=== PATIENT | female | born 1950 | race Caucasian/White ===

== ENCOUNTER → 2017-12-19 12:17 | Outpatient (CLI) | payer OTHER, SELFPAY ==
--- NOTE | 2017-12-19 | DI.CT.S_ITS ---
PROCEDURE: CT ABDOMEN PELVIS W CON INDICATIONS: RIGHT LOWER QUADRANT PAIN TECHNIQUE: After the administration of oral and intravenous contrast, 5 mm thick sections acquired from the diaphragms to the symphysis. 5 mm thick coronal and sagittal reformats were performed. For radiation dose reduction, the following was used: automated exposure control, adjustment of mA and/or kV according to patient size. COMPARISON: [facility], CT, ABDOMEN/PELVIS WITH CONTRAST, 12/10/2012, 15:11. FINDINGS: Image quality: Adequate ABDOMEN: Lung bases: Lung bases are clear. Heart size is normal. Solid organs: Liver is normal in size and enhancement. Gallbladder is present. Biliary system is non-dilated. Pancreas enhances normally. Spleen is normal in enhancement. Mildly prominent splenic size. No adrenal nodules. Kidneys are normal in size and enhancement, without hydronephrosis. Peritoneum and bowel: Mild wall thickening in the proximal stomach. Small bowel, and colon loops are normal in caliber and wall thickness. The colon is patulous and contains a moderate amount of stool. The cecum is in the right upper quadrant. The appendix is not identified. There are no secondary signs of acute appendicitis. No free fluid or air. Nodes and vessels: No retroperitoneal or mesenteric adenopathy. Aorta and inferior vena cava are normal in caliber. Miscellaneous: No ventral hernias. PELVIS: Genitourinary: Mild bladder wall thickening. Hysterectomy with increased soft tissue density in the expected location of the cervix. Miscellaneous: Fat-containing left-sided inguinal hernia. No adenopathy. Bones: No suspicious bony lesions. No vertebral body compression fractures. IMPRESSION: 1. Bladder wall thickening with increased soft tissue density in the expected location of the cervix. An underlying mass lesion cannot be excluded. Age-indeterminate inflammatory change is also possible. 2. Markedly patulous colon with the cecum in the right upper quadrant. No obstruction or perforation. 3. Mild wall thickening in the proximal stomach may be due to underdistention. Underlying mass cannot be excluded. 4. There is no specific right lower quadrant abnormality to correspond with the clinical area of concern. Dictated by: Kaiden Lao M.D. on 12/19/2017 at 13:56 Approved by: Kaiden Lao M.D. on 12/19/2017 at 14:04
== END ==
PROVIDERS: PCP Internal Medicine; Visit Provider Physician Assistant
DX: R10.31 Right lower quadrant pain (principal); N32.89 Other specified disorders of bladder
CPT/HCPCS: 74177; Q9967

== ENCOUNTER → 2017-12-25 11:00 | Outpatient (CLI) | payer OTHER, SELFPAY ==
--- NOTE | 2017-12-25 | DI.US.S_ITS ---
PROCEDURE: US PELVIC COMPLETE INDICATIONS: BLADDER WALL THICKENING TECHNIQUE: Real-time scanning was performed of the pelvic organs, with image documentation. Additional endovaginal scanning was necessary due to incomplete visualization of the adnexal and endometrial structures by transabdominal scanning. COMPARISON: [facility], CT, CT ABDOMEN PELVIS W CON, 12/19/2017, 13:09. FINDINGS: Transabdominal scanning: Limited scanning through the kidneys shows no hydronephrosis. No pathologic free abdominal or pelvic fluid. Endovaginal scanning: Uterus: Surgically absent. No soft tissue mass is seen posterior to the bladder. Ovaries: Normal right ovary measuring 1.8 x 0.9 x 1.8 cm. Left ovary is not visualized. IMPRESSION: No soft tissue mass seen posterior to the bladder and the urinary bladder appears grossly normal. Dictated by: Milton GALE Interpreted: Jeremy Nelson MD on 12/25/2017 at 13:55 Approved by: Jeremy Nelson M.D. on 12/25/2017 at 21:40
--- NOTE | 2017-12-25 | DI.US.S_ITS ---
PROCEDURE: US ABDOMEN COMPLETE INDICATIONS: Mild wall thickening in abdomen and pelvis TECHNIQUE: Real-time scanning was performed of the abdominal and retroperitoneal organs, with image documentation. COMPARISON: [facility], CT, CT ABDOMEN PELVIS W CON, 12/19/2017, 13:09. [facility], US, ABDOMEN COMPLETE, 11/26/2012, 16:12. FINDINGS: Liver: Liver is normal in size and homogeneous in echotexture. Gallbladder: No gallstones identified. Normal gallbladder wall. No pericholecystic fluid. Negative sonographic Valentin sign. Biliary ducts: Intrahepatic bile ducts are non-dilated. Extrahepatic bile duct caliber measures 6.0 mm. Normal is 6-7 mm or less in diameter, or 10 mm or less post-cholecystectomy. Pancreas: Visualized portions of the pancreas are sonographically normal. Spleen: Spleen is normal in size and homogeneous in echotexture. Kidneys: Kidneys are normal in size and echotexture. Right kidney measures 8.1 cm long; left kidney measures 8.2 cm long. No hydronephrosis or nephrolithiasis. No solid masses. Aorta: Visualized aorta is normal in caliber at less than 3 cm. Iliacs: Proximal common iliac arteries are normal in caliber at less than 2.5 cm. IVC: Intrahepatic inferior vena cava is patent. Miscellaneous: No free abdominal fluid. IMPRESSION: Normal exam. Dictated by: Milton CHIN Interpreted: Jeremy Nelsno MD on 12/25/2017 at 13:52 Approved by: Jeremy Nelson M.D. on 12/25/2017 at 21:40
== END ==
PROVIDERS: PCP Internal Medicine; Visit Provider Physician Assistant
DX: N32.89 Other specified disorders of bladder (principal); R93.5 Abnormal findings on diagnostic imaging of other abdominal regions, including retroperitoneum
CPT/HCPCS: 76700; 76856

== ENCOUNTER → 2018-07-08 16:27 | Outpatient (CLI) | payer OTHER, SELFPAY ==
--- NOTE | 2018-07-08 16:32 | DI.RAD.S_ITS ---
PROCEDURE: XR TIBIA FUBULA RT 2V INDICATIONS: RIGHT LOWER LEG PAIN TECHNIQUE: 2 views of the tibia and fibula were acquired. COMPARISON: None. FINDINGS: Bones: No fractures or dislocations. No suspicious bony lesions. No focal osseous destruction. Soft tissues: No suspicious soft tissue calcifications or masses. IMPRESSION: No focal osseous destruction to suggest advanced osteomyelitis. No fracture. Dictated by: Ayo Beckman M.D. on 07/08/2018 at 16:53 Approved by: Ayo Beckman M.D. on 07/08/2018 at 16:55
== END ==
PROVIDERS: PCP Internal Medicine; Visit Provider Internal Medicine
DX: M79.661 Pain in right lower leg (principal)
CPT/HCPCS: 73590

== ENCOUNTER → 2018-08-08 13:23 | Outpatient (REF) | payer OTHER, SELFPAY | LOC: LAB 13:23 | PROVIDERS: PCP Internal Medicine; Visit Provider Internal Medicine | DX: S81.801A Unspecified open wound, right lower leg, initial encounter (principal) | CPT/HCPCS: 87070; 87077; 87147; 87186; 87205 ==

== ENCOUNTER → 2018-08-13 10:54 | Outpatient (CLI) | payer OTHER, SELFPAY | PROVIDERS: PCP Internal Medicine; Visit Provider Family Medicine | DX: I87.2 Venous insufficiency (chronic) (peripheral) (principal); L97.812 Non-pressure chronic ulcer of other part of right lower leg with fat layer exposed; A49.02 Methicillin resistant Staphylococcus aureus infection, unspecified site; Z92.25 Personal history of immunosuppression therapy | CPT/HCPCS: 11042; 99203; 99213 ==

== ENCOUNTER → 2018-08-23 13:48 | Outpatient (CLI) | payer OTHER, SELFPAY | PROVIDERS: PCP Internal Medicine; Visit Provider Family Medicine | DX: I87.2 Venous insufficiency (chronic) (peripheral) (principal); L97.811 Non-pressure chronic ulcer of other part of right lower leg limited to breakdown of skin; A49.02 Methicillin resistant Staphylococcus aureus infection, unspecified site; L08.9 Local infection of the skin and subcutaneous tissue, unspecified; Z92.25 Personal history of immunosuppression therapy | CPT/HCPCS: 11104; 87070; 87075; 87205 ==

== ENCOUNTER → 2018-08-28 09:36 | Outpatient (CLI) | payer OTHER, SELFPAY | PROVIDERS: PCP Internal Medicine; Visit Provider Family Medicine | DX: I87.2 Venous insufficiency (chronic) (peripheral) (principal); L97.811 Non-pressure chronic ulcer of other part of right lower leg limited to breakdown of skin; Z92.25 Personal history of immunosuppression therapy | CPT/HCPCS: 97597 ==

== ENCOUNTER → 2018-09-04 15:05 | Outpatient (CLI) | payer OTHER, SELFPAY | PROVIDERS: PCP Internal Medicine; Visit Provider Family Medicine | DX: I87.2 Venous insufficiency (chronic) (peripheral) (principal); L97.811 Non-pressure chronic ulcer of other part of right lower leg limited to breakdown of skin; Z92.25 Personal history of immunosuppression therapy; L08.9 Local infection of the skin and subcutaneous tissue, unspecified | CPT/HCPCS: 97597 ==

== ENCOUNTER → 2018-09-11 13:21 | Outpatient (CLI) | payer OTHER, SELFPAY | PROVIDERS: PCP Internal Medicine; Visit Provider Family Medicine | DX: I87.2 Venous insufficiency (chronic) (peripheral) (principal); L97.812 Non-pressure chronic ulcer of other part of right lower leg with fat layer exposed; Z92.25 Personal history of immunosuppression therapy | CPT/HCPCS: 97597 ==

== ENCOUNTER → 2018-09-18 13:11 | Outpatient (CLI) | payer OTHER, SELFPAY | PROVIDERS: PCP Internal Medicine; Visit Provider Family Medicine | DX: Z48.817 Encounter for surgical aftercare following surgery on the skin and subcutaneous tissue (principal); I87.2 Venous insufficiency (chronic) (peripheral); Z92.25 Personal history of immunosuppression therapy | CPT/HCPCS: 99212 ==

== ENCOUNTER → 2019-04-16 14:33 | Outpatient (CLI) | payer OTHER, SELFPAY | PROVIDERS: PCP Internal Medicine; Visit Provider Specialist | DX: R30.0 Dysuria (principal) | CPT/HCPCS: 87086 ==

== ENCOUNTER → 2019-04-24 08:01 | Outpatient (CLI) | payer OTHER, SELFPAY ==
--- NOTE | 2019-04-24 | DI.MRI.S_ITS ---
PROCEDURE: MR HEAD/BRAIN WO CON INDICATIONS: DOUBLE VISION TECHNIQUE: Non-contrast axial T1 spin echo, axial T2 fast spin echo, sagittal and axial FLAIR, coronal T2 fast spin echo, axial gradient echo, axial diffusion and ADC through the brain. COMPARISON: [facility], CT, SINUS SCREEN WO CONTRAST, 06/30/2016, 13:47. FINDINGS: Image quality: Excellent. CSF spaces: Ventricles appear symmetric in size and shape. Basal cisterns are patent. No extra-axial fluid collections. Brain: No intracranial bleeds or mass effects. There is mild cerebral volume loss for age. There are mild periventricular and deep white matter chronic small vessel ischemic changes. Brainstem appears normal. Diffusion-weighted images show no acute ischemic insults. No chronic ischemic insults. Normal intravascular flow voids are present. Skull and face: Calvarial bone marrow is normal in signal. Orbits are normal. Sinuses: Mild ethmoid sinus mucosal thickening bilaterally. Mastoids are clear. IMPRESSION: 1. No acute intracranial abnormalities. 2. Mild cerebral volume loss and chronic microvascular ischemic changes. 3. Mild bilateral ethmoid sinus mucosal thickening. Dictated by: Bonifacio Harris M.D. on 04/24/2019 at 9:15 Approved by: Bonifacio Harris M.D. on 04/24/2019 at 10:57
== END ==
PROVIDERS: PCP Internal Medicine; Visit Provider Internal Medicine
DX: H53.2 Diplopia (principal); J32.2 Chronic ethmoidal sinusitis
CPT/HCPCS: 70551

== ENCOUNTER → 2019-09-29 16:24 | Outpatient (CLI) | payer OTHER, SELFPAY ==
--- NOTE | 2019-09-29 16:29 | DI.RAD.S_ITS ---
PROCEDURE: XR FINGER LT MIN 2V INDICATIONS: GOUT TECHNIQUE: AP hand, 2 views of the first finger(s) acquired. COMPARISON: None. FINDINGS: Bones: No fractures or dislocations. Osteoarthritic changes are noted at first CMC joint, first MCP joint and first interphalangeal joint. No gross bony erosive changes are seen. No suspicious bony lesions. Soft tissues: No suspicious soft tissue calcifications. IMPRESSION: Osteoarthritic changes throughout left thumb. No bony erosive changes. No fracture or dislocation. Dictated by: Randall Mortensen M.D. on 09/29/2019 at 18:21 Approved by: Randall Mortensen M.D. on 09/29/2019 at 18:22
== END ==
PROVIDERS: PCP Internal Medicine; Referring Provider Internal Medicine; Visit Provider Internal Medicine
DX: M10.9 Gout, unspecified (principal)
CPT/HCPCS: 73140

== ENCOUNTER 2019-12-26 16:49 | Emergency (ER) | payer OTHER, SELFPAY ==
[2019-12-26 16:51] VITALS: BP 133/61; PULSE 74; RESP 18; TEMP 36.6; O2SAT 98; BMI 22.6
--- NOTE | 2019-12-26 17:00 | DI.RAD.S_ITS ---
PROCEDURE: XR FOREARM RT 2V INDICATIONS: check for cat teeth TECHNIQUE: 2 views of the forearm were acquired. COMPARISON: None. FINDINGS: Bones: No fractures or dislocations. No suspicious bony lesions. Soft tissues: No suspicious soft tissue calcifications or masses. No radiodense foreign body in soft tissue. IMPRESSION: 1. No radiodense foreign bodies the soft tissue, specifically cat teeth. Dictated by: Geneva Hinojosa M.D. on 12/26/2019 at 17:25 Approved by: Geneva Hinojosa M.D. on 12/26/2019 at 17:26
--- NOTE | 2019-12-26 17:32 | ED_ITS ---
HPI - Extremity Injury (Upper) <Sweetie Dale PA-C - Last Filed: 12/26/19 23:39> General Chief Complaint: Extremity Injury, Upper Stated Complaint: RIGHT ARM CAT BITE Time Seen by Provider: 12/26/19 17:31 Source: patient Mode of arrival: Ambulatory Limitations: no limitations History of Present Illness HPI narrative: This is a well-appearing 69-year-old presents to the emergency department with isolated complaint of cat bite to her right forearm that was sustained yesterday with associated increased redness and tenderness in the area of the bite. She was taking both her dog and her cat to the vet when her cat escaped from the cat carrier and she is able to get it back in, but it was very upset; she was holding it at the vet while they were working with it and giving shots/trimmimg hair and he bit her arm, puncturing it in four places. She washed the area and hope that it would not become infected, however this morning she saw that 2 of these puncture wounds were starting to ooze and she was having some redness developed on her arm, the redness worsened and she presented to the emergency department because of this. She states that this is an isolated injury and she has no other complaints or concerns. She notes an allergy to penicillin. Also notes that she is currently taking doxycycline 200 per day for rosacea flare. She denies fever, nausea, vomiting, chills, diarrhea, or any other symptoms. complaint: injury to: right and forearm Onset (ago): day(s) (1) Other Extremity Injury: Right: arm Other injuries: none Handedness: right Place: other (vet) Severity: mild Severity scale (1-10): 2 Relieving factors: none Exacerbating factors: none Context: other (Cat bite) Associated symptoms: denies other symptoms Treatments prior to arrival: other (Is current lead taking doxycycline for rosacea) Related Data Home Medications Medication Instructions Recorded Confirmed acyclovir [Zovirax] 400 mg BID #0 06/23/16 04/16/19 budesonide 3 mg 3 mg PO DAILY 04/16/19 04/16/19 capsule,delayed,extended release Previous Rx's Medication Instructions Recorded estradiol 0.5 mg tablet 0.5 mg PO QDAY #90 tab 04/16/19 sulfamethoxazole 800 1 tab PO BID #10 tab 04/16/19 mg-trimethoprim 160 mg tablet oxybutynin chloride 10 mg 10 mg PO QDAY #90 tab 06/24/19 tablet,extended release 24 hr sulfamethoxazole-trimethoprim 1 tab PO BID #14 tab 12/26/19 [Bactrim DS] Allergies Allergy/AdvReac Type Severity Reaction Status Date / Time Penicillins Allergy Mild RASH Verified 04/16/19 14:23 Review of Systems <Sweetie Dale PA-C - Last Filed: 12/26/19 23:39> Review of Systems Narrative: GENERAL: Denies chills, fatigue, malaise, fever, sweats. HEENT: Denies sinus pain, ear pain, sore throat, difficulty swallowing, dizziness. RESPIRATORY: Denies dyspnea, cough, wheezing, hemoptysis, sputum. CARDIOVASCULAR: Denies chest pain, palpitations, orthopnea, edema MUSCULOSKELETAL: denies weakness, joint pain, or bony pain SKIN: Denies rash, positive for forarm skin swelling with erythema increasing in size 1st noticed this morning with some leakage of fluid from puncture wounds, or other NEUROLOGIC: Denies weakness, headache, numbness, change in speech, confusion, seizures, incoordination. PSYCHIATRIC: No concerning psychosocial issues. 12 point review of systems is negative except for those stated above ROS Unobtainable: All systems reviewed & are unremarkable except as noted in HPI and below Patient History <Sweetie Dale PA-C - Last Filed: 12/26/19 23:39> Medical History Cystocele (Acute) Postmenopausal hormone replacement therapy (Acute) Recurrent UTI (Acute) Surgical History History of tonsillectomy Status post laparoscopic supracervical hysterectomy Family History Brother Age: 66 Mental health problem Alcoholic Father Alcoholic Mother Mental health problem Alcoholic Social History Smoking Status: Never smoker Smoking Status: Never smoker Substance Use Type: does not use Exam <Sweetie Dale PA-C - Last Filed: 12/26/19 23:39> Narrative Exam Narrative: GENERAL: 69 year old patient appears younger than stated age. Well-nourished, well-developed patient, in mild distress. HEAD: Atraumatic. Normocephalic. EYES: Pupils equal round and reactive. Extraocular motions intact. No scleral icterus. No injection or drainage. ENT: Nose without bleeding, purulent drainage. Throat without erythema, tonsillar hypertrophy or exudate. Airway patent. NECK: Trachea midline. Non tender CARDIOVASCULAR: Regular rate and rhythm without murmurs, gallops, or rubs. RESPIRATORY: Clear to auscultation. Breath sounds equal bilaterally. No wheezes, rales, or rhonchi. EXTREMITIES: There is an approximately 7 x 10 area of erythema with poorly defined edges on her anterior right forearm with 4 small puncture wounds consistent with a cat bite, there is associated tenderness, no drainage is no robert, there is some heat present. No clear streaking up the arm is noted, however the area of erythema does appear to be extending towards the antecubital fossa. No edema or joint tenderness. BACK: Nontender without deformity or crepitance. No flank tenderness. NEURO: AOx3. SKIN: No rash or erythema of visible areas Initial Vital Signs Initial Vital Signs: Vital Signs Temperature 97.8 F 12/26/19 16:51 Pulse Rate 74 12/26/19 16:51 Respiratory Rate 18 12/26/19 16:51 Blood Pressure 133/61 12/26/19 16:51 Pulse Oximetry 98 12/26/19 16:51 <Khang Moyer MD - Last Filed: 01/09/20 07:53> Initial Vital Signs Initial Vital Signs: Vital Signs Temperature 97.8 F 12/26/19 16:51 Pulse Rate 74 12/26/19 16:51 Respiratory Rate 18 12/26/19 16:51 Blood Pressure 133/61 12/26/19 16:51 Pulse Oximetry 98 12/26/19 16:51 Course <Sweetie Dale PA-C - Last Filed: 12/26/19 23:39> Course Course Narrative: Area of erythema was marked with a skin marker. Orders Ordered: Discontinued Medications Trimethoprim/Sulfamethoxazole (Bactrim Ds) 1 tab PO NOW ONE Stop: 12/26/19 18:16 Last Admin: 12/26/19 18:23 Dose: 1 tab Documented by: BTASHA Vital Signs Vital signs: Vital Signs - 8 hr 12/26/19 16:51 12/26/19 19:30 Temperature 97.8 F Pulse Rate 74 62 Respiratory Rate 18 15 Blood Pressure 133/61 171/78 H Pulse Oximetry 98 99 <Khang Moyer MD - Last Filed: 01/09/20 07:53> Orders Ordered: Discontinued Medications Trimethoprim/Sulfamethoxazole (Bactrim Ds) 1 tab PO NOW ONE Stop: 12/26/19 18:16 Last Admin: 12/26/19 18:23 Dose: 1 tab Documented by: ABDULLAHI Vital Signs Vital signs: Vital Signs - 8 hr 12/26/19 16:51 12/26/19 19:30 Temperature 97.8 F Pulse Rate 74 62 Respiratory Rate 18 15 Blood Pressure 133/61 171/78 H Pulse Oximetry 98 99 MDM - Extremity Injury (Upper) <Sweetie Dale PA-C - Last Filed: 12/26/19 23:39> Differential Diagnosis Differential diagnosis: Likely other (cat bite, cellulitis) Medical Records Attestation: I reviewed the patient's medical records. Imaging Data Extremity x-ray #1: Attestation: I personally reviewed and interpreted this imaging study as follows: Radiologist's Impression: [place] [address] XRay Report Signed Patient: Ann Murcia JMR#: [id number] : 8Acct:[id number] Age/Sex: 69 / FDate of Service: 12/26/19 Loc: ED Accession Number: [id number] Procedure: XR forearm RT 2V Ordering Provider: Khang Moyer MD PROCEDURE: XR FOREARM RT 2V INDICATIONS: check for cat teeth TECHNIQUE: 2 views of the forearm were acquired. COMPARISON: None. FINDINGS: Bones: No fractures or dislocations. No suspicious bony lesions. Soft tissues: No suspicious soft tissue calcifications or masses. No radiodense foreign body in soft tissue. IMPRESSION: 1. No radiodense foreign bodies the soft tissue, specifically cat teeth. Dictated by: Geneva Hinojosa M.D. on 12/26/2019 at 17:25 Approved by: Geneva Hinojosa M.D. on 12/26/2019 at 17:26 MDM Narrative Medical decision making narrative: This is a well-appearing 69-year-old who presented with complaint of a cat bite sustained yesterday while after that, who woke up with erythema and tenderness to her forearm around the bite this morning that has been worsening today. This was an isolated complaint. I have low suspicion for a systemic infection, based on her exam, vitals, and history. She does appear to have a cellulitis associated with the bite she sustained yesterday, she is currently taking doxycycline for rosacea, and she has a penicillin allergy. She is prescribed Bactrim for 7 days and advised to f ollow-up with her PCP closely and watch carefully for worsening or changing of her symptoms. She was provided with emergency return precautions and all questions were answered. Discharge Plan Departure Patient Disposition: Home Clinical Impression: Cat bite involving extremity Discharge Date/Time: 12/26/19 19:31 Instructions: How to Care for a Domestic Animal Bite, DI for Animal Bites Activity Restrictions/Additional Instructions: Thank you for letting be part of your care to the emergency department. There is no evidence of an emergent or life threatening illness at this time, but follow up with your doctor in 1-2 days is recommended nonetheless to continue to rule out serious underlying causes of your symptoms. Please call the office for an appointment. Please return to the Emergency Department for any worsening or persistent symptoms. Please take medications as directed. Please take the prescribed medication (Bactrim) for the next 7 days it is okay to take this in addition to the doxycycline that you are taking currently is that this prescription electronically to [facility] as we discussed.. Please monitor for any signs of worsening infection as we discussed. And I recommend you follow-up with your primary care physician in the next 2-5 days to be reassessed. Prescriptions: New sulfamethoxazole-trimethoprim [Bactrim DS] 800-160 mg tablet 1 tab PO BID Qty: 14 RF: 0 No Action acyclovir [Zovirax] 200 mg capsule 400 mg BID Qty: 0 RF: 0 oxybutynin chloride 10 mg tablet extended release 24hr 10 mg PO QDAY Qty: 90 RF: 2 budesonide 3 mg capsule,delayed,extend.release 3 mg PO DAILY RF: 0 estradiol 0.5 mg tablet 0.5 mg PO QDAY Qty: 90 RF: 3 sulfamethoxazole-trimethoprim [Bactrim DS] 800-160 mg tablet 1 tab PO BID Qty: 10 RF: 1 Referrals: Abdiel Kang MD [Primary Care Provider] -
[2019-12-26] MEDS: TRIMETH/SULFA 160/800 (DS) TABLET 1 TAB PO (18:23)
--- NOTE | 2019-12-26 18:28 | PC.NURSE ---
pt has 4 punctures from cat bite in rt forearm, redness surrounding the area.
[2019-12-26 19:30] VITALS: BP 171/78; PULSE 62; RESP 15; O2SAT 99
== END 2019-12-26 19:31 | disposition home or self-care (01) ==
PROVIDERS: Emergency Provider Student in an Organized Health Care Education/Training Program; PCP Internal Medicine
DX: S51.851A Open bite of right forearm, initial encounter (principal); W55.01XA Bitten by cat, initial encounter
CPT/HCPCS: 73090; 99283

== ENCOUNTER → 2020-06-22 19:08 | Outpatient (ROUT) | payer OTHER, SELFPAY ==
[2020-06-22 19:26] LABS: Add Manual Diff / Slide Review NO; Basophils Absolute Auto 0 /uL (0-100); Basophils Percent Auto 0.8 % (0-2); Eosinophils Absolute Auto 100 /uL (0-450); Eosinophils Percent Auto 1.3 % (2-4); Hematocrit 38.9 % (36-46); Hemoglobin 13.2 g/dL (12.0-16.0); Lymphocytes Absolute Auto 1300 /uL (1100-4500); Lymphocytes Percent Auto 21.2 % (25-40); Mean Corpuscular HGB Conc 33.9 % (30-36); Mean Corpuscular Hemoglobin 33.4 PG (26-34); Mean Corpuscular Volume 98.3 fL (80-100); Monocytes Absolute Auto 600 /uL (0-900); Monocytes Percent Auto 9.1 % (3-14); Neutrophils Absolute Auto 4100 /uL (1500-7000); Neutrophils Percent Auto 67.6 % (50-75); Platelet Count 216 X10^3/uL (150-400); Red Blood Cell Count 3.96 X10^6/uL (4.0-5.2); Red Cell Distribution Width 13.3 % (11.6-14.8); White Blood Cell Count 6.1 X10^3/uL (4.5-11.0)
[2020-06-22 19:36] LABS: Alanine Aminotransferase 17 IU/L (<35); Albumin 4.1 g/dL (3.5-5.0); Albumin Globulin Ratio 1.5 (1.0-2.8); Alkaline Phosphatase 78 U/L (38-126); Aspartate Aminotransferase 32 IU/L (14-36); Bilirubin Total 0.4 mg/dL (0.2-1.3); Blood Urea Nitrogen 21 mg/dL (7-17); Calcium 9.6 mg/dL (8.4-10.2); Carbon Dioxide 30 mmol/L (22-32); Chloride 105 mmol/L (98-107); Estimated Glomerular Filt Rate > 60.0 mL/min (>60); Globulin 2.8 g/dL (1.7-4.1); Glucose 99 mg/dL (80-110); HEMOLYSIS < 15 (0-50); Potassium 4.3 mmol/L (3.4-5.1); Sodium 139 mmol/L (137-145); Total Protein 6.9 g/dL (6.3-8.2)
[2020-06-22 19:42] LABS: C-Reactive Protein Quant < 0.5 mg/dL (<1.0)
[2020-06-22 20:03] LABS: TSH w/ Reflex to FT4 1.25 uIU/mL (0.47-4.68)
[2020-06-22 20:52] LABS: Erythrocyte Sedimentation Rate 7 MM/HR (0-20)
== END ==
PROVIDERS: PCP Internal Medicine; Visit Provider Internal Medicine
DX: E03.9 Hypothyroidism, unspecified (principal); K75.4 Autoimmune hepatitis
CPT/HCPCS: 80053; 84443; 85025; 85651; 86140

== ENCOUNTER → 2020-11-26 16:35 | Outpatient (CLI) | payer OTHER, SELFPAY ==
--- NOTE | 2020-11-26 16:42 | DI.RAD.S_ITS ---
PROCEDURE: XR CERVICAL SPINE 2V OR 3V INDICATIONS: CERVICALGIA OF [place]CCIPITO [place] AXIAL REGION TECHNIQUE: 3 view(s) of the cervical spine were acquired. COMPARISON: MR, C-SPINE WITHOUT CONTRAST, 09/12/2012, 13:20. [facility], CR, SPINE CERVICAL MIN 4VW, 02/18/2016, 16:18. [facility] [place], , SPINE CERVICAL 2 OR 3VW, 03/15/2017, 12:04. FINDINGS: Bones: No fractures or dislocations to the C6 level. There is grade 1 anterolisthesis of C3 on C4. The lateral masses of C1 appear intact on the odontoid view. No suspicious bony lesions. Severe degenerative disc disease at C4-C5 and C5-C6, and moderate degenerative disease at C6-C7. Bilateral facet arthropathy, most pronounced at C2-C3, C3-C4 and C4-C5 on the left. Soft tissues: No prevertebral soft tissue swelling. IMPRESSION: 1. Severe degenerative disc and facet disease in cervical spine. Dictated by: Bonifacio Harris M.D. on 11/26/2020 at 22:26 Approved by: Bonifacio Harris M.D. on 11/26/2020 at 22:30
--- NOTE | 2020-11-26 16:42 | DI.RAD.S_ITS ---
PROCEDURE: XR LUMBAR SPINE 2-3V INDICATIONS: low back pain TECHNIQUE: 3 views of the lumbar spine were acquired. COMPARISON: [facility], [place], MRI L-SPINE W/O, 06/18/2006, 14:28. [facility], [place], L-SPINE 2-3 VIEWS, 01/16/2008, 13:41. [facility], [place], L-SPINE MINIMUM 4 VIEWS, 01/29/2013, 13:29. FINDINGS: Bones: 5 [id number] vertebrae are present. There is moderate levoscoliosis normal bony alignment. No vertebral body compression fractures. No suspicious bony lesions. Degenerative disc disease, severe at L1-L2, moderate at L2-L3 and L3-L4. Moderate facet arthropathy at L2-L3, L3-L4 L4-L5 and L5-S1. Compared to the last exam on 01/29/2013, there is worsening of disc and facet degeneration. Soft tissues: Overlying bowel gas pattern is normal. Atherosclerotic calcifications. IMPRESSION: 1. Worsening of degenerative disc and facet disease. 2. Levoscoliosis. Dictated by: Bonifacio Harris M.D. on 11/26/2020 at 22:30 Approved by: Bonifacio Harris M.D. on 11/27/2020 at 8:10
[2020-11-26 18:19] LABS: TSH w/ Reflex to FT4 0.21 uIU/mL (0.47-4.68)
[2020-11-26 21:02] LABS: Free T4, Direct Thyroxine 1.82 ng/dL (0.78-2.19)
== END ==
PROVIDERS: PCP Internal Medicine; Referring Provider Internal Medicine; Visit Provider Internal Medicine
DX: M50.321 Other cervical disc degeneration at C4-C5 level (principal); M48.02 Spinal stenosis, cervical region; M47.812 Spondylosis without myelopathy or radiculopathy, cervical region; M43.12 Spondylolisthesis, cervical region; E03.9 Hypothyroidism, unspecified; M54.5 Low back pain; M51.36 Other intervertebral disc degeneration, lumbar region; M47.816 Spondylosis without myelopathy or radiculopathy, lumbar region; M47.817 Spondylosis without myelopathy or radiculopathy, lumbosacral region; M41.86 Other forms of scoliosis, lumbar region
CPT/HCPCS: 36415; 72040; 72100; 84439; 84443

== ENCOUNTER → 2021-01-28 17:17 | Outpatient (CLI) | payer OTHER, SELFPAY ==
[2021-01-28 19:07] LABS: TSH w/ Reflex to FT4 0.28 uIU/mL (0.47-4.68)
[2021-01-28 19:54] LABS: Free T4, Direct Thyroxine 1.27 ng/dL (0.78-2.19)
== END ==
PROVIDERS: PCP Internal Medicine; Referring Provider Internal Medicine; Visit Provider Internal Medicine
DX: E03.9 Hypothyroidism, unspecified (principal)
CPT/HCPCS: 36415; 84439; 84443

== ENCOUNTER → 2021-04-25 12:07 | Outpatient (CLI) | payer OTHER, SELFPAY ==
[2021-04-25 14:34] LABS: COVID19 -Nasal RAPID Negative (Negative)
== END ==
PROVIDERS: PCP Internal Medicine; Referring Provider Nurse Practitioner Family; Visit Provider Nurse Practitioner Family
DX: Z20.822 Contact with and (suspected) exposure to COVID-19 (principal); Z01.812 Encounter for preprocedural laboratory examination
CPT/HCPCS: 87635

== ENCOUNTER 2021-04-27 08:29 | Day surgery (SDC) | payer OTHER, SELFPAY ==
[2021-04-27] VITALS (8 sets, daily range): BP systolic 126–155; BP diastolic 63–84; PULSE 65–86; RESP 12–19; TEMP 36.3–36.9; O2SAT 97–100; BMI 22.4
--- NOTE | 2021-04-27 09:12 | PM.OP.EGD ---
Operative Date/Time/Diagnoses Date of procedure: 04/27/21 Pre-op diagnosis: See indication and findings Procedure & Clinicians Study performed: EGD with possible dilation Indications: Dysphagia Surgeon: Kiley Lynn Procedure Notes Procedure in detail: After informed consent was obtained the patient was placed in left lateral decubitus position. The video upper scope was placed into the oropharynx with the patient's help swallowed into the esophagus. The esophagus stomach and duodenum were carefully examined. On withdrawal, retroflexed view the GE junction was performed. The scope was removed. The patient tolerated procedure well. Blood loss none Complications none Sedation mac Findings 1. Patchy white to yellow lesions in the entire esophagus consistent with Roberta. 2. No evidence for mechanical lesion at the GE junction. There may have been a very wide open Schatzki's ring. Both forward and retroflexed views were obtained and photographed. 3. Normal stomach with the exception of some small amount of retained food 4. Normal duodenal bulb and sweep All call in medication for Niranjan to treat her fungal esophagitis. She should then return in person for general follow-up visit to address her autoimmune hepatitis and her lymphocytic colitis at the same time as we discussed her dysphagia.
--- NOTE | 2021-04-27 09:13 | PM.HP.1 ---
History of Present Illness History of Present Illness Date Patient Seen: 04/27/21 Chief complaint: SDC Narrative: Dysphagia Patient History Medical History (Updated 04/27/21 @ 09:15 by Kiley Lynn MD) Cystocele Postmenopausal hormone replacement therapy Recurrent UTI Surgical History History of tonsillectomy Status post laparoscopic supracervical hysterectomy Family & Social History Family History Brother Age: 67 Mental health problem Alcoholic Father Alcoholic Mother Mental health problem Alcoholic Tobacco & Substance use: Smoking Status Never smoker alcohol intake frequency holiday/special occasion Substance Use Type does not use Meds Home Medications and Allergies Home Medications Medication Instructions Recorded Confirmed Type acyclovir 200 mg capsule (Zovirax) 400 mg BID #0 06/23/16 04/27/21 History budesonide 3 mg 3 mg PO DAILY 04/16/19 04/27/21 History capsule,delayed,extended release oxybutynin chloride 10 mg See Rx Instructions .ROUTE 02/17/20 04/27/21 Rx tablet,extended release 24 hr .COMPLEX #90 tab celecoxib 200 mg capsule 200 mg PO DAILY 11/12/20 04/27/21 History levothyroxine 150 mcg tablet 150 mcg PO 11/12/20 11/12/20 History (Synthroid) levothyroxine 75 mcg tablet 75 mcg PO .COMPLEX 11/12/20 04/27/21 History (Synthroid) simvastatin 40 mg tablet 40 mg PO DAILY 11/12/20 04/27/21 History venlafaxine 75 mg capsule,extended 75 mg PO DAILY 11/12/20 04/27/21 History release 24 hr estradiol 0.5 mg tablet See Rx Instructions .ROUTE 03/10/21 04/27/21 Rx .COMPLEX #90 tab Allergies Allergy/AdvReac Type Severity Reaction Status Date / Time Penicillins Allergy Mild RASH Verified 04/27/21 08:53 Exam Vital Signs (past 8 hours): - 04/27/21 08:59 Temperature 97.6 F Pulse Rate 86 Respiratory Rate 16 Blood Pressure 155/84 H Pulse Oximetry 100 Oxygen Delivery Method Room Air Narrative Exam Narrative: Oropharynx free of lesions Chest clear to auscultation percussion Cardiac exam reveals no S3 or murmur Assessment & Plan Assessment & Plan narrative: New onset dysphagia background of some reflux. Rule out peptic stricture versus Schatzki's ring. Risks, benefits, and alternatives for for an EGD and dilation have been explained. Time Spent With Patient Critical Care time: I spent a total of [] minutes of critical care time on this patient's care today; this time is exclusive of procedural time.
[2021-04-27] MEDS: SODIUM CHLORIDE 0.9% 1,000 ML 84 ML IV (09:23)
--- NOTE | 2021-04-27 10:44 | SUR.PHASEII ---
Dr faye notified in person in GI suite of patient c/o epigastric cramping which patient states is baseline. Pt now with nausea sitting on the edge of the bed. See new order.
[2021-04-27] MEDS: ONDANSETRON 4 MG ODT SL (10:53)
--- NOTE | 2021-04-27 10:54 | SUR.PHASEII ---
Patient sitting on edge of bed. Small emesis x1. Cool cloths. Zofran SL given.
--- NOTE | 2021-04-27 11:15 | SUR.PHASEII ---
Pt transferred to [facility] while she waits for us. Up to BR. Steady on feet.
--- NOTE | 2021-04-27 11:41 | SUR.PHASEII ---
ride arrived, pt left unit in stable condition.
== END 2021-04-27 11:41 | disposition home or self-care (01) ==
PROVIDERS: PCP Internal Medicine; Referring Provider Internal Medicine Gastroenterology; Visit Provider Internal Medicine Gastroenterology
PROC: 0DJ08ZZ Inspection of Upper Intestinal Tract, Via Natural or Artificial Opening Endoscopic (ICD-10-PCS; CPT 43235; principal; 2021-04-27 09:30)
DX: K20.80 Other esophagitis without bleeding (principal); K75.4 Autoimmune hepatitis; K52.832 Lymphocytic colitis; E78.00 Pure hypercholesterolemia, unspecified; E03.9 Hypothyroidism, unspecified
CPT/HCPCS: 43235; J2704

== ENCOUNTER → 2021-05-03 14:57 | Outpatient (CLI) | payer OTHER, SELFPAY ==
[2021-05-03 16:10] LABS: Alanine Aminotransferase 22 IU/L (<35); Albumin 4.4 g/dL (3.5-5.0); Albumin Globulin Ratio 1.9 (1.0-2.8); Alkaline Phosphatase 66 U/L (38-126); Aspartate Aminotransferase 32 IU/L (14-36); Bilirubin Total 0.4 mg/dL (0.2-1.3); Bilirubin Unconjugated 0.4 mg/dL (0.0-1.1); Globulin 2.3 g/dL (1.7-4.1); HEMOLYSIS < 15 (0-50); Total Protein 6.7 g/dL (6.3-8.2)
== END ==
PROVIDERS: PCP Internal Medicine; Referring Provider Internal Medicine Gastroenterology; Visit Provider Internal Medicine Gastroenterology
DX: K52.832 Lymphocytic colitis (principal); K75.4 Autoimmune hepatitis
CPT/HCPCS: 36415; 80076

== ENCOUNTER → 2021-11-14 20:09 | Outpatient (CLI) | payer OTHER, SELFPAY ==
--- NOTE | 2021-11-14 20:18 | DI.RAD.S_ITS ---
PROCEDURE: XR HAND RT MIN 3V INDICATIONS: HAND ARTHRITIS TECHNIQUE: 3 views of the hand(s) acquired. COMPARISON: [facility], CR, HAND 2V RIGHT, 11/24/2015, 16:09. [facility], CR, XR WRIST RT MIN 3V, 11/14/2021, 20:18. [facility], CR, HAND 3V RIGHT, 02/25/2008, 14:34. FINDINGS: Bones: No fractures or dislocations. Carpal bones are normally aligned. No suspicious bony lesions. There is degenerative joint disease, moderate at the 1st interphalangeal joint, the 2nd distal interphalangeal joint and the 3rd proximal interphalangeal joint, slightly progressed. Soft tissues: No suspicious soft tissue calcifications. IMPRESSION: Mild interval progression of osteoarthritic changes. Dictated by: Bonifacio Harris M.D. on 11/15/2021 at 11:51 Approved by: Bonifacio Harris M.D. on 11/15/2021 at 11:53
--- NOTE | 2021-11-14 20:18 | DI.RAD.S_ITS ---
PROCEDURE: XR HAND LT MIN 3V INDICATIONS: HAND ARTHRITIS TECHNIQUE: 3 views of the hand(s) acquired. COMPARISON: None. FINDINGS: Bones: No fractures or dislocations. Carpal bones are normally aligned. No suspicious bony lesions. Severe 2nd PIP joint osteoarthritis. Mild 1st DIP joint, 3rd PIP joint and 4th PIP joint osteoarthritis. Soft tissues: No suspicious soft tissue calcifications. IMPRESSION: Osteoarthritis as described above. Dictated by: Adriana Avina MD, PhD on 11/15/2021 at 10:17 Approved by: Adriana Avina MD, PhD on 11/15/2021 at 10:18
--- NOTE | 2021-11-14 20:18 | DI.RAD.S_ITS ---
PROCEDURE: XR WRIST RT MIN 3V INDICATIONS: HAND ARTHRITIS TECHNIQUE: Full views of the wrist were acquired. COMPARISON: [facility], , WRIST 2 VIEWS RIGHT, 11/24/2015, 16:09. [facility], HAND 2V RIGHT, 11/24/2015, 16:09. [facility], , XR HAND RT MIN 3V, 11/14/2021, 20:18. FINDINGS: Bones: No fractures or dislocations. No suspicious bony lesions. Mild degenerative joint disease at the radiocarpal joint, triscaphe joint and the 1st carpometacarpal joint and 1st metacarpophalangeal joint. Scaphoid view: Scaphoid appears intact. Soft tissues: No suspicious soft tissue calcifications. Mild soft tissue swelling. IMPRESSION: Mild degenerative joint disease. Dictated by: Bonifacio Harris M.D. on 11/15/2021 at 11:49 Approved by: Bonifacio Harris M.D. on 11/15/2021 at 11:51
--- NOTE | 2021-11-14 20:18 | DI.RAD.S_ITS ---
PROCEDURE: XR WRIST LT MIN 3V INDICATIONS: HAND ARTHRITIS TECHNIQUE: For views of the wrist were acquired. COMPARISON: None. FINDINGS: Bones: No fractures or dislocations. No suspicious bony lesions. Mild 1st CMC joint osteoarthritis. Scaphoid view: Scaphoid is intact. Soft tissues: No suspicious soft tissue calcifications. IMPRESSION: Mild 1st CMC joint osteoarthritis. Dictated by: Adriana Avina MD, PhD on 11/15/2021 at 10:16 Approved by: Adriana Avina MD, PhD on 11/15/2021 at 10:17
== END ==
PROVIDERS: PCP Internal Medicine; Referring Provider Internal Medicine; Visit Provider Internal Medicine
DX: M18.0 Bilateral primary osteoarthritis of first carpometacarpal joints (principal); M19.042 Primary osteoarthritis, left hand; M19.041 Primary osteoarthritis, right hand
CPT/HCPCS: 73110; 73130

== ENCOUNTER → 2022-08-31 15:40 | Outpatient (CLI) | payer OTHER, SELFPAY ==
[2022-08-31 16:55] LABS: Hematocrit 39.4 % (36-46); Hemoglobin 13.5 g/dL (12.0-16.0); Mean Corpuscular HGB Conc 34.3 % (30-36); Mean Corpuscular Hemoglobin 34.1 PG (26-34); Mean Corpuscular Volume 99.2 fL (80-100); Platelet Count 228 X10^3/uL (150-400); Red Blood Cell Count 3.97 X10^6/uL (4.0-5.2); Red Cell Distribution Width 13.2 % (11.6-14.8); White Blood Cell Count 5.2 X10^3/uL (4.5-11.0)
[2022-08-31 17:31] LABS: Erythrocyte Sedimentation Rate 5 MM/HR (0-20)
[2022-08-31 18:01] LABS: TSH w/ Reflex to FT4 1.25 uIU/mL (0.47-4.68)
[2022-08-31 18:35] LABS: Alanine Aminotransferase 22 IU/L (<35); Albumin 4.2 g/dL (3.5-5.0); Albumin Globulin Ratio 1.4 (1.0-2.8); Alkaline Phosphatase 69 U/L (38-126); Aspartate Aminotransferase 28 IU/L (14-36); BUN Creatinine Ratio 25.7 (6-22); Bilirubin Total 0.4 mg/dL (0.2-1.3); Blood Urea Nitrogen 19 mg/dL (7-17); C-Reactive Protein Quant < 0.5 mg/dL (<1.0); Calcium 9.4 mg/dL (8.4-10.2); Carbon Dioxide 29 mmol/L (22-32); Chloride 100 mmol/L (98-107); Cholesterol 183 mg/dL (140-199); Estimated Glomerular Filt Rate > 60 mL/min (>60); Globulin 2.9 g/dL (1.7-4.1); Glucose 78 mg/dL (80-110); HDL Cholesterol 59 mg/dL (40-60); HEMOLYSIS < 15 (0-50); LDL Cholesterol Calculated 89 mg/dL (<100); Potassium 4.5 mmol/L (3.4-5.1); Sodium 139 mmol/L (137-145); Total Protein 7.1 g/dL (6.3-8.2); Triglycerides 175 mg/dL (35-150)
== END ==
PROVIDERS: PCP Internal Medicine; Referring Provider Internal Medicine; Visit Provider Internal Medicine
DX: E03.9 Hypothyroidism, unspecified (principal); E78.2 Mixed hyperlipidemia; K75.4 Autoimmune hepatitis
CPT/HCPCS: 36415; 80053; 80061; 84443; 85027; 85651; 86140

== ENCOUNTER → 2022-09-21 14:28 | Outpatient (CLI) | payer OTHER, SELFPAY | PROVIDERS: PCP Internal Medicine; Referring Provider Internal Medicine; Visit Provider Internal Medicine | DX: Z78.0 Asymptomatic menopausal state (principal); K63.9 Disease of intestine, unspecified; Z13.820 Encounter for screening for osteoporosis; M85.852 Other specified disorders of bone density and structure, left thigh; Z79.890 Hormone replacement therapy; Z90.710 Acquired absence of both cervix and uterus | CPT/HCPCS: 77080 ==

== ENCOUNTER → 2022-09-25 12:04 | Outpatient (CLI) | payer OTHER, SELFPAY ==
[2022-09-29 12:38] LABS: Acetylcholine Blocking AB 12 % (0-25); Acetylcholine Receptor Bind AB <0.03 nmol/L (0.00-0.24)
[2022-10-03 12:35] LABS: MuSK Antibodies <1.0 U/mL (.)
== END ==
PROVIDERS: PCP Internal Medicine; Referring Provider Internal Medicine; Visit Provider Internal Medicine
DX: G70.00 Myasthenia gravis without (acute) exacerbation (principal)
CPT/HCPCS: 36415; 83519

== ENCOUNTER → 2022-12-29 14:21 | Outpatient (CLI) | payer OTHER, SELFPAY ==
--- NOTE | 2022-12-29 14:22 | DI.RAD.S_ITS ---
PROCEDURE: XR CERVICAL SPINE 4V OR 5V INDICATIONS: NECK PAIN TECHNIQUE: 5 views of the cervical spine acquired. COMPARISON: [facility], CR, XR CERVICAL SPINE 2V OR 3V, 11/26/2020, 16:45. FINDINGS: Bones: No fractures or dislocations to the C7 level. Reversal of the cervical lordosis, centered at C4. Grade 1 anterolisthesis of C3 on C4, likely due to facet arthrosis. Moderate to severe disc height loss at C4-5, C5-6. Moderate disc height loss at C6-7. Multilevel facet arthrosis, most prominent at C3-4, C4-5. Narrowing of the right neural foramen at C4-5, C5-6 . Soft tissues: No prevertebral soft tissue swelling. IMPRESSION: Multilevel degenerative disc disease, mostly moderate to severe. Grade 1 anterolisthesis of C3 on C4, likely due to marked facet arthrosis at this level. Right-sided neural foraminal narrowing at C4-5 and C5-6. Dictated by: Jagdish Beck M.D. on 12/29/2022 at 15:10 Approved by: Jagdish Beck M.D. on 12/29/2022 at 15:12
== END ==
PROVIDERS: PCP Internal Medicine; Referring Provider Physical Medicine & Rehabilitation; Visit Provider Physical Medicine & Rehabilitation
DX: M50.30 Other cervical disc degeneration, unspecified cervical region (principal); M47.812 Spondylosis without myelopathy or radiculopathy, cervical region; M43.12 Spondylolisthesis, cervical region; M48.02 Spinal stenosis, cervical region; M48.9 Spondylopathy, unspecified
CPT/HCPCS: 72050

== ENCOUNTER → 2023-02-15 14:14 | Outpatient (CLI) | payer OTHER, SELFPAY ==
--- NOTE | 2023-02-15 14:16 | DI.MRI.S_ITS ---
PROCEDURE: MR CERVICAL SPINE WO CON INDICATIONS: Cervical myeloradiculopathy TECHNIQUE: Noncontrast sagittal T1 spin echo and T2 fast spin echo, sagittal STIR, foraminal oblique sagittal T2 fast spin echo, and axial gradient echo or T2 fast spin echo through the cervical spine. COMPARISON: [facility], , C-SPINE WITHOUT CONTRAST, 09/12/2012, 13:20. FINDINGS: Image quality: Excellent. Alignment and Curvature: Reversal the normal cervical lordosis centered at C4-C5. Grade 1 anterolisthesis of C3 on C4. Grade 1 retrolisthesis of C5 on C6. Minimal anterolisthesis of T2 on T3. Bone Marrow: Mild degenerative endplate changes. No acute fractures. Spinal Cord: Visualized spinal cord has normal size and signal. No cerebellar tonsillar herniation. Paraspinous Soft Tissues: No paravertebral masses. Prevertebral soft tissues are normal in thickness. C2-C3: Normal appearance. C3-C4: Disc desiccation and a small posterior disc bulge. No central canal stenosis. Facet and uncovertebral arthropathy resulting in moderate bilateral neural foraminal stenosis. C4-C5: Severe disc desiccation height loss with a small posterior disc bulge. Mild central canal stenosis. Facet and uncovertebral arthropathy resulting in mild bilateral neural foraminal stenosis. C5-C6: Severe disc desiccation height loss with a posterior disc bulge. Moderate central canal stenosis. Facet and uncovertebral arthropathy resulting in moderate bilateral neural foraminal stenosis. C6-C7: Disc desiccation and posterior disc bulge resulting in moderate central canal stenosis. Facet and uncovertebral arthropathy resulting in moderate bilateral neural foraminal stenosis. C7-T1: Normal appearance. IMPRESSION: 1. Multilevel degenerative changes of the cervical spine. There is central canal stenosis, mild at C4-C5 and moderate C5-C6 and C6-C7. 2. There is moderate bilateral neural foraminal stenosis at C3-C4, C5-C6 and C6-C7. 3. Reversal the normal cervical lordosis centered at C4-C5. Grade 1 anterolisthesis of C3 on C4 and grade 1 retrolisthesis of C5 on C6. 1. Dictated by: Layton Villar M.D. on 02/15/2023 at 16:01 Approved by: Layton Villar M.D. on 02/15/2023 at 16:11
== END ==
PROVIDERS: PCP Internal Medicine; Referring Provider Physical Medicine & Rehabilitation; Visit Provider Physical Medicine & Rehabilitation
DX: M47.12 Other spondylosis with myelopathy, cervical region (principal); M47.22 Other spondylosis with radiculopathy, cervical region; M48.02 Spinal stenosis, cervical region; M43.12 Spondylolisthesis, cervical region; G95.9 Disease of spinal cord, unspecified
CPT/HCPCS: 72141

== ENCOUNTER 2023-02-27 07:50 | Emergency (ER) | payer OTHER, SELFPAY ==
[2023-02-27 08:15] VITALS: BP 124/57; PULSE 89; RESP 17; TEMP 36.6; O2SAT 100; BMI 22.6
[2023-02-27] MEDS: LIDOCAINE 2% W/EPI INJ 20 ML (09:07)
--- NOTE | 2023-02-27 09:07 | ED_ITS ---
HPI - Wound/Laceration General Chief Complaint: Wound/Laceration Stated Complaint: ankle bleeding no blood thinners Time Seen by Provider: 02/27/23 08:58 Source: patient Mode of arrival: Family Vehicle History of Present Illness HPI narrative: Patient complains of left medial ankle bleeding. Patient denies any blood thinners. Denies any injury to the skin. She does have some bulged veins in her legs. She does not recall having a bulge vein in this area. Patient states bleeding started spontaneously around 7:00 a.m. this morning. She did apply pressure dressing and has slowed the bleeding down. Dressing removed and there is venous blood oozing from a pinpoint area in the skin in the left medial ankle. Below the medial malleolus. Foot otherwise warm soft and pink Related Data Home Medications Medication Instructions Recorded Confirmed budesonide 3 mg 3 mg PO DAILY 04/16/19 12/29/22 capsule,delayed,extended release acyclovir 400 mg tablet 400 mg PO BID 08/31/22 12/29/22 multivitamin 1 tab PO DAILY 08/31/22 12/29/22 mycophenolate sodium 360 mg 360 mg PO Q12H 08/31/22 12/29/22 tablet,delayed release rosuvastatin 5 mg tablet 5 mg PO DAILY 08/31/22 12/29/22 tramadol 50 mg tablet 50 mg PO DAILY PRN 08/31/22 12/29/22 venlafaxine 150 mg 150 mg PO DAILY 08/31/22 12/29/22 capsule,extended release 24 hr celecoxib 200 mg capsule 200 mg PO DAILY 11/02/22 12/29/22 Previous Rx's Medication Instructions Recorded oxybutynin chloride 10 mg See Rx Instructions .Route 02/08/22 tablet,extended release 24 hr .COMPLEX #90 tabs estradiol 0.5 mg tablet See Rx Instructions .Route 07/28/22 .COMPLEX #90 tabs levothyroxine 112 mcg tablet 112 mcg PO DAILY #90 tabs 08/18/22 omeprazole 20 mg capsule,delayed 20 mg PO BID #180 caps 09/21/22 release bupropion HCl 150 mg tablet,12 hr 150 mg PO QAM #90 ea 11/02/22 sustained-release Allergies Allergy/AdvReac Type Severity Reaction Status Date / Time Penicillins Allergy Mild RASH Verified 02/27/23 14:06 Review of Systems Review of Systems Narrative: GENERAL: negative chills, fatigue, malaise, fever, sweats. HEENT: negative sinus pain, ear pain, sore throat RESPIRATORY: negative dyspnea, cough CARDIOVASCULAR: negative chest pain, palpitations GASTROINTESTINAL: negative nausea, vomiting, abdominal pain : negative dysuria, frequency, hematuria MUSCULOSKELETAL: negative muscle or bony pain SKIN: negative rash, skin lesions NEUROLOGIC: negative weakness, numbness ROS Unobtainable: All systems reviewed & are unremarkable except as noted in HPI and below Patient History Medical History Acquired hypothyroidism Cervical myelopathy with cervical radiculopathy Cervical radiculopathy, chronic Cervical spine disease Chronic back pain Cystocele Depression, major, recurrent Generalized anxiety disorder Graves disease Herpesviral infection Microscopic colitis Mixed hyperlipidemia Osteopenia after menopause Postmenopausal hormone replacement therapy Primary osteoarthritis involving multiple joints Recurrent UTI Rosacea Scoliosis Surgical History History of tonsillectomy Status post laparoscopic supracervical hysterectomy Family History Brother Mental health problem Alcoholic Cancer Cirrhosis Father Alcoholic Diabetes mellitus Cirrhosis Mother Mental health problem Alcoholic Sister Cancer Social History Smoking Status: Never smoker Smoking Status: Never smoker alcohol intake frequency: holidays/special occasions only Substance Use Type: does not use Exam Narrative Exam Narrative: GENERAL: in no distress, not toxic not dyspneic HEAD: Normocephalic. EYES: Pupils equal round EXTREMITIES: No gross deformities. Examination left lower extremity. Foot is warm soft and pink strong pedal pulse. Palpable posterior tibial pulse. Brisk cap refill. There is pinpoint skin injury to the medial ankle below the medial malleolus. It is oozing dark blood. Pressure applied. 2% lidocaine with epinephrine injected, 2 mL, to the surrounding area of the bleeding site. Pressure reapplied to this area. NEURO: AOx4. SKIN: Warm and dry PSYCH: Not anxious, is cooperative Initial Vital Signs Initial Vital Signs: Vital Signs Temperature 97.9 F 02/27/23 08:15 Pulse Rate 89 02/27/23 08:15 Respiratory Rate 17 02/27/23 08:15 Blood Pressure 124/57 L 02/27/23 08:15 Pulse Oximetry 100 02/27/23 08:15 Oxygen Delivery Method Room Air 02/27/23 08:15 Course Orders Ordered: Discontinued Medications Diphtheria/Tetanus/Acell Pertussis (Tet,Diph,Pertuss(Acell),Vac/Pf 0.5 Ml Syringe) 0.5 ml IM .ONCE ONE Stop: 02/27/23 09:07 Last Admin: 02/27/23 09:45 Dose: 0.5 ml Documented By: GOGO Vital Signs Vital signs: Vital Signs - 8 hr 02/27/23 08:15 Temperature 97.9 F Pulse Rate 89 Respiratory Rate 17 Blood Pressure 124/57 L Pulse Oximetry 100 Oxygen Delivery Method Room Air MDM - Wound/Laceration MDM Narrative Medical decision making narrative: Patient complains of left medial ankle bleeding. Patient denies any blood thinners. Denies any injury to the skin. She does have some bulged veins in her legs. She does not recall having a bulge vein in this area. Patient states bleeding started spontaneously around 7:00 a.m. this morning. She did apply pressure dressing and has slowed the bleeding down. Dressing removed and there is venous blood oozing from a pinpoint area in the skin in the left medial ankle. Below the medial malleolus. Foot otherwise warm soft and pink After history and exam lidocaine with epinephrine pressure dressing Tdap MDM CC: Left skin bleeding/ankle Complicating co-morbidities: None Data collected from: Patient Medical records reviewed: No recent visit for this complaint Differential considered: Includes but not limited to varicose vein arterial bleed venous Exam documented above, pertinent findings include: Small punctate skin injury with venous bleeding Lab Test results independently reviewed as above. Pertinent findings: None indicated Treatments: Lidocaine with epinephrine injection to site for vasoconst riction/Tdap Re-evaluations: 10:00 a.m.. No bleeding since direct pressure and 2% lidocaine with epinephrine injected. Rewrapped dressing. Return precautions reviewed with patient. Tdap given. Nontoxic at discharge. Foot warm soft and pink with strong pedal pulse and brisk cap refills and light touch intact for the toes at time of discharge Discussion: Appropriate for discharge home. Hemostasis obtained with lidocaine and epinephrine and direct pressure. Wound care instructions provided. Return precautions reviewed. Nontoxic at discharge. Patient desires discharge home. Patient on no blood thinners. No blood work indicated. No antibiotics indicated Diagnosis: Venous bleed Discharge Plan Departure Patient Disposition: Home Clinical Impression: Bleeding from varicose vein Instructions: DI for Varicose Veins, DI for Puncture Wound Activity Restrictions/Additional Instructions: See family doctor this week for re-evaluation. Please be careful cleaning the skin around the bleeding site. May dab and clean but no scrubbing. Apply pressure to this site if bleeding returns/recurs. Return if not improving. Prescriptions: No Action oxybutynin chloride 10 mg tablet extended release 24hr See Rx Instructions .ROUTE .COMPLEX Qty: 90 2RF Dose Instruction: TAKE 1 TABLET BY MOUTH EVERY DAY Rx Instructions: TAKE 1 TABLET BY MOUTH EVERY DAY levothyroxine 112 mcg tablet 112 mcg PO DAILY Qty: 90 3RF omeprazole 20 mg capsule,delayed release(DR/EC) 20 mg PO BID Qty: 180 3RF celecoxib 200 mg capsule 200 mg PO DAILY bupropion HCl 150 mg tablet sustained-release 12 hr 150 mg PO QAM Qty: 90 3RF budesonide 3 mg capsule,delayed,extend.release 3 mg PO DAILY estradiol 0.5 mg tablet See Rx Instructions .ROUTE .COMPLEX Qty: 90 4RF Dose Instruction: TAKE 1 TABLET BY MOUTH EVERY DAY FOR HORMONE REPLACEMENT Rx Instructions: TAKE 1 TABLET BY MOUTH EVERY DAY FOR HORMONE REPLACEMENT acyclovir 400 mg tablet 400 mg PO BID rosuvastatin 5 mg tablet 5 mg PO DAILY venlafaxine 150 mg capsule,extended release 24hr 150 mg PO DAILY mycophenolate sodium 360 mg tablet,delayed release (DR/EC) 360 mg PO Q12H tramadol 50 mg tablet 50 mg PO DAILY PRN multivitamin Tablet 1 tab PO DAILY Referrals: Abdiel Kang MD [Primary Care Provider] - Stand Alone Forms: Patient Portal/API
[2023-02-27] MEDS: TET,DIPH,PERTUSS(ACELL),VAC/PF 0.5 ML SYRINGE IM (09:45)
== END 2023-02-27 10:11 | disposition home or self-care (01) ==
PROVIDERS: Emergency Provider Emergency Medicine; PCP Internal Medicine
DX: I83.892 Varicose veins of left lower extremity with other complications (principal); Z23 Encounter for immunization; Z48.00 Encounter for change or removal of nonsurgical wound dressing
CPT/HCPCS: 90471; 99281; 99282; 99283; 90715

== ENCOUNTER 2023-02-27 13:44 | Emergency (ER) | payer OTHER, SELFPAY ==
[2023-02-27 14:03] VITALS: BP 123/106; PULSE 95; RESP 14; TEMP 36.3; O2SAT 99
--- NOTE | 2023-02-27 14:29 | ED.SKABFB ---
HPI - Skin/Abscess/Foreign Bdy General Chief complaint: Skin/Abscess/Foreign Body Stated complaint: here this morning bleeding again from ankle Time Seen by Provider: 02/27/23 14:12 Source: patient Mode of arrival: Ambulatory Limitations: no limitations History of Present Illness HPI narrative: Patient here this morning, I saw patient for spontaneous bleed of a small vein in the left medial ankle area. I was able to attain hemostasis with lidocaine with epinephrine and direct pressure. Patient returned home and it started bleeding again. She returns here with soaked Kerlix dressing that I would placed on. She did reinforce with Coban. It is not bleeding now. I took down the dressing. No oozing or bleeding from the ankle area. I add patient walk up and down the hallway, return back to the room, still no bleeding. Related Data Home Medications Medication Instructions Recorded Confirmed budesonide 3 mg 3 mg PO DAILY 04/16/19 12/29/22 capsule,delayed,extended release acyclovir 400 mg tablet 400 mg PO BID 08/31/22 12/29/22 multivitamin 1 tab PO DAILY 08/31/22 12/29/22 mycophenolate sodium 360 mg 360 mg PO Q12H 08/31/22 12/29/22 tablet,delayed release rosuvastatin 5 mg tablet 5 mg PO DAILY 08/31/22 12/29/22 tramadol 50 mg tablet 50 mg PO DAILY PRN 08/31/22 12/29/22 venlafaxine 150 mg 150 mg PO DAILY 08/31/22 12/29/22 capsule,extended release 24 hr celecoxib 200 mg capsule 200 mg PO DAILY 11/02/22 12/29/22 Previous Rx's Medication Instructions Recorded oxybutynin chloride 10 mg See Rx Instructions .Route 02/08/22 tablet,extended release 24 hr .COMPLEX #90 tabs estradiol 0.5 mg tablet See Rx Instructions .Route 07/28/22 .COMPLEX #90 tabs levothyroxine 112 mcg tablet 112 mcg PO DAILY #90 tabs 08/18/22 omeprazole 20 mg capsule,delayed 20 mg PO BID #180 caps 09/21/22 release bupropion HCl 150 mg tablet,12 hr 150 mg PO QAM #90 ea 11/02/22 sustained-release Allergies Allergy/AdvReac Type Severity Reaction Status Date / Time Penicillins Allergy Mild RASH Verified 02/27/23 14:06 Review of Systems Review of Systems Narrative: GENERAL: negative chills, fatigue, malaise, fever, sweats. HEENT: negative sinus pain, ear pain, sore throat RESPIRATORY: negative dyspnea, cough CARDIOVASCULAR: negative chest pain, palpitations GASTROINTESTINAL: negative nausea, vomiting, abdominal pain : negative dysuria, frequency, hematuria MUSCULOSKELETAL: negative muscle or bony pain SKIN: negative rash, skin lesions, positive skin wound NEUROLOGIC: negative weakness, numbness ROS Unobtainable: All systems reviewed & are unremarkable except as noted in HPI and below Patient History Medical History Acquired hypothyroidism Cervical myelopathy with cervical radiculopathy Cervical radiculopathy, chronic Cervical spine disease Chronic back pain Cystocele Depression, major, recurrent Generalized anxiety disorder Graves disease Herpesviral infection Microscopic colitis Mixed hyperlipidemia Osteopenia after menopause Postmenopausal hormone replacement therapy Primary osteoarthritis involving multiple joints Recurrent UTI Rosacea Scoliosis Surgical History History of tonsillectomy Status post laparoscopic supracervical hysterectomy Family History Brother Mental health problem Alcoholic Cancer Cirrhosis Father Alcoholic Diabetes mellitus Cirrhosis Mother Mental health problem Alcoholic Sister Cancer Social History Smoking Status: Never smoker Smoking Status: Never smoker alcohol intake frequency: holidays/special occasions only Substance Use Type: does not use Exam Narrative Exam Narrative: GENERAL: in no distress, not toxic not dyspneic HEAD: Normocephalic. EYES: Pupils equal round EXTREMITIES: No gross deformities. Examination left ankle. No bleeding at original site from this morning. Foot warm soft and pink strong pedal pulse. NEURO: AOx4. SKIN: Warm and dry PSYCH: Not anxious, is cooperative Initial Vital Signs Initial Vital Signs: Vital Signs Temperature 97.4 F L 02/27/23 14:03 Pulse Rate 95 H 02/27/23 14:03 Respiratory Rate 14 02/27/23 14:03 Blood Pressure 123/106 H 02/27/23 14:03 Pulse Oximetry 99 02/27/23 14:03 Oxygen Delivery Method Room Air 02/27/23 14:03 Course Vital Signs Vital signs: Vital Signs - 8 hr 02/27/23 14:03 Temperature 97.4 F L Pulse Rate 95 H Respiratory Rate 14 Blood Pressure 123/106 H Pulse Oximetry 99 Oxygen Delivery Method Room Air MDM - Skin/Abscess/Foreign Bdy MDM Narrative Medical decision making narrative: Patient here this morning, I saw patient for spontaneous bleed of a small vein in the left medial ankle area. I was able to attain hemostasis with lidocaine with epinephrine and direct pressure. Patient returned home and it started bleeding again. She returns here with soaked Kerlix dressing that I would placed on. She did reinforce with Coban. It is not bleeding now. I took down the dressing. No oozing or bleeding from the ankle area. I add patient walk up and down the hallway, return back to the room, still no bleeding. After history and exam observe here for return of bleeding. No labs indicated at this time. MDM CC: Re-evaluation of venous bleed Complicating co-morbidities: None Data collected from: Patient Medical records reviewed: I saw patient here this morning Differential considered: Includes but not limited to varicose veins/venous bleed Exam documented above, pertinent findings include: Currently no bleeding Treatments: Redressing with Coban. Foot is warm soft and pink. Re-evaluations: 4 p.m.. Patient has been walking here, no bleeding. Loose Coban and 4 x 4 placed for dressing. Foot is warm soft and pink with strong pedal pulse after Coban application. Return precautions reviewed with her. She desires discharge home. Discussion: Appropriate for discharge home. Exam is reassuring. Patient has no bleeding here. Her good dressing application at home stop the bleeding prior to arrival. It did soak the dressing that I had placed on her from previous visit. However no more bleeding during course of stay on this visit. Diagnosis: Wound re-evaluation Discharge Plan Departure Patient Disposition: Home Clinical Impression: Encounter for wound re-check Instructions: DI for Wound Infection Activity Restrictions/Additional Instructions: Please use provided dressing for the next 3 hours. May start loosening this dressing and replaced with looser dressing. Return if bleeding restarts. Please do apply pressure as you did before to try to stop the bleeding but if no improvement then return here. Prescriptions: No Action oxybutynin chloride 10 mg tablet extended release 24hr See Rx Instructions .ROUTE .COMPLEX Qty: 90 2RF Dose Instruction: TAKE 1 TABLET BY MOUTH EVERY DAY Rx Instructions: TAKE 1 TABLET BY MOUTH EVERY DAY levothyroxine 112 mcg tablet 112 mcg PO DAILY Qty: 90 3RF omeprazole 20 mg capsule,delayed release(DR/EC) 20 mg PO BID Qty: 180 3RF celecoxib 200 mg capsule 200 mg PO DAILY bupropion HCl 150 mg tablet sustained-release 12 hr 150 mg PO QAM Qty: 90 3RF budesonide 3 mg capsule,delayed,extend.release 3 mg PO DAILY estradiol 0.5 mg tablet See Rx Instructions .ROUTE .COMPLEX Qty: 90 4RF Dose Instruction: TAKE 1 TABLET BY MOUTH EVERY DAY FOR HORMONE REPLACEMENT Rx Instructions: TAKE 1 TABLET BY MOUTH EVERY DAY FOR HORMONE REPLACEMENT acyclovir 400 mg tablet 400 mg PO BID rosuvastatin 5 mg tablet 5 mg PO DAILY venlafaxine 150 mg capsule,extended release 24hr 150 mg PO DAILY mycophenolate sodium 360 mg tablet,delayed release (DR/EC) 360 mg PO Q12H tramadol 50 mg tablet 50 mg PO DAILY PRN multivitamin Tablet 1 tab PO DAILY Referrals: Abdiel Kang MD [Primary Care Provider] - Stand Alone Forms: Patient Portal/API
== END 2023-02-27 16:12 | disposition home or self-care (01) ==
PROVIDERS: Emergency Provider Emergency Medicine; PCP Internal Medicine
DX: Z48.00 Encounter for change or removal of nonsurgical wound dressing (principal)
CPT/HCPCS: 99281

== ENCOUNTER → 2023-03-01 12:28 | Outpatient (CLI) | payer OTHER, SELFPAY ==
[2023-03-01 12:53] LABS: Hematocrit 32.9 % (36-46); Hemoglobin 11.4 g/dL (12.0-16.0); Mean Corpuscular HGB Conc 34.6 % (30-36); Mean Corpuscular Hemoglobin 34.8 PG (26-34); Mean Corpuscular Volume 100.8 fL (80-100); Platelet Count 211 X10^3/uL (150-400); Red Blood Cell Count 3.27 X10^6/uL (4.0-5.2); Red Cell Distribution Width 13.2 % (11.6-14.8); White Blood Cell Count 5.9 X10^3/uL (4.5-11.0)
[2023-03-01 13:13] LABS: Alanine Aminotransferase 25 IU/L (<35); Albumin 3.9 g/dL (3.5-5.0); Albumin Globulin Ratio 1.6 (1.0-2.8); Alkaline Phosphatase 72 U/L (38-126); BUN Creatinine Ratio 22.9 (6-22); Bilirubin Total 0.3 mg/dL (0.2-1.3); Blood Urea Nitrogen 22 mg/dL (7-17); Carbon Dioxide 27 mmol/L (22-32); Chloride 102 mmol/L (98-107); Estimated Glomerular Filt Rate > 60 mL/min (>60); Globulin 2.5 g/dL (1.7-4.1); Glucose 108 mg/dL (80-110); HEMOLYSIS < 15 (0-50); Potassium 3.9 mmol/L (3.4-5.1); Sodium 137 mmol/L (137-145); Total Protein 6.4 g/dL (6.3-8.2)
[2023-03-01 13:40] LABS: TSH w/ Reflex to FT4 7.27 uIU/mL (0.47-4.68)
[2023-03-01 15:01] LABS: Free T4, Direct Thyroxine 1.24 ng/dL (0.78-2.19)
[2023-03-01 16:01] LABS: Aspartate Aminotransferase 30 IU/L (14-36)
== END ==
PROVIDERS: PCP Internal Medicine; Referring Provider Internal Medicine; Visit Provider Internal Medicine
DX: E03.9 Hypothyroidism, unspecified (principal); K75.4 Autoimmune hepatitis
CPT/HCPCS: 36415; 80053; 84439; 84443; 85027

== ENCOUNTER 2023-05-02 22:57 | Emergency (ER) | payer OTHER, SELFPAY ==
--- NOTE | 2023-05-02 23:05 | DI.RAD.S_ITS ---
PROCEDURE: XR ANKLE LT MIN 3V INDICATIONS: infection, osteo? TECHNIQUE: 3 views of the ankle were acquired. COMPARISON: None. FINDINGS: Bones: No displaced fracture. No dislocation. The ankle mortise is maintained. Soft tissues: Soft tissue swelling is present. IMPRESSION: No acute radiographic abnormality. Consider MRI to further evaluate for osteomyelitis. Dictated by: Basilio Li M.D. on 05/02/2023 at 23:45 Approved by: Basilio Li M.D. on 05/02/2023 at 23:45
[2023-05-02 23:08] VITALS: BP 183/83; PULSE 101; RESP 16; TEMP 36.6; O2SAT 100; BMI 22.2
--- NOTE | 2023-05-02 23:20 | ED.WOUNDLAC ---
HPI - Wound/Laceration General Chief Complaint: Wound/Laceration Stated Complaint: wound on left ankle Time Seen by Provider: 05/02/23 23:05 Source: patient Mode of arrival: Ambulatory History of Present Illness HPI narrative: 73-year-old female nonsmoker with history of hypothyroid and hyperlipidemia presents with a chief complaint of increasing pain and redness to a known wound on her left medial ankle. She had been seen and evaluated here in the emergency department on February 27 when she had bleeding from a varicose vein. In the aftermath she developed some signs of infection and was placed on a week of Keflex 500 mg t.i.d. and showed rapid and tremendous improvement. She had been doing fine unwell but over the past week if not more she is noticed some increasing pain and a recurrence of what appears to be an infected wound. She has a consultation and referral in place for wound care but has yet to see them. She denies any systemic complaints such as fever, chills nor nausea or vomiting. She is not dizzy nor weak or lightheaded. She does have increased pain with ambulation and improvement with rest. Related Data Home Medications Medication Instructions Recorded Confirmed budesonide 3 mg 3 mg PO DAILY 04/16/19 03/08/23 capsule,delayed,extended release acyclovir 400 mg tablet 400 mg PO BID 08/31/22 03/08/23 multivitamin 1 tab PO DAILY 08/31/22 03/08/23 mycophenolate sodium 360 mg 360 mg PO Q12H 08/31/22 03/08/23 tablet,delayed release rosuvastatin 5 mg tablet 5 mg PO DAILY 08/31/22 03/08/23 tramadol 50 mg tablet 50 mg PO DAILY PRN 08/31/22 03/08/23 venlafaxine 150 mg 150 mg PO DAILY 08/31/22 03/08/23 capsule,extended release 24 hr celecoxib 200 mg capsule 200 mg PO DAILY 11/02/22 03/08/23 clobetasol 0.05 % topical ointment 1 applic topical BID 03/08/23 03/08/23 Previous Rx's Medication Instructions Recorded estradiol 0.5 mg tablet See Rx Instructions .Route 07/28/22 .COMPLEX #90 tabs levothyroxine 112 mcg tablet 112 mcg PO DAILY #90 tabs 08/18/22 omeprazole 20 mg capsule,delayed 20 mg PO BID #180 caps 09/21/22 release bupropion HCl 150 mg tablet,12 hr 150 mg PO QAM #90 ea 11/02/22 sustained-release oxybutynin chloride 10 mg 10 mg PO DAILY Overactive bladder 03/07/23 tablet,extended release 24 hr #90 tabs cephalexin 500 mg capsule 500 mg PO TID #21 caps 03/08/23 cephalexin 500 mg capsule 500 mg PO Q6H 10 days #40 caps 05/02/23 Allergies Allergy/AdvReac Type Severity Reaction Status Date / Time Penicillins Allergy Mild RASH Verified 03/08/23 16:25 Review of Systems Review of Systems Narrative: GENERAL: Denies chills, fatigue, malaise, fever, sweats. HEENT: Denies sinus pain, ear pain, sore throat, difficulty swallowing, dizziness. RESPIRATORY: Denies dyspnea, cough, wheezing, hemoptysis, sputum. CARDIOVASCULAR: Denies chest pain, palpitations, orthopnea, edema, GASTROINTESTINAL: Denies nausea, vomiting, abdominal pain, diarrhea, constipation, melena. : Denies dysuria, frequency, incontinence, hematuria, urinary retention. MUSCULOSKELETAL: denies weakness, joint pain, or bony pain SKIN: see HPI NEUROLOGIC: Denies weakness, headache, numbness, change in speech, confusion, seizures, incoordination. PSYCHIATRIC: No concerning psychosocial issues. 12 point review of systems is negative except for those stated above Patient History Medical History Acquired hypothyroidism Cervical myelopathy with cervical radiculopathy Cervical radiculopathy, chronic Cervical spine disease Chronic back pain Cystocele Depression, major, recurrent Generalized anxiety disorder Graves disease Herpesviral infection Microscopic colitis Mixed hyperlipidemia Osteopenia after menopause Postmenopausal hormone replacement therapy Primary osteoarthritis involving multiple joints Recurrent UTI Rosacea Scoliosis Surgical History History of tonsillectomy Status post laparoscopic supracervical hysterectomy Family History Brother Mental health problem Alcoholic Cancer Cirrhosis Father Alcoholic Diabetes mellitus Cirrhosis Mother Mental health problem Alcoholic Sister Cancer Social History Smoking Status: Never smoker Smoking Status: Never smoker alcohol intake frequency: holidays/special occasions only Substance Use Type: does not use Exam Narrative Exam Narrative: GEN: AOx3 and in mild distress EYES: Pupils are equal, round, and reactive to light and accommodation. Extraoccular muscles are intact bilaterally. There is no subconjunctival hemorrhage or exudate. CHEST: Lungs are clear to auscultation bilaterally and free of wheezes, rales, or rhonchi. Heart rate is regular rhythm, there are no murmurs, clicks, rubs, or gallops. There is no chest wall tenderness. ABD: Abdomen is soft and nontender. There is no guarding or rebound. Bowel sounds are normal in all 4 quadrants. There is no mass or organomegaly. EXT: 1.5-2 cm infected wound posterior medial left ankle with very minimal surrounding erythema, no induration, fluctuance or lymphangitis. No crepitance or other discoloration. Compartments soft. Sensation intact. Otherwise Full painless ROM of all extremities with no loss of sensation or strength. The wound is cultured prior to being dressed by nursing SKIN: Warm, pink, and dry. No erythema or rash Initial Vital Signs Initial Vital Signs: Vital Signs Temperature 97.8 F 05/02/23 23:08 Pulse Rate 101 H 05/02/23 23:08 Respiratory Rate 16 05/02/23 23:08 Blood Pressure 183/83 H 05/02/23 23:08 Pulse Oximetry 100 05/02/23 23:08 Oxygen Delivery Method Room Air 05/02/23 23:08 Course Orders Ordered: ED Orders 05/02/23 23:03 Wound Culture and Gram Stain Stat 05/02/23 23:05 XR ankle LT min 3V Stat Discontinued Medications Cefazolin Sodium (Cephalexin 250 Mg Cap Prepack) 1 bottle MISC SEEINSTR ONE Stop: 05/02/23 23:16 Last Admin: 05/02/23 23:46 Dose: 1 bottle Vital Signs Vital signs: Vital Signs - 8 hr 05/02/23 23:08 Temperature 97.8 F Pulse Rate 101 H Respiratory Rate 16 Blood Pressure 183/83 H Pulse Oximetry 100 Oxygen Delivery Method Room Air MDM - Wound/Laceration MDM Narrative Medical decision making narrative: [73] year old patient presents with recurrence of an infected left medial ankle wound Multiple etiologies for patient's symptoms considered including, but not limited to: [Cellulitis versus abscess versus deep space infection versus osteomyelitis versus other] Prior Charts reviewed in our EMR Primary Historian: patient Imaging reviewed: Left ankle x-ray demonstrates no gas or obvious osteo Patient's history and physical exam are reassuring, her wound is becoming a bit irritated and demonstrating signs of infection. She is no systemic complaints, no signs of sepsis, no crepitance or evidence of deep space infection. Imaging without obvious subcu gas or evidence of osteomyelitis. We discussed her rapid improvement and tolerance of Keflex a few months ago and agree that it is most appropriate to consider this treatment again rather than switching antibiotic families. She understands that if the culture demonstrates the need we could alter this. She has an appointment with wound care coming. Sent home with a prepack and prescription sent to her pharmacy of choice Patient's symptoms improved over duration of stay with above-stated therapies. Findings and discharge diagnosis discussed with patient/family followed by verbalization of understanding Return precautions discussed with patient/family whom verbalize understanding of diagnosis and plan Discharge Plan Departure Patient Disposition: Home Clinical Impression: Cellulitis of left ankle Instructions: DI for Wound Infection Activity Restrictions/Additional Instructions: *You have been diagnosed with [ left ankle wound infection with cellulitis. As we discussed your history and physical exam are otherwise reassuring and there is no evidence of a deep infection or abscess that would require a more specific or immediate intervention.] *What to do: *Please continue to take your regular medications as directed. [x ] New medication prescriptions sent to your pharmacy: [ [facility]] [ ] New medication written as a paper prescription [ ] No new medications given *Please follow up with your primary care provider in 2-3 days, call for an appointment. Let them know you were seen in the Emergency Department and that we ask that you be seen in follow up. We will electronically transmit a record of today's note if your PCP is in our system *Please follow up with Dr. Bowen as previously discussed with Dr. Kang *Return to Emergency Department if you should have any new, worsening or concerning symptoms, such as [fever greater than 101 F, shaking chills, worsening pain, persistent vomiting or other bothersome symptoms] Prescriptions: New cephalexin 500 mg capsule 500 mg PO Q6H 10 Days Qty: 40 0RF No Action levothyroxine 112 mcg tablet 112 mcg PO DAILY Qty: 90 3RF omeprazole 20 mg capsule,delayed release(DR/EC) 20 mg PO BID Qty: 180 3RF oxybutynin chloride 10 mg tablet extended release 24hr 10 mg PO DAILY Qty: 90 3RF celecoxib 200 mg capsule 200 mg PO DAILY bupropion HCl 150 mg tablet sustained-release 12 hr 150 mg PO QAM Qty: 90 3RF clobetasol 0.05 % ointment 1 applic topical BID cephalexin 500 mg capsule 500 mg PO TID Qty: 21 1RF budesonide 3 mg capsule,delayed,extend.release 3 mg PO DAILY estradiol 0.5 mg tablet See Rx Instructions .ROUTE .COMPLEX Qty: 90 4RF Dose Instruction: TAKE 1 TABLET BY MOUTH EVERY DAY FOR HORMONE REPLACEMENT Rx Instructions: TAKE 1 TABLET BY MOUTH EVERY DAY FOR HORMONE REPLACEMENT acyclovir 400 mg tablet 400 mg PO BID rosuvastatin 5 mg tablet 5 mg PO DAILY venlafaxine 150 mg capsule,extended release 24hr 150 mg PO DAILY mycophenolate sodium 360 mg tablet,delayed release (DR/EC) 360 mg PO Q12H tramadol 50 mg tablet 50 mg PO DAILY PRN multivitamin Tablet 1 tab PO DAILY Referrals: Abdiel Kang MD [Primary Care Provider] - Francisco Javier Bowen MD [Non-Staff] - Stand Alone Forms: Patient Portal/API
[2023-05-02] MEDS: cephALEXin 250 MG CAP PREPACK 1 BOTTLE MISC (23:46)
[2023-05-02 23:54] VITALS: BP 157/85; PULSE 90; RESP 16; O2SAT 98
== END 2023-05-02 23:55 | disposition home or self-care (01) ==
PROVIDERS: Emergency Provider Emergency Medicine; PCP Internal Medicine
DX: L03.116 Cellulitis of left lower limb (principal); Z79.899 Other long term (current) drug therapy
CPT/HCPCS: 73610; 87070; 87075; 87077; 87205; 99281; 99283

== ENCOUNTER → 2023-05-21 14:11 | Outpatient (CLI) | payer OTHER, SELFPAY | PROVIDERS: PCP Internal Medicine; Referring Provider Internal Medicine; Visit Provider Surgery | DX: L08.9 Local infection of the skin and subcutaneous tissue, unspecified (principal); I83.899 Varicose veins of unspecified lower extremity with other complications; E03.9 Hypothyroidism, unspecified | CPT/HCPCS: 11042; 36415; 84443; 85027; 87070; 87075; 87205; 99203; 99213 ==

== ENCOUNTER → 2023-05-21 14:29 | Outpatient (CLI) | payer OTHER, SELFPAY ==
[2023-05-21 16:12] LABS: Hematocrit 37.5 % (36-46); Hemoglobin 12.9 g/dL (12.0-16.0); Mean Corpuscular HGB Conc 34.3 % (30-36); Mean Corpuscular Hemoglobin 33.7 PG (26-34); Mean Corpuscular Volume 98.3 fL (80-100); Platelet Count 227 X10^3/uL (150-400); Red Blood Cell Count 3.82 X10^6/uL (4.0-5.2); Red Cell Distribution Width 12.9 % (11.6-14.8); White Blood Cell Count 5.3 X10^3/uL (4.5-11.0)
[2023-05-21 17:03] LABS: TSH w/ Reflex to FT4 1.77 uIU/mL (0.47-4.68)
== END ==
PROVIDERS: PCP Internal Medicine; Referring Provider Internal Medicine; Visit Provider Internal Medicine
DX: I83.899 Varicose veins of unspecified lower extremity with other complications (principal); E03.9 Hypothyroidism, unspecified
CPT/HCPCS: 36415; 84443; 85027

== ENCOUNTER → 2023-05-28 13:58 | Outpatient (CLI) | payer OTHER, SELFPAY | PROVIDERS: PCP Internal Medicine; Referring Provider Internal Medicine; Visit Provider Surgery | DX: I87.2 Venous insufficiency (chronic) (peripheral) (principal); L97.322 Non-pressure chronic ulcer of left ankle with fat layer exposed; L98.8 Other specified disorders of the skin and subcutaneous tissue | CPT/HCPCS: 11042 ==

== ENCOUNTER → 2023-06-07 14:07 | Outpatient (CLI) | payer OTHER, SELFPAY | PROVIDERS: PCP Internal Medicine; Referring Provider Internal Medicine; Visit Provider Surgery | DX: I87.2 Venous insufficiency (chronic) (peripheral) (principal); L97.322 Non-pressure chronic ulcer of left ankle with fat layer exposed | CPT/HCPCS: 11042; 87070; 87075; 87077; 87147; 87186; 87205; 99213 ==

== ENCOUNTER → 2023-06-14 14:20 | Outpatient (CLI) | payer OTHER, SELFPAY | PROVIDERS: PCP Internal Medicine; Referring Provider Internal Medicine; Visit Provider Surgery | DX: I87.2 Venous insufficiency (chronic) (peripheral) (principal); L97.322 Non-pressure chronic ulcer of left ankle with fat layer exposed; R60.0 Localized edema; L53.9 Erythematous condition, unspecified | CPT/HCPCS: 11042 ==

== ENCOUNTER → 2023-06-28 15:01 | Outpatient (CLI) | payer OTHER, SELFPAY | PROVIDERS: PCP Internal Medicine; Referring Provider Internal Medicine; Visit Provider Surgery | DX: I87.2 Venous insufficiency (chronic) (peripheral) (principal); L97.322 Non-pressure chronic ulcer of left ankle with fat layer exposed; R60.0 Localized edema; L53.9 Erythematous condition, unspecified | CPT/HCPCS: 11042; 99213 ==

== ENCOUNTER → 2023-07-04 15:37 | Outpatient (CLI) | payer OTHER, SELFPAY | LOC: WC 15:37 | PROVIDERS: PCP Internal Medicine; Referring Provider Internal Medicine; Visit Provider Surgery ==

== ENCOUNTER → 2023-07-10 18:02 | Outpatient (CLI) | payer OTHER, SELFPAY ==
--- NOTE | 2023-07-10 18:05 | DI.MRI.S_ITS ---
PROCEDURE: MR ANKLE LT WO/W CON INDICATIONS: non-healing ulcer to left medial ankle TECHNIQUE: Noncontrast sagittal T1 spin echo and T2 fast spin echo with fat saturation, axial proton density fast spin echo and T2 fast spin echo with fat saturation, axial T1 spin echo with fat saturation, coronal T1 spin echo and T2 fast spin echo with fat saturation through the ankle/hindfoot. Post-contrast axial, coronal, and sagittal T1 spin echo with fat saturation through the ankle/hindfoot. COMPARISON: None. FINDINGS: Image quality: Excellent. Bones and joints: No suspicious osseous enhancement. [id number] midfoot and hindfoot joint osteoarthritic changes are seen with joint space narrowing, subchondral sclerosis and marginal osteophyte formation. No fracture or dislocation. Small tibiotalar joint effusion is seen, no gross loose bodies. Osteochondral injury involving posterior medial weight-bearing portion of talar dome is seen measures up to 4 millimeter in size. Small plantar and dorsal calcaneal enthesophytes are also seen. Medial structures: Ulceration over medial aspect of ankle/distal lower leg is seen with significant adjacent soft tissue swelling and edema and mild contrast enhancement consistent with cellulitis. No discrete drainable abscess collection is noted. The posterior tibialis tendon is mildly thickened with small amount of fluid distending tendon sheath. The flexor digitorum longus, and flexor hallucis longus tendons are intact. The posterior tibial neurovascular bundle appears normal within the tarsal tunnel, without extrinsic mass effect. The deltoid ligament and spring ligament are thickened. Lateral structures: The anterior talofibular, calcaneofibular, and posterior talofibular ligaments appear mildly thickened. More superiorly, the anterior and posterior tibiofibular ligaments appear intact, as is the intermalleolar ligament. The tibiofibular syndesmosis is normal in width at 2 mm or less. The peroneus longus and brevis tendons demonstrate normal location and morphology. Adjacent bony peroneal tubercle and retrotrochlear prominence are normal in size. The sinus tarsi demonstrates normal fatty signal, without edema, fibrosis, or cyst formation. Visualized sinus tarsi components (cervical ligament, interosseous talocalcaneal ligament, roots of the inferior extensor retinaculum) appear normal. The calcaneonavicular and calcaneocuboid components of the bifurcate ligament appear intact. The dorsal calcaneocuboid ligament appears intact. Anterior structures: The tibialis anterior, extensor hallucis longus, and extensor digitorum longus tendons appear intact. The dorsal talonavicular ligament appears intact. Posterior and plantar structures: Mild diffuse thickening of the Achilles tendon extending to its posterior calcaneal insertion is seen. Pre Achilles fat edema is also noted. Medial and lateral bands of the plantar fascia are of normal thickness. No abductor digiti quinti muscle atrophy to suggest Ramos neuropathy. IMPRESSION: 1. Ulceration over medial aspect of distal lower leg/medial malleolus with extensive cellulitis in distal lower leg and around hindfoot. No discrete drainable abscess collection. 2. No evidence of osteomyelitis. No abnormal intraosseous enhancement. [id number] midfoot and hindfoot joint osteoarthritis. Tiny osteochondral injury involving posterior medial corner of talar dome weight-bearing portion. Small joint effusion, no loose bodies. 3. Low-grade tenosynovitis involving distal posterior tibialis tendon at the level of talus and talonavicular joint. 4. Low-grade medial ankle ligament sprain. Low-grade sprain also seen involving anterior and posterior talofibular ligaments and calcaneofibular ligament. 5. Mild distal Achilles tendinosis. No Achilles tendon rupture. Dictated by: Randall Mortensen M.D. on 07/11/2023 at 16:30 Approved by: Randall Mortensen M.D. on 07/11/2023 at 20:15
== END ==
PROVIDERS: PCP Internal Medicine; Referring Provider Surgery; Visit Provider Surgery
DX: S91.002A Unspecified open wound, left ankle, initial encounter (principal); L97.329 Non-pressure chronic ulcer of left ankle with unspecified severity; L03.116 Cellulitis of left lower limb; M19.072 Primary osteoarthritis, left ankle and foot; M25.475 Effusion, left foot; M65.872 Other synovitis and tenosynovitis, left ankle and foot
CPT/HCPCS: 73723; A9579

== ENCOUNTER → 2023-07-16 14:23 | Outpatient (CLI) | payer OTHER, SELFPAY | PROVIDERS: PCP Internal Medicine; Referring Provider Internal Medicine; Visit Provider Surgery | DX: I87.2 Venous insufficiency (chronic) (peripheral) (principal); L97.322 Non-pressure chronic ulcer of left ankle with fat layer exposed; R60.0 Localized edema; L53.9 Erythematous condition, unspecified | CPT/HCPCS: 11042 ==

== ENCOUNTER → 2023-07-31 15:00 | Outpatient (CLI) | payer OTHER, SELFPAY | LOC: WC 15:01 | PROVIDERS: PCP Internal Medicine; Referring Provider Internal Medicine; Visit Provider Surgery | DX: I87.2 Venous insufficiency (chronic) (peripheral) (principal); L97.322 Non-pressure chronic ulcer of left ankle with fat layer exposed; R60.0 Localized edema; L53.9 Erythematous condition, unspecified | CPT/HCPCS: 11042; 99213 ==

== ENCOUNTER → 2023-08-13 | Outpatient (CLI) | payer OTHER, SELFPAY | LOC: WC 13:53 | PROVIDERS: PCP Internal Medicine; Referring Provider Internal Medicine; Visit Provider Physician Assistant ==

== ENCOUNTER → 2023-08-21 14:32 | Outpatient (CLI) | payer OTHER, SELFPAY | LOC: WC 14:32 | PROVIDERS: PCP Internal Medicine; Referring Provider Internal Medicine; Visit Provider Surgery | DX: L97.322 Non-pressure chronic ulcer of left ankle with fat layer exposed (principal); I87.2 Venous insufficiency (chronic) (peripheral); R60.0 Localized edema; L53.9 Erythematous condition, unspecified; Z79.2 Long term (current) use of antibiotics | CPT/HCPCS: 11042; 99213 ==

== ENCOUNTER → 2023-08-28 14:35 | Outpatient (CLI) | payer OTHER, SELFPAY | LOC: WC 14:35 | PROVIDERS: PCP Internal Medicine; Referring Provider Internal Medicine; Visit Provider Surgery | DX: L97.322 Non-pressure chronic ulcer of left ankle with fat layer exposed (principal); I87.2 Venous insufficiency (chronic) (peripheral); R60.0 Localized edema; L53.9 Erythematous condition, unspecified | CPT/HCPCS: 11042; 87070; 87075; 87147; 87205 ==

== ENCOUNTER → 2023-09-11 14:52 | Outpatient (CLI) | payer OTHER, SELFPAY | PROVIDERS: PCP Internal Medicine; Referring Provider Internal Medicine; Visit Provider Surgery | DX: L97.322 Non-pressure chronic ulcer of left ankle with fat layer exposed (principal); I87.2 Venous insufficiency (chronic) (peripheral); R60.0 Localized edema; L53.9 Erythematous condition, unspecified; R06.09 Other forms of dyspnea | CPT/HCPCS: 11042; 99212; 99213 ==

== ENCOUNTER → 2023-09-26 14:54 | Outpatient (CLI) | payer OTHER, SELFPAY | LOC: WC 14:59 | PROVIDERS: PCP Internal Medicine; Referring Provider Internal Medicine; Visit Provider Surgery | DX: L97.322 Non-pressure chronic ulcer of left ankle with fat layer exposed (principal); I87.2 Venous insufficiency (chronic) (peripheral); R60.0 Localized edema; L53.9 Erythematous condition, unspecified | CPT/HCPCS: 11042 ==

== ENCOUNTER → 2023-10-03 14:00 | Outpatient (CLI) | payer OTHER, SELFPAY | LOC: WC 14:01 | PROVIDERS: PCP Internal Medicine; Referring Provider Internal Medicine; Visit Provider Nurse Practitioner Family | DX: S91.002A Unspecified open wound, left ankle, initial encounter (principal); L08.89 Other specified local infections of the skin and subcutaneous tissue; R60.0 Localized edema; L53.9 Erythematous condition, unspecified | CPT/HCPCS: 99212 ==

== ENCOUNTER → 2023-10-10 17:16 | Outpatient (CLI) | payer OTHER, SELFPAY ==
--- NOTE | 2023-10-10 | DI.MRI.S_ITS ---
PROCEDURE: MR ANKLE LT WO/W CON INDICATIONS: Local infection of the skin subcutaneous tissue TECHNIQUE: Noncontrast sagittal T1 spin echo and T2 fast spin echo with fat saturation, axial proton density fast spin echo and T2 fast spin echo with fat saturation, axial T1 spin echo with fat saturation, coronal T1 spin echo and T2 fast spin echo with fat saturation through the ankle/hindfoot. Post-contrast axial, coronal, and sagittal T1 spin echo with fat saturation through the ankle/hindfoot. COMPARISON: [facility], , MR ANKLE LT WO/W CON, 07/10/2023, 18:14. FINDINGS: Image quality: Excellent. Bones and joints: Fiducial marker is placed over posterior medial aspect of ankle joint. There is no gross marrow edema or area of abnormal intraosseous enhancement. [id number] midfoot and hindfoot joint osteoarthritic changes are seen with joint space narrowing, subchondral sclerosis and marginal osteophyte formation. No bony erosive changes are seen. No hindfoot coalitions. Tiny osteochondral injury involving posterior medial corner of talar dome weight-bearing portion is again seen measures 2-3 mm in size. Small amount of tibiotalar joint effusion is seen, no gross loose bodies. Medial structures: Ulceration over posterior medial aspect of ankle is seen with surrounding soft tissue edema and swelling. Heterogeneous contrast enhancement is noted in this area. No peripheral enhancing drainable fluid collection is identified. No enhancing soft tissue mass. The posterior tibialis tendon is mildly thickened with small amount of fluid distending tendon sheath suggestive of low-grade tenosynovitis. The flexor digitorum longus, and flexor hallucis longus tendons are intact. The posterior tibial neurovascular bundle appears normal within the tarsal tunnel, without extrinsic mass effect. The deltoid ligament and spring ligament are intact. Lateral structures: The anterior talofibular, calcaneofibular, and posterior talofibular ligaments appear mildly thickened. More superiorly, the anterior and posterior tibiofibular ligaments appear intact, as is the intermalleolar ligament. The tibiofibular syndesmosis is normal in width at 2 mm or less. The peroneus longus and brevis tendons are thickened at the level of lateral malleolus tip extending to the level of calcaneocuboid joint with mild surrounding edema. Adjacent bony peroneal tubercle and retrotrochlear prominence are normal in size. The sinus tarsi demonstrates normal fatty signal, without edema, fibrosis, or cyst formation. Visualized sinus tarsi components (cervical ligament, interosseous talocalcaneal ligament, roots of the inferior extensor retinaculum) appear normal. The calcaneonavicular and calcaneocuboid components of the bifurcate ligament appear intact. The dorsal calcaneocuboid ligament appears intact. Anterior structures: The tibialis anterior, extensor hallucis longus, and extensor digitorum longus tendons appear intact. The dorsal talonavicular ligament appears intact. Posterior and plantar structures: Achilles tendon is intact. Medial and lateral bands of the plantar fascia are of normal thickness. No abductor digiti quinti muscle atrophy to suggest Ramos neuropathy. IMPRESSION: 1. Ulceration again seen over posterior medial aspect of distal lower leg/ankle with adjacent soft tissue cellulitis. No discrete drainable abscess collection. 2. No evidence of osteomyelitis. No abnormal intraosseous enhancement. [id number] midfoot and hindfoot joint osteoarthritis. Stable tiny osteochondral injury involving posterior medial corner of talar dome. Small joint effusion, no loose bodies. No fracture or dislocation. 3. Low-grade tenosynovitis involving distal posterior tibialis tendon. 4. Low-grade sprain involving lateral ankle ligaments as above. 5. 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 Dictated by: Randall Mortensen M.D. on 10/11/2023 at 11:01 Approved by: Randall Mortensen M.D. on 10/11/2023 at 11:13
== END ==
LOC: MRI 17:17
PROVIDERS: PCP Internal Medicine; Referring Provider Internal Medicine Infectious Disease; Visit Provider Internal Medicine Infectious Disease
DX: T14.8XXA Other injury of unspecified body region, initial encounter (principal); L08.9 Local infection of the skin and subcutaneous tissue, unspecified; L97.329 Non-pressure chronic ulcer of left ankle with unspecified severity; L03.116 Cellulitis of left lower limb; M19.072 Primary osteoarthritis, left ankle and foot; M65.872 Other synovitis and tenosynovitis, left ankle and foot; M25.472 Effusion, left ankle; S93.492A Sprain of other ligament of left ankle, initial encounter; X58.XXXA Exposure to other specified factors, initial encounter
CPT/HCPCS: 73723; A9579

== ENCOUNTER → 2023-10-11 14:36 | Outpatient (CLI) | payer OTHER, SELFPAY | LOC: WC 14:43 | PROVIDERS: PCP Internal Medicine; Referring Provider Internal Medicine; Visit Provider Surgery ==

== ENCOUNTER → 2023-10-15 15:05 | Outpatient (CLI) | payer OTHER, SELFPAY | PROVIDERS: PCP Internal Medicine; Referring Provider Internal Medicine; Visit Provider Surgery | DX: L97.322 Non-pressure chronic ulcer of left ankle with fat layer exposed (principal); I87.2 Venous insufficiency (chronic) (peripheral); R60.0 Localized edema; L53.9 Erythematous condition, unspecified | CPT/HCPCS: 11042; 99213 ==

== ENCOUNTER → 2023-10-22 14:26 | Outpatient (CLI) | payer OTHER, SELFPAY | LOC: WC 14:27 | PROVIDERS: PCP Internal Medicine; Referring Provider Internal Medicine; Visit Provider Surgery | DX: L97.322 Non-pressure chronic ulcer of left ankle with fat layer exposed (principal); I87.2 Venous insufficiency (chronic) (peripheral); R60.0 Localized edema; L53.9 Erythematous condition, unspecified | CPT/HCPCS: 11042; 87070; 87075; 87077; 87205 ==

== ENCOUNTER → 2023-10-30 13:52 | Outpatient (CLI) | payer OTHER, SELFPAY | LOC: WC 13:53 | PROVIDERS: PCP Internal Medicine; Referring Provider Internal Medicine; Visit Provider Surgery | DX: L97.322 Non-pressure chronic ulcer of left ankle with fat layer exposed (principal); I87.2 Venous insufficiency (chronic) (peripheral); R60.0 Localized edema; L53.9 Erythematous condition, unspecified; Z79.2 Long term (current) use of antibiotics | CPT/HCPCS: 11042 ==

== ENCOUNTER → 2023-11-07 14:57 | Outpatient (CLI) | payer OTHER, SELFPAY | LOC: WC 14:58 | PROVIDERS: PCP Internal Medicine; Referring Provider Internal Medicine; Visit Provider Surgery | DX: L97.322 Non-pressure chronic ulcer of left ankle with fat layer exposed (principal); I87.2 Venous insufficiency (chronic) (peripheral); R60.0 Localized edema; L53.9 Erythematous condition, unspecified | CPT/HCPCS: 11042 ==

== ENCOUNTER → 2023-11-14 15:17 | Outpatient (ROUT) | payer OTHER, SELFPAY ==
[2023-11-14 15:26] LABS: Add Manual Diff / Slide Review NO; Basophils Absolute Auto 0 /uL (0-100); Basophils Percent Auto 0.6 % (0-2); Eosinophils Absolute Auto 100 /uL (0-450); Eosinophils Percent Auto 1.9 % (2-4); Hematocrit 36.9 % (36-46); Hemoglobin 12.6 g/dL (12.0-16.0); Lymphocytes Absolute Auto 1700 /uL (1100-4500); Lymphocytes Percent Auto 29.6 % (25-40); Mean Corpuscular Hemoglobin 34.7 PG (26-34); Monocytes Absolute Auto 600 /uL (0-900); Monocytes Percent Auto 10.9 % (3-14); Neutrophils Absolute Auto 3300 /uL (1500-7000); Platelet Count 264 X10^3/uL (150-400); Red Blood Cell Count 3.62 X10^6/uL (4.0-5.2); Red Cell Distribution Width 13.6 % (11.6-14.8); White Blood Cell Count 5.8 X10^3/uL (4.5-11.0)
[2023-11-14 15:40] LABS: Alanine Aminotransferase 24 IU/L (<35); Albumin 4.1 g/dL (3.5-5.0); Albumin Globulin Ratio 1.6 (1.0-2.8); Alkaline Phosphatase 75 U/L (38-126); Aspartate Aminotransferase 34 IU/L (14-36); BUN Creatinine Ratio 34.3 (6-22); Bilirubin Total 0.4 mg/dL (0.2-1.3); Blood Urea Nitrogen 24 mg/dL (7-17); C-Reactive Protein Quant < 0.5 mg/dL (<1.0); Calcium 9.7 mg/dL (8.4-10.2); Carbon Dioxide 27 mmol/L (22-32); Chloride 108 mmol/L (98-107); Estimated Glomerular Filt Rate > 60 mL/min (>60); Globulin 2.6 g/dL (1.7-4.1); Glucose 97 mg/dL (80-110); HEMOLYSIS 19 (0-50); Potassium 4.7 mmol/L (3.4-5.1); Sodium 140 mmol/L (137-145); Total Protein 6.7 g/dL (6.3-8.2)
== END ==
PROVIDERS: PCP Internal Medicine; Visit Provider Internal Medicine Infectious Disease
DX: A49.8 Other bacterial infections of unspecified site (principal); M86.272 Subacute osteomyelitis, left ankle and foot
CPT/HCPCS: 80053; 85025; 86140

== ENCOUNTER → 2023-11-15 14:50 | Outpatient (CLI) | payer OTHER, SELFPAY | LOC: WC 14:50 | PROVIDERS: PCP Internal Medicine; Referring Provider Internal Medicine; Visit Provider Surgery | DX: L97.322 Non-pressure chronic ulcer of left ankle with fat layer exposed (principal); I87.2 Venous insufficiency (chronic) (peripheral); L53.9 Erythematous condition, unspecified; R60.0 Localized edema; Z79.899 Other long term (current) drug therapy | CPT/HCPCS: 11042 ==

== ENCOUNTER → 2023-11-21 17:03 | Outpatient (ROUT) | payer OTHER, SELFPAY ==
[2023-11-21 17:24] LABS: Add Manual Diff / Slide Review NO; Basophils Absolute Auto 100 /uL (0-100); Basophils Percent Auto 0.9 % (0-2); Eosinophils Absolute Auto 100 /uL (0-450); Eosinophils Percent Auto 1.9 % (2-4); Hematocrit 39.9 % (36-46); Hemoglobin 13.3 g/dL (12.0-16.0); Lymphocytes Absolute Auto 1600 /uL (1100-4500); Lymphocytes Percent Auto 29.4 % (25-40); Mean Corpuscular HGB Conc 33.3 % (30-36); Mean Corpuscular Hemoglobin 34.1 PG (26-34); Mean Corpuscular Volume 102.3 fL (80-100); Monocytes Absolute Auto 600 /uL (0-900); Monocytes Percent Auto 11.9 % (3-14); Neutrophils Absolute Auto 3000 /uL (1500-7000); Neutrophils Percent Auto 55.9 % (50-75); Platelet Count 275 X10^3/uL (150-400); Red Cell Distribution Width 13.2 % (11.6-14.8); White Blood Cell Count 5.3 X10^3/uL (4.5-11.0)
[2023-11-21 17:26] LABS: Alanine Aminotransferase 31 IU/L (<35); Albumin 4.4 g/dL (3.5-5.0); Albumin Globulin Ratio 1.6 (1.0-2.8); Alkaline Phosphatase 77 U/L (38-126); Aspartate Aminotransferase 37 IU/L (14-36); BUN Creatinine Ratio 39.1 (6-22); Bilirubin Total 0.4 mg/dL (0.2-1.3); Blood Urea Nitrogen 27 mg/dL (7-17); C-Reactive Protein Quant < 0.5 mg/dL (<1.0); Carbon Dioxide 32 mmol/L (22-32); Chloride 106 mmol/L (98-107); Estimated Glomerular Filt Rate > 60 mL/min (>60); Globulin 2.7 g/dL (1.7-4.1); Glucose 55 mg/dL (80-110); HEMOLYSIS < 15 (0-50); Potassium 4.5 mmol/L (3.4-5.1); Sodium 140 mmol/L (137-145); Total Protein 7.1 g/dL (6.3-8.2)
== END ==
PROVIDERS: Visit Provider Internal Medicine Infectious Disease
DX: A49.8 Other bacterial infections of unspecified site (principal); M86.272 Subacute osteomyelitis, left ankle and foot
CPT/HCPCS: 80053; 85025; 86140

== ENCOUNTER 2023-11-23 15:21 | Emergency (ER) | payer OTHER, SELFPAY ==
[2023-11-23 15:31] VITALS: BP 146/68; PULSE 96; RESP 15; TEMP 36.4; O2SAT 96; BMI 22.4
--- NOTE | 2023-11-23 15:39 | DI.RAD.S_ITS ---
PROCEDURE: XR CHEST FOR PICC 1V INDICATIONS: check PICC placement COMPARISON: None. FINDINGS: PICC was placed by the intravenous therapy team from the right side. Fluoroscopic spot film demonstrates the tip of PICC projecting to the area of upper aspect of the distal SVC. IMPRESSION: Tip of PICC projects to the area of upper aspect of the distal SVC. Dictated by: Jreemy Nelson M.D. on 11/23/2023 at 16:20 Approved by: Jeremy Nelson M.D. on 11/23/2023 at 16:21
--- NOTE | 2023-11-23 15:40 | ED_ITS ---
HPI - Recheck/Abnormal Lab/Rx <Jamie Jones PA-C - Last Filed: 11/23/23 17:19> General Chief Complaint: Recheck/Abnormal Lab/Rx Stated Complaint: pick line bleeding/leak Time Seen by Provider: 11/23/23 15:38 Source: patient Mode of arrival: Ambulatory History of Present Illness HPI narrative: This is a 73-year-old female presenting to the emergency department due to PICC line issues. She states that she was lifting her son went it pull the PICC line causing some bleeding around the site. She was getting IV antibiotics through her PICC line due to a wound to her right ankle. She denies any pain just some bleeding around the PICC line. Related Data Home Medications Medication Instructions Recorded Confirmed budesonide 3 mg 3 mg PO DAILY 04/16/19 08/30/23 capsule,delayed,extended release multivitamin 1 tab PO DAILY 08/31/22 08/30/23 mycophenolate sodium 360 mg 360 mg PO Q12H 08/31/22 08/30/23 tablet,delayed release tramadol 50 mg tablet 50 mg PO DAILY PRN 08/31/22 08/30/23 clobetasol 0.05 % topical ointment 1 applic topical BID 03/08/23 08/30/23 Previous Rx's Medication Instructions Recorded omeprazole 20 mg capsule,delayed 20 mg PO BID #180 caps 09/21/22 release bupropion HCl 150 mg tablet,12 hr 150 mg PO QAM #90 ea 11/02/22 sustained-release oxybutynin chloride 10 mg 10 mg PO DAILY Overactive bladder 03/07/23 tablet,extended release 24 hr #90 tabs celecoxib 200 mg capsule 200 mg PO DAILY #90 caps 05/07/23 fluconazole 200 mg tablet 200 mg PO DAILY #1 tab 05/07/23 (Diflucan) rosuvastatin 5 mg tablet 5 mg PO DAILY #90 tabs 06/25/23 venlafaxine 150 mg 150 mg PO DAILY #90 caps 06/25/23 capsule,extended release 24 hr acyclovir 400 mg tablet 400 mg PO BID #180 tabs 08/23/23 Synthroid 112 mcg tablet 112 mcg PO DAILY #90 tabs 10/15/23 (levothyroxine) estradiol 0.5 mg tablet See Rx Instructions .Route 11/13/23 .COMPLEX #90 tabs Allergies Allergy/AdvReac Type Severity Reaction Status Date / Time Penicillins Allergy Mild RASH Verified 11/23/23 15:35 Review of Systems <Jamie Jones PA-C - Last Filed: 11/23/23 17:19> Review of Systems Narrative: GENERAL: Denies chills, fatigue, malaise, fever, sweats. HEENT: Denies sinus pain, ear pain, sore throat, difficulty swallowing, dizziness. RESPIRATORY: Denies dyspnea, cough, wheezing, hemoptysis, sputum. CARDIOVASCULAR: Denies chest pain, palpitations, orthopnea, edema, GASTROINTESTINAL: Denies nausea, vomiting, abdominal pain, diarrhea, constipation, melena. : Denies dysuria, frequency, incontinence, hematuria, urinary retention. MUSCULOSKELETAL: denies weakness, joint pain, or bony pain SKIN: Bleeding from PICC site NEUROLOGIC: Denies weakness, headache, numbness, change in speech, confusion, seizures, incoordination. PSYCHIATRIC: No concerning psychosocial issues. 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 Microscopic colitis Generalized anxiety disorder Depression, major, recurrent Acquired hypothyroidism Mixed hyperlipidemia Rosacea Scoliosis Chronic back pain Cervical spine disease Graves disease Recurrent UTI Postmenopausal hormone replacement therapy Cystocele Surgical History History of tonsillectomy Status post laparoscopic supracervical hysterectomy Family History Brother Mental health problem Alcoholic Cancer Cirrhosis Father Alcoholic Diabetes mellitus Cirrhosis Mother Mental health problem Alcoholic Sister Cancer Social History (System 11/23/23 @ 15:35 by Sunil Joe) Smoking Status: Never smoker Smoking Status: Never smoker alcohol intake frequency: holidays/special occasions only Substance Use Type: does not use Exam <Jamie Jones PA-C - Last Filed: 11/23/23 17:19> Narrative Exam Narrative: GENERAL: Well-developed patient, in mild distress. HEAD: Atraumatic. Normocephalic. EYES: Pupils equal round and reactive. Extraocular motions intact. No scleral icterus. No injection or drainage. ENT: Nose without bleeding, purulent drainage. Throat without erythema, to nsillar hypertrophy or exudate. Airway patent. NECK: Trachea midline. Non tender EXTREMITIES: No edema or joint tenderness. NEURO: AOx3. SKIN: Some dried blood noted under the bandage of the PICC line. Initial Vital Signs Initial Vital Signs: Vital Signs Temperature 97.6 F 11/23/23 15:31 Pulse Rate 96 H 11/23/23 15:31 Respiratory Rate 15 11/23/23 15:31 Blood Pressure 146/68 H 11/23/23 15:31 Pulse Oximetry 96 11/23/23 15:31 Oxygen Delivery Method Room Air 11/23/23 15:31 <Harsh Sierra DO - Last Filed: 11/23/23 17:21> Initial Vital Signs Initial Vital Signs: Vital Signs Temperature 97.6 F 11/23/23 15:31 Pulse Rate 96 H 11/23/23 15:31 Respiratory Rate 15 11/23/23 15:31 Blood Pressure 146/68 H 11/23/23 15:31 Pulse Oximetry 96 11/23/23 15:31 Oxygen Delivery Method Room Air 11/23/23 15:31 Course <Jamie Jones PA-C - Last Filed: 11/23/23 17:19> Orders Ordered: ED Orders 11/23/23 15:39 XR chest for PICC 1V Stat Vital Signs Vital signs: Vital Signs - 8 hr 11/23/23 15:31 Temperature 97.6 F Pulse Rate 96 H Respiratory Rate 15 Blood Pressure 146/68 H Pulse Oximetry 96 Oxygen Delivery Method Room Air <Harsh Sierra DO - Last Filed: 11/23/23 17:21> Orders Ordered: ED Orders 11/23/23 15:39 XR chest for PICC 1V Stat Vital Signs Vital signs: Vital Signs - 8 hr 11/23/23 15:31 Temperature 97.6 F Pulse Rate 96 H Respiratory Rate 15 Blood Pressure 146/68 H Pulse Oximetry 96 Oxygen Delivery Method Room Air MDM - Recheck/Abnormal Lab/Rx <Jamie Jones PA-C - Last Filed: 11/23/23 17:19> MDM Narrative Medical decision making narrative: ED course: This is a 73-year-old female presents emergency department due to concerns for PICC line was pulled out of place. Chest x-ray was ordered which showed appropriate PICC line placement. Bandage was changed around the PICC line and patient will be discharged. No evidence of any kind of cellulitis or infection. CC: PICC line issues Complicating co-morbidities: None Data collected from: Previous notes Medical records reviewed: Patient was last seen here 6 months ago due to cellulitis of the ankle. History of hypothyroidism hyperlipidemia. History of depression, osteoarthritis, hysterectomy. Patient was eventually discharged. Differential considered, but not limited to: Inappropriate PICC line placement, infection, bleeding Exam documented above, pertinent findings include: No significant bleeding from the PICC site Lab Test results independently reviewed as above. Pertinent findings: None obtained Imaging studies independently reviewed: Chest x-ray showed appropriate PICC line placement Scores Used: None MIPS Elements: None Consultations: None Treatments: re bandaging of the PICC line dressing Re-evaluations: None Discussion: Discussed plan with the patient was comfortable with the plan Diagnosis: PICC line dressing change Disposition: see below, along with detailed discharge instructions that have been reviewed with patient as well as indications for ED re-evaluation and additional outpatient follow up Discharge Plan Departure Patient Disposition: Home Clinical Impression: Bleeding from PICC line Activity Restrictions/Additional Instructions: Thank you for coming to the [facility] Emergency Department today. The chest x-ray showed that the PICC line was in the appropriate place. I am glad that we are able to change dressing. Please continue using your PICC line as you would. Please return to the emergency department if you develop any fevers, continued bleeding from the PICC site, or any other concerning signs or symptoms. I hope you feel better soon. Please follow up with your primary care provider within a week if your symptoms continue. If you do not have a primary care provider please contact the [facility] Resource line at [phone]. They will ask some questions about your medical history and help you get set up with a provider in the community. Prescriptions: No Action omeprazole 20 mg capsule,delayed release(DR/EC) 20 mg PO BID Qty: 180 3RF oxybutynin chloride 10 mg tablet extended release 24hr 10 mg PO DAILY Qty: 90 3RF celecoxib 200 mg capsule 200 mg PO DAILY Qty: 90 3RF venlafaxine 150 mg capsule,extended release 24hr 150 mg PO DAILY Qty: 90 3RF rosuvastatin 5 mg tablet 5 mg PO DAILY Qty: 90 3RF acyclovir 400 mg tablet 400 mg PO BID Qty: 180 3RF levothyroxine [Synthroid] 112 mcg tablet 112 mcg PO DAILY Qty: 90 3RF Rx Instructions: Brand name only; generic is ineffective. estradiol 0.5 mg tablet See Rx Instructions .ROUTE .COMPLEX Qty: 90 4RF Dose Instruction: TAKE 1 TABLET BY MOUTH EVERY DAY FOR HORMONE REPLACEMENT Rx Instructions: TAKE 1 TABLET BY MOUTH EVERY DAY FOR HORMONE REPLACEMENT bupropion HCl 150 mg tablet sustained-release 12 hr 150 mg PO QAM Qty: 90 3RF clobetasol 0.05 % ointment 1 applic topical BID budesonide 3 mg capsule,delayed,extend.release 3 mg PO DAILY mycophenolate sodium 360 mg tablet,delayed release (DR/EC) 360 mg PO Q12H tramadol 50 mg tablet 50 mg PO DAILY PRN multivitamin Tablet 1 tab PO DAILY fluconazole [Diflucan] 200 mg tablet 200 mg PO DAILY Qty: 1 0RF Referrals: Abdiel Kang MD [Primary Care Provider] - Stand Alone Forms: Patient Portal/API ED Sign-out <Harsh Sierra, - Last Filed: 11/23/23 17:21> Cosign ED Attending Cosignature Attestation: Dr Sierra Co-Sign Statement: I was available for consultation during this patient's emergency department visit. This chart is signed by myself for administrative purposes only. I did not have direct contact with this patient during this visit. They were seen independently by the APC.
[2023-11-23 17:26] VITALS: BP 132/70; PULSE 84; RESP 18; TEMP 36.6; O2SAT 98
--- NOTE | 2023-11-23 17:33 | PC.NURSE ---
Provider asked this RN to change patient picc line dressing due to blood under the dressing. This RN secured Picc line dressing change kit and performed changed using aseptic technique. New dressing dated and initials placed.
== END 2023-11-23 17:30 | disposition home or self-care (01) ==
PROVIDERS: Emergency Provider Physician Assistant Medical; PCP Internal Medicine
DX: T82.838A Hemorrhage due to vascular prosthetic devices, implants and grafts, initial encounter (principal)
CPT/HCPCS: 71045; 99283

== ENCOUNTER → 2023-11-28 21:56 | Outpatient (ROUT) | payer OTHER, SELFPAY ==
[2023-11-28 22:05] LABS: Add Manual Diff / Slide Review NO; Basophils Absolute Auto 0 /uL (0-100); Basophils Percent Auto 0.7 % (0-2); Eosinophils Absolute Auto 200 /uL (0-450); Eosinophils Percent Auto 2.8 % (2-4); Hematocrit 40.4 % (36-46); Hemoglobin 13.4 g/dL (12.0-16.0); Lymphocytes Absolute Auto 1600 /uL (1100-4500); Lymphocytes Percent Auto 26.6 % (25-40); Mean Corpuscular HGB Conc 33.2 % (30-36); Mean Corpuscular Hemoglobin 34.2 PG (26-34); Monocytes Absolute Auto 600 /uL (0-900); Neutrophils Absolute Auto 3700 /uL (1500-7000); Neutrophils Percent Auto 59.9 % (50-75); Platelet Count 230 X10^3/uL (150-400); Red Blood Cell Count 3.92 X10^6/uL (4.0-5.2); Red Cell Distribution Width 13.7 % (11.6-14.8); White Blood Cell Count 6.1 X10^3/uL (4.5-11.0)
[2023-11-28 23:20] LABS: Alanine Aminotransferase 26 IU/L (<35); Albumin 4.2 g/dL (3.5-5.0); Albumin Globulin Ratio 1.6 (1.0-2.8); Alkaline Phosphatase 88 U/L (38-126); Aspartate Aminotransferase 33 IU/L (14-36); BUN Creatinine Ratio 35.3 (6-22); Bilirubin Total 0.3 mg/dL (0.2-1.3); Blood Urea Nitrogen 24 mg/dL (7-17); Calcium 9.8 mg/dL (8.4-10.2); Carbon Dioxide 27 mmol/L (22-32); Chloride 109 mmol/L (98-107); Estimated Glomerular Filt Rate > 60 mL/min (>60); Globulin 2.7 g/dL (1.7-4.1); Glucose 96 mg/dL (80-110); HEMOLYSIS < 15 (0-50); Potassium 4.4 mmol/L (3.4-5.1); Sodium 139 mmol/L (137-145); Total Protein 6.9 g/dL (6.3-8.2)
[2023-11-29 00:09] LABS: C-Reactive Protein Quant < 0.5 mg/dL (<1.0)
== END ==
PROVIDERS: PCP Internal Medicine; Visit Provider Internal Medicine Infectious Disease
DX: A49.8 Other bacterial infections of unspecified site (principal); M86.272 Subacute osteomyelitis, left ankle and foot
CPT/HCPCS: 80053; 85025; 86140

== ENCOUNTER → 2023-12-05 18:09 | Outpatient (ROUT) | payer OTHER, SELFPAY ==
[2023-12-05 18:24] LABS: Add Manual Diff / Slide Review NO; Basophils Absolute Auto 0 /uL (0-100); Basophils Percent Auto 0.5 % (0-2); Eosinophils Absolute Auto 100 /uL (0-450); Eosinophils Percent Auto 1.3 % (2-4); Hemoglobin 13.5 g/dL (12.0-16.0); Lymphocytes Absolute Auto 1800 /uL (1100-4500); Lymphocytes Percent Auto 25.6 % (25-40); Mean Corpuscular HGB Conc 33.7 % (30-36); Mean Corpuscular Hemoglobin 34.7 PG (26-34); Mean Corpuscular Volume 102.8 fL (80-100); Monocytes Absolute Auto 900 /uL (0-900); Monocytes Percent Auto 13.2 % (3-14); Neutrophils Absolute Auto 4200 /uL (1500-7000); Neutrophils Percent Auto 59.4 % (50-75); Platelet Count 228 X10^3/uL (150-400); Red Blood Cell Count 3.89 X10^6/uL (4.0-5.2)
[2023-12-05 18:49] LABS: Alanine Aminotransferase 21 IU/L (<35); Albumin 4.2 g/dL (3.5-5.0); Albumin Globulin Ratio 1.6 (1.0-2.8); Alkaline Phosphatase 85 U/L (38-126); Aspartate Aminotransferase 27 IU/L (14-36); BUN Creatinine Ratio 42.1 (6-22); Bilirubin Total 0.6 mg/dL (0.2-1.3); Blood Urea Nitrogen 32 mg/dL (7-17); C-Reactive Protein Quant 1.3 mg/dL (<1.0); Calcium 9.7 mg/dL (8.4-10.2); Carbon Dioxide 30 mmol/L (22-32); Chloride 105 mmol/L (98-107); Estimated Glomerular Filt Rate > 60 mL/min (>60); Globulin 2.7 g/dL (1.7-4.1); Glucose 66 mg/dL (80-110); HEMOLYSIS < 15 (0-50); Potassium 4.2 mmol/L (3.4-5.1); Sodium 141 mmol/L (137-145); Total Protein 6.9 g/dL (6.3-8.2)
== END ==
PROVIDERS: PCP Internal Medicine; Visit Provider Internal Medicine Infectious Disease
DX: A49.8 Other bacterial infections of unspecified site (principal); M86.272 Subacute osteomyelitis, left ankle and foot
CPT/HCPCS: 80053; 85025; 86140

== ENCOUNTER → 2023-12-06 14:34 | Outpatient (CLI) | payer OTHER, SELFPAY | LOC: WC 14:38 | PROVIDERS: PCP Internal Medicine; Referring Provider Internal Medicine; Visit Provider Surgery | DX: L97.322 Non-pressure chronic ulcer of left ankle with fat layer exposed (principal); I87.2 Venous insufficiency (chronic) (peripheral); R60.0 Localized edema; L53.9 Erythematous condition, unspecified; M25.572 Pain in left ankle and joints of left foot | CPT/HCPCS: 11104; 99213 ==

== ENCOUNTER 2023-12-11 10:42 | Emergency (ER) | payer OTHER, SELFPAY ==
[2023-12-11] VITALS (7 sets, daily range): BP systolic 129–188; BP diastolic 64–86; PULSE 70–87; RESP 14–23; TEMP 36.5; O2SAT 97–100; BMI 22.2
--- NOTE | 2023-12-11 10:46 | DI.CT.S_ITS ---
PROCEDURE: CT HEAD/BRAIN WO CON INDICATIONS: syncope possible seizure TECHNIQUE: Noncontrast 4.5 mm thick angled axial sections acquired from the foramen magnum to the vertex, with coronal and sagittal reformats. For radiation dose reduction, the following was used: automated exposure control, adjustment of mA and/or kV according to patient size. COMPARISON: None. FINDINGS: Image quality: Diagnostic. CSF spaces: Basal cisterns are patent. No extra-axial fluid collections. The ventricles are symmetric in size and shape. Brain: No intracranial bleeds or masses. There is cerebral volume loss for age, with resultant ventricular and sulcal prominence. There are periventricular and deep white matter chronic small vessel ischemic changes. There is intracranial internal carotid artery atherosclerosis. Skull and face: Calvarium and visualized facial bones appear intact, without suspicious lesions. Sinuses: Visualized sinuses and mastoids are clear. IMPRESSION: No acute intracranial pathology. Mild findings likely associated with microvascular ischemic change. Dictated by: Debbi Haynes M.D. on 12/11/2023 at 12:13 Approved by: Debbi Haynes M.D. on 12/11/2023 at 12:14
--- NOTE | 2023-12-11 10:49 | ED.GENADULT ---
HPI - General Adult General Chief complaint: Syncope Stated complaint: sent by pcp for eval Time Seen by Provider: 12/11/23 10:44 Source: patient and other (Primary care provider) Mode of arrival: Ambulatory Limitations: no limitations History of Present Illness HPI narrative: Patient is a 73-year-old female who was sent her primary care doctor's office for a stat head CT to evaluate a potential syncopal/she was or episode that happened approximately 10 days ago. She has been on ertapenem for osteomyelitis. On 12/02/2023 the patient was found by a family member on the ground in her home. She was evaluated by EMS and recommended that she be brought to the emergency department but the patient declined. Patient does not remember the event. She stated that she slept for at least a day afterwards. She has no prior history of seizures. Since that time she has been taken off of the medication by the ertapenem. She went to her primary doctor's office today who was concerned about the event that happened and thought that she needed an emergent head CT to evaluate for other possible issues. Currently patient has no symptoms. She states she does not remember the event. Had no prodromal symptoms. Did not injure anything when she fell. Related Data Home Medications Medication Instructions Recorded Confirmed budesonide 3 mg 3 mg PO DAILY 04/16/19 12/11/23 capsule,delayed,extended release multivitamin 1 tab PO DAILY 08/31/22 12/11/23 mycophenolate sodium 360 mg 360 mg PO Q12H 08/31/22 12/11/23 tablet,delayed release tramadol 50 mg tablet 50 mg PO DAILY PRN 08/31/22 12/11/23 clobetasol 0.05 % topical ointment 1 applic topical BID 03/08/23 12/11/23 Previous Rx's Medication Instructions Recorded omeprazole 20 mg capsule,delayed 20 mg PO BID #180 caps 09/21/22 release bupropion HCl 150 mg tablet,12 hr 150 mg PO QAM #90 ea 11/02/22 sustained-release oxybutynin chloride 10 mg 10 mg PO DAILY Overactive bladder 03/07/23 tablet,extended release 24 hr #90 tabs celecoxib 200 mg capsule 200 mg PO DAILY #90 caps 05/07/23 fluconazole 200 mg tablet 200 mg PO DAILY #1 tab 05/07/23 (Diflucan) rosuvastatin 5 mg tablet 5 mg PO DAILY #90 tabs 06/25/23 venlafaxine 150 mg 150 mg PO DAILY #90 caps 06/25/23 capsule,extended release 24 hr acyclovir 400 mg tablet 400 mg PO BID #180 tabs 08/23/23 Synthroid 112 mcg tablet 112 mcg PO DAILY #90 tabs 10/15/23 (levothyroxine) estradiol 0.5 mg tablet See Rx Instructions .Route 11/13/23 .COMPLEX #90 tabs Allergies Allergy/AdvReac Type Severity Reaction Status Date / Time Penicillins Allergy Mild RASH Verified 12/11/23 10:52 Review of Systems Review of Systems ROS Unobtainable: All systems reviewed & are unremarkable except as noted in HPI and below Patient History Medical History Ankle osteomyelitis, left Cervical myelopathy with cervical radiculopathy Cervical radiculopathy, chronic Osteopenia after menopause 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 Microscopic colitis Generalized anxiety disorder Depression, major, recurrent Acquired hypothyroidism Mixed hyperlipidemia Rosacea Scoliosis Chronic back pain Cervical spine disease Graves disease Recurrent UTI Postmenopausal hormone replacement therapy Cystocele Surgical History History of tonsillectomy Status post laparoscopic supracervical hysterectomy Family History Brother Mental health problem Alcoholic Cancer Cirrhosis Father Alcoholic Diabetes mellitus Cirrhosis Mother Mental health problem Alcoholic Sister Cancer Social History Smoking Status: Never smoker Smoking Status: Never smoker alcohol intake frequency: holidays/special occasions only Substance Use Type: does not use Exam Initial Vital Signs Initial Vital Signs: Vital Signs Temperature 97.7 F 12/11/23 10:44 Pulse Rate 87 12/11/23 10:44 Respiratory Rate 14 12/11/23 10:44 Blood Pressure 188/86 H 12/11/23 10:44 Pulse Oximetry 97 12/11/23 10:44 Oxygen Delivery Method Room Air 12/11/23 10:44 HENMT Head: normal to inspection and normocephalic Resp Effort & Inspection: normal respiratory effort Auscultation: clear to auscultation bilaterally Cardio Rate: regular rate Rhythm: regular rhythm GI Inspection: normal to inspection and non-distended Neuro General: patient alert, patient awake, patient oriented x3 and moves all extremities Cognition: normal cognition Speech: speech normal Gait: normal gait Extrem General: normal to inspection and capillary refill normal Course Orders Ordered: ED Orders 12/11/23 10:46 CT head/brain wo con Stat 12/11/23 10:47 EKG-12 Lead Stat 12/11/23 10:50 Complete Blood Count AUTO DIFF Stat Comprehensive Metabolic Panel Stat Lipase Stat Vital Signs Vital signs: Vital Signs - 8 hr 12/11/23 10:44 12/11/23 10:51 12/11/23 11:00 Temperature 97.7 F Pulse Rate 87 79 74 Respiratory Rate 14 20 15 Blood Pressure 188/86 H Pulse Oximetry 97 100 99 Oxygen Delivery Method Room Air 12/11/23 11:00 12/11/23 11:30 12/11/23 11:30 Temperature Pulse Rate 73 Respiratory Rate 22 Blood Pressure 146/68 H 148/77 H Pulse Oximetry 100 Oxygen Delivery Method 12/11/23 11:46 12/11/23 11:46 12/11/23 11:50 Temperature Pulse Rate 74 Respiratory Rate 23 Blood Pressure 137/79 129/64 Pulse Oximetry 99 Oxygen Delivery Method 12/11/23 11:50 12/11/23 12:00 12/11/23 12:00 Temperature Pulse Rate 73 70 Respiratory Rate 16 15 Blood Pressure 144/72 H Pulse Oximetry 99 98 Oxygen Delivery Method Medical Decision Making Medical Records Medical records reviewed: Yes I reviewed the patient's medical records. Lab Data Lab results reviewed: Yes I reviewed the patient's lab results. 12/11/23 10:50 12/11/23 10:50 Labs: Lab Results 12/11/23 Range/Units 10:50 WBC 6.8 (4.5-11.0) X10^3/uL RBC 3.71 L (4.0-5.2) X10^6/uL Hgb 12.8 (12.0-16.0) g/dL Hct 37.8 (36-46) % MCV 101.8 H (80-100) fL MCH 34.5 H (26-34) PG MCHC 33.9 (30-36) % RDW 13.0 (11.6-14.8) % Plt Count 273 (150-400) X10^3/uL Neut % (Auto) 54.8 (50-75) % Lymph % (Auto) 29.1 (25-40) % [place] % (Auto) 12.5 (3-14) % Eos % (Auto) 2.9 (2-4) % Baso % (Auto) 0.7 (0-2) % Neut # (Auto) 3700 (1451-0992) /uL Lymph # (Auto) 2000 (3788-3191) /uL [place] # (Auto) 900 (0-900) /uL Eos # (Auto) 200 (0-450) /uL Baso # (Auto) 0 (0-100) /uL Sodium 145 (137-145) mmol/L Potassium 3.6 (3.4-5.1) mmol/L Chloride 107 (98-107) mmol/L Carbon Dioxide 29 (22-32) mmol/L BUN 33 H (7-17) mg/dL Creatinine 0.77 (0.52-1.04) mg/dL Estimated GFR > 60 (>60) mL/min BUN/Creatinine Ratio 42.9 H (6-22) Glucose 75 L (80-110) mg/dL Calcium 9.8 (8.4-10.2) mg/dL Total Bilirubin 0.5 (0.2-1.3) mg/dL AST 34 (14-36) IU/L ALT 21 (<35) IU/L Alkaline Phosphatase 87 (38-126) U/L Total Protein 7.8 (6.3-8.2) g/dL Albumin 4.7 (3.5-5.0) g/dL Globulin 3.1 (1.7-4.1) g/dL Albumin/Globulin Ratio 1.5 (1.0-2.8) Lipase 43 (23-300) U/L Imaging Data CT scan - head: Radiologist's Impression: PROCEDURE: CT HEAD/BRAIN WO CON INDICATIONS: syncope possible seizure TECHNIQUE: Noncontrast 4.5 mm thick angled axial sections acquired from the foramen magnum to the vertex, with coronal and sagittal reformats. For radiation dose reduction, the following was used: automated exposure control, adjustment of mA and/or kV according to patient size. COMPARISON: None. FINDINGS: Image quality: Diagnostic. CSF spaces: Basal cisterns are patent. No extra-axial fluid collections. The ventricles are symmetric in size and shape. Brain: No intracranial bleeds or masses. There is cerebral volume loss for age, with resultant ventricular and sulcal prominence. There are periventricular and deep white matter chronic small vessel ischemic changes. There is intracranial internal carotid artery atherosclerosis. Skull and face: Calvarium and visualized facial bones appear intact, without suspicious lesions. Sinuses: Visualized sinuses and mastoids are clear. IMPRESSION: No acute intracranial pathology. Mild findings likely associated with microvascular ischemic change. ECG Data Attestation: I personally reviewed and interpreted this ECG as follows: Interpretation: Sinus rhythm Ventricular rate 70 Normal axis Normal QRS Normal QTC No ST T wave changes MDM Narrative Medical decision making narrative: Workup here in the emergency department is unremarkable. Labs unremarkable. Head CT shows no acute pathology. Patient was sent for a head CT by her primary doctor. Will discharge patient back to her primary doctor for further evaluation and treatment. Discharge Plan Departure Patient Disposition: Home Clinical Impression: Syncope Instructions: DI for Syncope in Adults (Fainting) Activity Restrictions/Additional Instructions: Keep all of your scheduled medical appointments. Contact your primary doctor for follow-up. Return to the emergency department for new symptoms. Prescriptions: No Action omeprazole 20 mg capsule,delayed release(DR/EC) 20 mg PO BID Qty: 180 3RF oxybutynin chloride 10 mg tablet extended release 24hr 10 mg PO DAILY Qty: 90 3RF celecoxib 200 mg capsule 200 mg PO DAILY Qty: 90 3RF venlafaxine 150 mg capsule,extended release 24hr 150 mg PO DAILY Qty: 90 3RF rosuvastatin 5 mg tablet 5 mg PO DAILY Qty: 90 3RF acyclovir 400 mg tablet 400 mg PO BID Qty: 180 3RF levothyroxine [Synthroid] 112 mcg tablet 112 mcg PO DAILY Qty: 90 3RF Rx Instructions: Brand name only; generic is ineffective. estradiol 0.5 mg tablet See Rx Instructions .ROUTE .COMPLEX Qty: 90 4RF Dose Instruction: TAKE 1 TABLET BY MOUTH EVERY DAY FOR HORMONE REPLACEMENT Rx Instructions: TAKE 1 TABLET BY MOUTH EVERY DAY FOR HORMONE REPLACEMENT bupropion HCl 150 mg tablet sustained-release 12 hr 150 mg PO QAM Qty: 90 3RF clobetasol 0.05 % ointment 1 applic topical BID budesonide 3 mg capsule,delayed,extend.release 3 mg PO DAILY mycophenolate sodium 360 mg tablet,delayed release (DR/EC) 360 mg PO Q12H tramadol 50 mg tablet 50 mg PO DAILY PRN multivitamin Tablet 1 tab PO DAILY fluconazole [Diflucan] 200 mg tablet 200 mg PO DAILY Qty: 1 0RF Referrals: Abdiel Kang MD [Primary Care Provider] - Stand Alone Forms: Patient Portal/API
[2023-12-11 10:58] LABS: Add Manual Diff / Slide Review NO; Basophils Absolute Auto 0 /uL (0-100); Basophils Percent Auto 0.7 % (0-2); Eosinophils Absolute Auto 200 /uL (0-450); Eosinophils Percent Auto 2.9 % (2-4); Hematocrit 37.8 % (36-46); Hemoglobin 12.8 g/dL (12.0-16.0); Lymphocytes Absolute Auto 2000 /uL (1100-4500); Lymphocytes Percent Auto 29.1 % (25-40); Mean Corpuscular HGB Conc 33.9 % (30-36); Mean Corpuscular Hemoglobin 34.5 PG (26-34); Mean Corpuscular Volume 101.8 fL (80-100); Monocytes Absolute Auto 900 /uL (0-900); Monocytes Percent Auto 12.5 % (3-14); Neutrophils Absolute Auto 3700 /uL (1500-7000); Neutrophils Percent Auto 54.8 % (50-75); Platelet Count 273 X10^3/uL (150-400); Red Blood Cell Count 3.71 X10^6/uL (4.0-5.2); White Blood Cell Count 6.8 X10^3/uL (4.5-11.0)
[2023-12-11 11:12] LABS: Alanine Aminotransferase 21 IU/L (<35); Albumin 4.7 g/dL (3.5-5.0); Albumin Globulin Ratio 1.5 (1.0-2.8); Alkaline Phosphatase 87 U/L (38-126); Aspartate Aminotransferase 34 IU/L (14-36); BUN Creatinine Ratio 42.9 (6-22); Bilirubin Total 0.5 mg/dL (0.2-1.3); Blood Urea Nitrogen 33 mg/dL (7-17); Calcium 9.8 mg/dL (8.4-10.2); Carbon Dioxide 29 mmol/L (22-32); Chloride 107 mmol/L (98-107); Estimated Glomerular Filt Rate > 60 mL/min (>60); Globulin 3.1 g/dL (1.7-4.1); Glucose 75 mg/dL (80-110); HEMOLYSIS < 15 (0-50); Lipase 43 U/L (23-300); Potassium 3.6 mmol/L (3.4-5.1); Sodium 145 mmol/L (137-145); Total Protein 7.8 g/dL (6.3-8.2)
== END 2023-12-11 12:34 | disposition home or self-care (01) ==
PROVIDERS: Emergency Provider Emergency Medicine; PCP Internal Medicine
DX: R55 Syncope and collapse (principal); R07.9 Chest pain, unspecified
CPT/HCPCS: 36415; 70450; 80053; 83690; 85025; 93005; 93010; 99283; 99284

== ENCOUNTER → 2023-12-13 11:33 | Outpatient (CLI) | payer OTHER, SELFPAY | LOC: WC 11:33 | PROVIDERS: PCP Internal Medicine; Referring Provider Internal Medicine; Visit Provider Surgery | DX: L97.322 Non-pressure chronic ulcer of left ankle with fat layer exposed (principal); I87.2 Venous insufficiency (chronic) (peripheral); R60.0 Localized edema; L53.9 Erythematous condition, unspecified | CPT/HCPCS: 97602; 99213 ==

== ENCOUNTER → 2023-12-20 08:13 | Outpatient (CLI) | payer OTHER, SELFPAY | PROVIDERS: PCP Internal Medicine; Referring Provider Internal Medicine; Visit Provider Surgery | DX: L97.322 Non-pressure chronic ulcer of left ankle with fat layer exposed (principal); I87.2 Venous insufficiency (chronic) (peripheral); R60.0 Localized edema; L53.9 Erythematous condition, unspecified; K75.4 Autoimmune hepatitis | CPT/HCPCS: 97597; 99213 ==

== ENCOUNTER → 2023-12-27 13:57 | Outpatient (CLI) | payer OTHER, SELFPAY | LOC: WC 13:57 | PROVIDERS: PCP Internal Medicine; Referring Provider Internal Medicine; Visit Provider Surgery | DX: L97.322 Non-pressure chronic ulcer of left ankle with fat layer exposed (principal); I87.2 Venous insufficiency (chronic) (peripheral); R60.0 Localized edema; L53.9 Erythematous condition, unspecified; K75.4 Autoimmune hepatitis | CPT/HCPCS: 97597 ==

== ENCOUNTER → 2024-01-10 15:14 | Outpatient (CLI) | payer OTHER, SELFPAY | PROVIDERS: PCP Internal Medicine; Referring Provider Internal Medicine; Visit Provider Physician Assistant | DX: L97.322 Non-pressure chronic ulcer of left ankle with fat layer exposed (principal); I87.2 Venous insufficiency (chronic) (peripheral); R60.0 Localized edema; L53.9 Erythematous condition, unspecified; K75.4 Autoimmune hepatitis | CPT/HCPCS: 97597; 99213 ==

== ENCOUNTER → 2024-01-10 16:22 | Outpatient (CLI) | payer OTHER, SELFPAY ==
[2024-01-10 17:26] LABS: Add Manual Diff / Slide Review NO; Basophils Absolute Auto 0 /uL (0-100); Basophils Percent Auto 0.7 % (0-2); Eosinophils Absolute Auto 100 /uL (0-450); Eosinophils Percent Auto 1.4 % (2-4); Hematocrit 39.9 % (36-46); Hemoglobin 13.5 g/dL (12.0-16.0); Lymphocytes Absolute Auto 2200 /uL (1100-4500); Lymphocytes Percent Auto 33.5 % (25-40); Mean Corpuscular HGB Conc 33.8 % (30-36); Mean Corpuscular Hemoglobin 34.5 PG (26-34); Mean Corpuscular Volume 102.1 fL (80-100); Monocytes Absolute Auto 700 /uL (0-900); Monocytes Percent Auto 10.4 % (3-14); Neutrophils Absolute Auto 3500 /uL (1500-7000); Platelet Count 251 X10^3/uL (150-400); Red Blood Cell Count 3.91 X10^6/uL (4.0-5.2); Red Cell Distribution Width 13.2 % (11.6-14.8); White Blood Cell Count 6.5 X10^3/uL (4.5-11.0)
[2024-01-10 18:00] LABS: C-Reactive Protein Quant < 0.5 mg/dL (<1.0)
[2024-01-10 18:13] LABS: Erythrocyte Sedimentation Rate 19 MM/HR (0-20)
== END ==
LOC: LAB 16:25
PROVIDERS: PCP Internal Medicine; Referring Provider Internal Medicine Infectious Disease; Visit Provider Internal Medicine Infectious Disease
DX: T14.8XXA Other injury of unspecified body region, initial encounter (principal)
CPT/HCPCS: 36415; 85025; 85651; 86140; 97597

== ENCOUNTER → 2024-01-17 13:39 | Outpatient (CLI) | payer OTHER, SELFPAY | PROVIDERS: PCP Internal Medicine; Referring Provider Internal Medicine; Visit Provider Surgery | DX: L97.322 Non-pressure chronic ulcer of left ankle with fat layer exposed (principal); I87.2 Venous insufficiency (chronic) (peripheral); L53.9 Erythematous condition, unspecified; R60.0 Localized edema; K75.4 Autoimmune hepatitis; M25.572 Pain in left ankle and joints of left foot; Z79.620 Long term (current) use of immunosuppressive biologic | CPT/HCPCS: 11104; 99213 ==

== ENCOUNTER 2024-01-19 23:05 | Emergency (ER) | payer OTHER, SELFPAY ==
[2024-01-19 23:15] VITALS: BP 172/81; PULSE 103; PULSE 99; RESP 18; TEMP 36.6; O2SAT 98; BMI 22.4
[2024-01-19 23:30] VITALS: BP 146/86; PULSE 94; O2SAT 96
--- NOTE | 2024-01-19 23:47 | ED_ITS ---
HPI - General Adult General Chief complaint: Nausea/Vomiting/Diarrhea Stated complaint: Disorientated, sent over from on-call dr Time Seen by Provider: 01/19/24 23:20 Source: patient, RN notes reviewed and old records reviewed Limitations: no limitations History of Present Illness HPI narrative: 73-year-old female history of hypothyroidism, dyslipidemia, depression, chronic unhealing wound in her left medial ankle following with Infectious Disease and Wound Care. Patient presents this evening with complaint of feeling off. She states she feels like electricity is shooting through her brain. She states she has not having pain accepted her wound. She states her thoughts have been difficult, she has trouble sometimes tracking them. She states no fevers, she denies headache, she states she is chronic diplopia and follows with Dr. Malik from Ophthalmology. She states that has been present for several months. She notes she had have a seizure couple months ago while on ertapenem. She does not think she has had any additional seizure activity. She has not had any loss of time. Patient denies any chest pain or shortness of breath. She has had nausea today but no vomiting. She has not eaten or drank much in the last day. She denies any diarrhea constipation. States she is stooling regularly, denies any dysuria urgency or frequency. She states she did do a urine strep test see if she had any changes in it was negative. She denies any new numbness tingling or weakness. No loss of consciousness. She notes that her wound on her ankle has not been healing, she is following with Infectious Disease currently on doxycycline and off IV antibiotics and she is following with Wound Care and receiving hyperbaric treatments. She does note a little bit painful this evening after cleaning it. 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 She states symptoms have going on for at least a month. She states they feel little worse this evening in the nausea was printed trending from for drinking anything. Patient states she believes she has been taking her medications regularly, she states she did not take any extra, she has not had any new medications or stopped any medications. She has not had any dosage adjustments. Reports an allergy to penicillin. No tobacco, occasional alcohol, no recreational drugs. Related Data Home Medications Medication Instructions Recorded Confirmed budesonide 3 mg 3 mg PO DAILY 04/16/19 12/18/23 capsule,delayed,extended release multivitamin 1 tab PO DAILY 08/31/22 12/18/23 mycophenolate sodium 360 mg 360 mg PO Q12H 08/31/22 12/18/23 tablet,delayed release tramadol 50 mg tablet 50 mg PO DAILY PRN 08/31/22 12/18/23 clobetasol 0.05 % topical ointment 1 applic topical BID 03/08/23 12/18/23 Previous Rx's Medication Instructions Recorded omeprazole 20 mg capsule,delayed 20 mg PO BID #180 caps 09/21/22 release bupropion HCl 150 mg tablet,12 hr 150 mg PO QAM #90 ea 11/02/22 sustained-release oxybutynin chloride 10 mg 10 mg PO DAILY Overactive bladder 03/07/23 tablet,extended release 24 hr #90 tabs celecoxib 200 mg capsule 200 mg PO DAILY #90 caps 05/07/23 fluconazole 200 mg tablet 200 mg PO DAILY #1 tab 05/07/23 (Diflucan) rosuvastatin 5 mg tablet 5 mg PO DAILY #90 tabs 06/25/23 venlafaxine 150 mg 150 mg PO DAILY #90 caps 06/25/23 capsule,extended release 24 hr acyclovir 400 mg tablet 400 mg PO BID #180 tabs 08/23/23 Synthroid 112 mcg tablet 112 mcg PO DAILY #90 tabs 10/15/23 (levothyroxine) estradiol 0.5 mg tablet See Rx Instructions .Route 11/13/23 .COMPLEX #90 tabs nitrofurantoin 100 mg PO Q12H 7 days #14 caps 01/20/24 monohydrate/macrocrystals 100 mg capsule (Macrobid) Allergies Allergy/AdvReac Type Severity Reaction Status Date / Time Penicillins Allergy Mild RASH Verified 12/18/23 15:12 Review of Systems Review of Systems ROS Unobtainable: All systems reviewed & are unremarkable except as noted in HPI and below Patient History Medical History Ulcer of left ankle Ankle osteomyelitis, left Cervical myelopathy with cervical radiculopathy Cervical radiculopathy, chronic Osteopenia after menopause 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 Microscopic colitis Generalized anxiety disorder Depression, major, recurrent Acquired hypothyroidism Mixed hyperlipidemia Rosacea Scoliosis Chronic back pain Cervical spine disease Graves disease Recurrent UTI Postmenopausal hormone replacement therapy Cystocele Surgical History History of tonsillectomy Status post laparoscopic supracervical hysterectomy Family History Brother Mental health problem Alcoholic Cancer Cirrhosis Father Alcoholic Diabetes mellitus Cirrhosis Mother Mental health problem Alcoholic Sister Cancer Social History Smoking Status: Never smoker Smoking Status: Never smoker alcohol intake frequency: holidays/special occasions only Substance Use Type: does not use Exam Narrative Exam Narrative: GEN: Thin, well-appearing female, alert and oriented, patient appears to be in mild distress. Patient does jump thought to thought but can follow her train of thought overall. HEENT: Atraumatic, pupils are equal round reactive to light, extraocular movements are intact, nares are clear, TMs are clear with no fluid, there is no conjunctival pallor. Throat is clear without any exudates, erythema, tonsillar enlargement or uvular deviation, no facial droop. HEART: Regular rate and rhythm without murmur, clicks, rubs. Pulses are equal in upper and lower extremities LUNGS:Lungs clear to auscultation, no wheezes, rales, crackles, chest moves symmetrically ABD:bowel sounds normal, soft, non-tender, no guarding, rebound, rigidity, no masses noted, no hepatosplenomegaly :No CVA tenderness MSCL: Non-tender, no muscle atrophy, muscles strength 5/5 upper and lower extremities, full range of motion. Patient has ulceration of the left ankle, there is whitish discoloration in the center with some surrounding erythema. Area is tender to touch. Patient states has been present since February of 2023. NEURO:CN 2-12 intact, sensation normal, reflexes 2/4 upper and lower extremities. PSYCH: Patient notes depression but states it is under control, denies any homicidal suicidal ideation, denies any hallucinations. Does note that her thoughts seem off, denies any insomnia. Initial Vital Signs Initial Vital Signs: Vital Signs Temperature 97.8 F 01/19/24 23:15 Pulse Rate 103 H 01/19/24 23:15 Respiratory Rate 18 01/19/24 23:15 Blood Pressure 172/81 H 01/19/24 23:15 Pulse Oximetry 98 01/19/24 23:15 Oxygen Delivery Method Room Air 01/19/24 23:15 Course Orders Ordered: ED Orders 01/20/24 00:00 CT head/brain wo con Stat 01/20/24 00:01 EKG-12 Lead Stat 01/20/24 00:40 Acetaminophen Stat Complete Blood Count AUTO DIFF Stat Comprehensive Metabolic Panel Stat ETOH [Ethanol (ETOH)] Stat Free T4, Direct Thyroxine Stat Lactate (Lactic Acid) Stat Lipase Stat Procalcitonin Stat Salicylate Stat TSH [Thyroid Stimulating Hormone] Stat 01/20/24 01:17 Blood Culture Stat 01/20/24 02:00 Urinalysis and Microscopic Stat Urine Culture Stat Urine Drug Screen, Rapid Stat Discontinued Medications Ketorolac Tromethamine (Ketorolac 30 Mg/Ml Vial) 15 mg IV NOW ONE Stop: 01/20/24 00:04 Last Admin: 01/20/24 00:43 Dose: 15 mg Documented By: BARRON Nitrofurantoin Macrocrystals (Nitrofurantoin Er 100 Mg Capsule) 100 mg PO NOW ONE Stop: 01/20/24 02:48 Last Admin: 01/20/24 02:58 Dose: 100 mg Documented By: BARRON Ondansetron HCl (Ondansetron 4 Mg/2 Ml Inj) 4 mg IV NOW ONE Stop: 01/20/24 00:04 Last Admin: 01/20/24 00:44 Dose: 4 mg Documented By: BARRON Vital Signs Vital signs: Vital Signs - 8 hr 01/19/24 23:15 01/19/24 23:15 01/19/24 23:30 Temperature 97.8 F Pulse Rate 103 H 99 H 94 H Respiratory Rate 18 Blood Pressure 172/81 H Pulse Oximetry 98 98 96 Oxygen Delivery Method Room Air 01/19/24 23:30 01/20/24 00:00 01/20/24 00:00 Temperature Pulse Rate 85 Respiratory Rate Blood Pressure 146/86 H 156/86 H Pulse Oximetry 96 Oxygen Delivery Method Room Air 01/20/24 00:30 01/20/24 00:30 01/20/24 01:00 Temperature Pulse Rate 88 74 Respiratory Rate Blood Pressure 170/92 H Pulse Oximetry 97 97 Oxygen Delivery Method 01/20/24 01:00 01/20/24 01:30 01/20/24 01:31 Temperature Pulse Rate 84 84 Respiratory Rate Blood Pressure 176/83 H Pulse Oximetry 97 97 Oxygen Delivery Method 01/20/24 01:31 01/20/24 02:54 01/20/24 02:55 Temperature Pulse Rate 83 85 Respiratory Rate 18 Blood Pressure 194/77 H Pulse Oximetry 97 97 Oxygen Delivery Method 01/20/24 02:55 Temperature Pulse Rate Respiratory Rate Blood Pressure 175/81 H Pulse Oximetry Oxygen Delivery Method Medical Decision Making Lab Data 01/20/24 00:40 01/20/24 00:40 Labs: Lab Results 01/20/24 01/20/24 01/20/24 Range/Units 00:40 02:00 02:00 WBC 10.2 (4.5-11.0) X10^3/uL RBC 4.00 (4.0-5.2) X10^6/uL Hgb 13.8 (12.0-16.0) g/dL Hct 40.4 (36-46) % MCV 101.0 H (80-100) fL MCH 34.4 H (26-34) PG MCHC 34.0 (30-36) % RDW 13.0 (11.6-14.8) % Plt Count 276 (150-400) X10^3/uL Neut % (Auto) 72.5 (50-75) % Lymph % (Auto) 16.7 L (25-40) % [place] % (Auto) 9.6 (3-14) % Eos % (Auto) 0.6 L (2-4) % Baso % (Auto) 0.6 (0-2) % Neut # (Auto) 7400 H (7907-0435) /uL Lymph # (Auto) 1700 (5919-9439) /uL [place] # (Auto) 1000 H (0-900) /uL Eos # (Auto) 100 (0-450) /uL Baso # (Auto) 100 (0-100) /uL Sodium 140 (137-145) mmol/L Potassium 4.2 (3.4-5.1) mmol/L Chloride 108 H (98-107) mmol/L Carbon Dioxide 25 (22-32) mmol/L BUN 22 H (7-17) mg/dL Creatinine 0.85 (0.52-1.04) mg/dL Estimated GFR > 60 (>60) mL/min BUN/Creatinine Ratio 25.9 H (6-22) Glucose 103 (80-110) mg/dL Lactate 1.1 (0.7-2.1) mmol/L Calcium 10.4 H (8.4-10.2) mg/dL Total Bilirubin 0.6 (0.2-1.3) mg/dL AST 37 H (14-36) IU/L ALT 24 (<35) IU/L Alkaline Phosphatase 88 (38-126) U/L Total Protein 7.7 (6.3-8.2) g/dL Albumin 4.5 (3.5-5.0) g/dL Globulin 3.2 (1.7-4.1) g/dL Albumin/Globulin Ratio 1.4 (1.0-2.8) Lipase 37 (23-300) U/L Procalcitonin 0.040 (<0.5) ng/mL TSH 11.4 H (0.47-4.68) uIU/mL Free T4 1.40 (0.78-2.19) ng/dL Urine Color Yellow Urine Appearance Clear Urine pH 6.0 Normal (4.5-8.0) Ur Specific [place] 1.015 (1.000-1.035) Urine Protein Negative (Negative) Urine Glucose (UA) Negative (Negative) g/dL Urine Ketones Trace H (NEGATIVE) Urine Occult Blood Negative (Negative) Urine Nitrate Negative (Negative) Urine Bilirubin Negative (NEGATIVE) Urine Urobilinogen 0.2 (0.2) E.U./dL Ur Leukocyte Esterase Trace H (NEGATIVE) Urine RBC 0-1/hpf (0-5/HPF) Urine WBC 0-1/hpf (0-5/HPF) Ur Squamous Epith Cells 5-10 /hpf H (0-5/HPF) Urine Bacteria Occasional (0-1) (None) Urine Mucus 1+ H (Negative) Ur Culture Indicated? Cult not indicated Vol Urine Centrifuged 10ml (spun) Salicylates < 1.0 (<20) mg/dL U Opiates 300ng/mL cut Negative (Negative) Ur Oxycodone Screen Negative (Negative) Urine Methadone Screen Negative (Negative) Acetaminophen < 10 (10-30) ug/mL Ur Barbiturates Screen Negative (Negative) U Tricyclic Antidepress Negative (Negative) Ur Phencyclidine Scrn Negative (Negative) Ur Amphetamines Screen Negative (Negative) U Methamphetamines Scrn Negative (Negative) Ur MDMA Scrn (Ecstasy) Negative (Negative) U Benzodiazepines Scrn Negative (Negative) Urine Cocaine Screen Negative (Negative) U Marijuana (THC) Screen Negative (Negative) Urine Specific [place] Normal (Normal) Ethyl Alcohol < 10 ( - 10) mg/dL Ur Creatinine Normal (Normal) Imaging Data CT scan - head: Radiologist's Impression: Close Head CT (Signed) Pawan Bhakta - 01/20/[address] (Signed) Debbi Haynes - 12/11/23 Chest X-Ray (Signed) Jeremy Nelson - 11/23/23 Chest X-Ray (Cancelled) Jeremy Nelson - 11/23/23 Ankle MRI (Signed) Randall Mortensen - 10/10/23 Ankle MRI (Signed) Randall Mortensen - 07/10/23 Ankle X-Ray (Signed) Basilio Li - 05/02/23 Cervical Spine MRI (Signed) Layton Villar - 02/15/23 Cervical Spine X-Ray (Signed) Jagdish Beck - 12/29/22 DEXA Result 09/21/22 Bone Densitometry 09/21/22 Mammogram Result 05/12/22 Wrist X-Ray (Signed) Adriana Avina - 11/14/21 Wrist X-Ray (Signed) Misa Harris - 11/14/21 Hand X-Ray (Signed) KimberlyAzra teeu - 11/14/21 Hand X-Ray (Signed) Adriana Avina - 11/14/21 Lumbar Spine X-Ray (Signed) KimberlyAzra teeu - 11/26/20 Cervical Spine X-Ray (Signed) KimberlyEstevan teeeyu - 11/26/20 DI Result 11/08/20 Forearm X-Ray (Signed) Geneva Hinojosa - 12/26/19 Finger X-Ray (Signed) Ranadll Mortensen - 09/29/19 Brain MRI (Signed) Misa Harris - 04/24/19 Tibia/Fibula X-Ray (Signed) Ayo Beckman - 07/08/18 DI Result 01/02/18 Pelvis Ultrasound (Signed) Jeremy Nelson - 12/25/17 Abdomen Ultrasound (Signed) Jeremy Nelson - 12/25/17 Abdomen/Pelvis CT (Signed) Tho Lao - 12/19/17 Launch?Image [address] [address] [address] Scan Report Signed Patient: Ann Murcia MR#: [id number] : 1950 Acct:[id number] Age/Sex: 73 / F Date of Service: 01/20/24 Loc: ED Accession Number: [id number] Procedure: CT head/brain wo con Ordering Provider: Nahomy Chua D.O. PROCEDURE: CT HEAD/BRAIN WO CON INDICATIONS: patient feels off' chronic double vision, trouble with thou TECHNIQUE: Noncontrast 4.5 mm thick angled axial sections acquired from the foramen magnum to the vertex, with coronal and sagittal reformats. For radiation dose reduction, the following was used: automated exposure control, adjustment of mA and/or kV according to patient size. COMPARISON: [facility], CT, CT HEAD/BRAIN WO CON, 12/11/2023, 11:43. FINDINGS: Image quality: Diagnostic. CSF spaces: Basal cisterns are patent. No extra-axial fluid collections. Ventricles are normal in size and shape. Brain: No midline shift. No intracranial masses or hemorrhage. Walsh-white matter interface is normal. Skull and face: Calvarium and visualized facial bones are intact, without suspicious lesions. Sinuses: Visualized sinuses and mastoids are clear. IMPRESSION: Mild age-appropriate atrophy chronic ischemic change. No intracranial hemorrhage or mass effect. Approved by: Pawan Bhakta M.D. on 01/20/2024 at 0:09 ? ECG Data Attestation: I personally reviewed and interpreted this ECG as follows: Prior ECG tracings: available for review Interpretation: Sinus rhythm rate of 74 KS 144 QRS 80 QTC 435, no acute ST elevation or depression appreciated. Patient has prior from 12/11/2023. MDM Narrative Medical decision making narrative: Labs show white count of 10 2 hemoglobin of 13.8, macrocytosis, platelets of 276. Chemistry shows sodium 140 potassium 0.2 chloride of 108 CO2 of 25 BUN 22 with creatinine 0.85, glucose of 1 lactate 1.1 calcium 10.4, bilirubin 0.6 AST is 37 ALT is 24 alk-phos is 88, Ts are negative. Procalcitonin 0.04. TSH 11.4 patient does take Synthroid per chart but, free T4 is 1.4. Patient notes that she is on natural thyroid supplementation and does follow with her doctor she states that they follow her free T4 level typically Tylenol, salicylate ETOH are negative. UDS is negative. UA shows trace ketones, trace leuks, 5-10 squamous 1 white cell, 1 red cell, occasional bacteria, 1+ mucus. Urine was sent for culture. Head CT-mild age-appropriate atrophy, chronic ischemic change no intracranial hemorrhage or mass effect. Patient received fluids Zofran and Toradol, patient states she feels much improved. She ambulated to the bathroom to give urinalysis without issue. She does note some spasms in her foot that she relates to her chronic infection. Discussed findings patient today she does feel somewhat improved after medications. She would like to return home. She is alert, appropriate she describes some changes to her thought process but does not appear to be significantly altered. Discussed urine sample is questionable infection we will treat but did order culture, blood cultures are also pending as she has had a chronic infection lower extremity. Noted changes to her TSH but that her T4 is appropriate. Breasts patient's workup does not show a clear acute cause. Encouraged patient to follow-up as there is potential for other causes of her symptoms. Discussed return precautions. All questions answered. Discharge Plan Departure Patient Disposition: Home Clinical Impression: Acute UTI Activity Restrictions/Additional Instructions: Please follow up with your physician for recheck. Your urine does reflect some possible infection you have been prescribed any antibiotic. Prescription sent to [facility] in [place]. If this does not improve your symptoms I would recommend that you talk with your physician about other possible causes. Your TSH was elevated at 11.4 but your T4 was appropriate range at 1.4, share this information with your physician. You do have blood cultures and a urine culture pending these typically take 48- 72 hours to result. If blood cultures are positive you would be contacted. If urine culture is positive but drawn appropriate antibiotics you will not be contacted if there is resistance we will call you to let you know. Please return if you are having any other new or concerning changes fevers, worsening headaches, alterations in mental status, new chest pain or shortness of breath, persistent nausea or vomiting, difficulty with movement, loss of bowel or bladder control or other new or concerning changes. Prescriptions: New nitrofurantoin monohyd/m-cryst [Macrobid] 100 mg capsule 100 mg PO Q12H 7 Days Qty: 14 0RF Rx Instructions: must administer with a meal/food No Action omeprazole 20 mg capsule,delayed release(DR/EC) 20 mg PO BID Qty: 180 3RF oxybutynin chloride 10 mg tablet extended release 24hr 10 mg PO DAILY Qty: 90 3RF celecoxib 200 mg capsule 200 mg PO DAILY Qty: 90 3RF venlafaxine 150 mg capsule,extended release 24hr 150 mg PO DAILY Qty: 90 3RF rosuvastatin 5 mg tablet 5 mg PO DAILY Qty: 90 3RF acyclovir 400 mg tablet 400 mg PO BID Qty: 180 3RF levothyroxine [Synthroid] 112 mcg tablet 112 mcg PO DAILY Qty: 90 3RF Rx Instructions: Brand name only; generic is ineffective. estradiol 0.5 mg tablet See Rx Instructions .ROUTE .COMPLEX Qty: 90 4RF Dose Instruction: TAKE 1 TABLET BY MOUTH EVERY DAY FOR HORMONE REPLACEMENT Rx Instructions: TAKE 1 TABLET BY MOUTH EVERY DAY FOR HORMONE REPLACEMENT bupropion HCl 150 mg tablet sustained-release 12 hr 150 mg PO QAM Qty: 90 3RF clobetasol 0.05 % ointment 1 applic topical BID budesonide 3 mg capsule,delayed,extend.release 3 mg PO DAILY mycophenolate sodium 360 mg tablet,delayed release (DR/EC) 360 mg PO Q12H tramadol 50 mg tablet 50 mg PO DAILY PRN multivitamin Tablet 1 tab PO DAILY fluconazole [Diflucan] 200 mg tablet 200 mg PO DAILY Qty: 1 0RF Referrals: Abdiel Kang MD [Primary Care Provider] - Stand Alone Forms: Patient Portal/API
[2024-01-20] VITALS (7 sets, daily range): BP systolic 156–194; BP diastolic 77–92; PULSE 74–88; RESP 18; O2SAT 96–97
--- NOTE | 2024-01-20 | DI.CT.S_ITS ---
PROCEDURE: CT HEAD/BRAIN WO CON INDICATIONS: patient feels off' chronic double vision, trouble with thou TECHNIQUE: Noncontrast 4.5 mm thick angled axial sections acquired from the foramen magnum to the vertex, with coronal and sagittal reformats. For radiation dose reduction, the following was used: automated exposure control, adjustment of mA and/or kV according to patient size. COMPARISON: [facility], CT, CT HEAD/BRAIN WO CON, 12/11/2023, 11:43. FINDINGS: Image quality: Diagnostic. CSF spaces: Basal cisterns are patent. No extra-axial fluid collections. Ventricles are normal in size and shape. Brain: No midline shift. No intracranial masses or hemorrhage. Walsh-white matter interface is normal. Skull and face: Calvarium and visualized facial bones are intact, without suspicious lesions. Sinuses: Visualized sinuses and mastoids are clear. IMPRESSION: Mild age-appropriate atrophy chronic ischemic change. No intracranial hemorrhage or mass effect. Approved by: Pawan Bhakta M.D. on 01/20/2024 at 0:09
--- NOTE | 2024-01-20 00:01 | EKG_ITS ---
[address] [address] Test Date: 2024-01-20 Pat Name: Ann Murcia Department: Room: Gender: Female Hostess Host: MAHNAZ : 1950 Requested By: Order Number: [id number] Reading MD: Rios Ruano Measurements Intervals [place] Rate: 74 P: 58 MD: 144 QRS: 62 QRSD: 80 T: 32 QT: 392 QTc: 435 Interpretive Statements Normal sinus rhythm Possible Left atrial enlargement Cannot rule out Inferior infarct , age undetermined Electronically Signed On 01-21-2024 16:33:59 PDT by Rios Ruano
[2024-01-20] MEDS: KETOROLAC 30 MG/ML VIAL 15 MG IV (00:43)
[2024-01-20] MEDS: ONDANSETRON 4 MG/2 ML INJ IV (00:44)
[2024-01-20 00:56] LABS: Add Manual Diff / Slide Review NO; Basophils Absolute Auto 100 /uL (0-100); Basophils Percent Auto 0.6 % (0-2); Eosinophils Absolute Auto 100 /uL (0-450); Eosinophils Percent Auto 0.6 % (2-4); Hematocrit 40.4 % (36-46); Hemoglobin 13.8 g/dL (12.0-16.0); Lymphocytes Absolute Auto 1700 /uL (1100-4500); Lymphocytes Percent Auto 16.7 % (25-40); Mean Corpuscular Hemoglobin 34.4 PG (26-34); Monocytes Absolute Auto 1000 /uL (0-900); Monocytes Percent Auto 9.6 % (3-14); Neutrophils Absolute Auto 7400 /uL (1500-7000); Neutrophils Percent Auto 72.5 % (50-75); Platelet Count 276 X10^3/uL (150-400); White Blood Cell Count 10.2 X10^3/uL (4.5-11.0)
[2024-01-20 01:06] LABS: Lactate (Lactic Acid) 1.1 mmol/L (0.7-2.1); Lipase 37 U/L (23-300)
[2024-01-20 01:07] LABS: Alanine Aminotransferase 24 IU/L (<35); Albumin 4.5 g/dL (3.5-5.0); Albumin Globulin Ratio 1.4 (1.0-2.8); Alkaline Phosphatase 88 U/L (38-126); Aspartate Aminotransferase 37 IU/L (14-36); BUN Creatinine Ratio 25.9 (6-22); Bilirubin Total 0.6 mg/dL (0.2-1.3); Blood Urea Nitrogen 22 mg/dL (7-17); Calcium 10.4 mg/dL (8.4-10.2); Carbon Dioxide 25 mmol/L (22-32); Chloride 108 mmol/L (98-107); Estimated Glomerular Filt Rate > 60 mL/min (>60); Globulin 3.2 g/dL (1.7-4.1); Glucose 103 mg/dL (80-110); HEMOLYSIS 15 (0-50); Potassium 4.2 mmol/L (3.4-5.1); Sodium 140 mmol/L (137-145); Total Protein 7.7 g/dL (6.3-8.2)
[2024-01-20 01:08] LABS: Acetaminophen < 10 ug/mL (10-30); Ethanol (ETOH) < 10 mg/dL; Salicylate < 1.0 mg/dL (<20)
[2024-01-20 01:38] LABS: Thyroid Stimulating Hormone 11.4 uIU/mL (0.47-4.68)
[2024-01-20 02:06] LABS: Appearance Urine UA CLEAR; Bilirubin Urine UA NEGATIVE (NEGATIVE); Color Urine UA YELLOW; Glucose Urine UA NEGATIVE (Negative); Ketones Urine UA TRACE (NEGATIVE); Leukocyte Esterase Urine UA TRACE (NEGATIVE); Nitrite Urine UA NEGATIVE (Negative); Occult Blood Urine UA NEGATIVE (Negative); Protein Urine UA NEGATIVE (Negative); Specific Gravity Urine UA 1.015 (1.000-1.035); Urobilinogen Urine UA 0.2 E.U./dL (0.2)
[2024-01-20 02:11] LABS: UR Morphine/Opiate cutoff 300 Negative (Negative); Ur Creatinine Normal (Normal); Ur Specific Gravity Normal (Normal); Urine Amphetamines Negative (Negative); Urine Barbiturates Negative (Negative); Urine Benzodiazepines Negative (Negative); Urine Cocaine Negative (Negative); Urine MDMA Negative (Negative); Urine Methadone Negative (Negative); Urine Methamphetamines Negative (Negative); Urine Oxycodone Negative (Negative); Urine Phencyclidine Negative (Negative); Urine Tetrahydrocannabinol Negative (Negative); Urine Tricyclic Antidepressant Negative (Negative); Urine pH Normal (Normal)
[2024-01-20 02:13] LABS: Bacteria Urine Occasional (0-1); Culture Indicated Urine Cult Not Indicated; Mucus Urine 1+ (Negative); RBC Urine 0-1/HPF (0-5/HPF); Squamous Epithelial Cell Urine 5-10 /HPF (0-5/HPF); Urine Volume 10mL (spun); WBC Urine 0-1/HPF (0-5/HPF)
[2024-01-20] MEDS: NITROFURANTOIN ER 100 MG CAPSULE PO (02:58)
== END 2024-01-20 03:44 | disposition home or self-care (01) ==
PROVIDERS: Emergency Provider Emergency Medicine; PCP Internal Medicine
DX: N39.0 Urinary tract infection, site not specified (principal); R11.2 Nausea with vomiting, unspecified
CPT/HCPCS: 70450; 80053; 80305; 80320; 80329; 81001; 83605; 83690; 84145; 84439; 84443; 85025; 87040; 87077; 87086; 87186; 93005; 96374; 96375; 99284; G0480; J1885; J2405

== ENCOUNTER → 2024-01-23 09:34 | Outpatient (CLI) | payer OTHER, SELFPAY ==
--- NOTE | 2024-01-23 09:35 | DI.US.S_ITS ---
PROCEDURE: US ARTERIAL DUPLEX LE LT INDICATIONS: non-healing ulcer of left ankle TECHNIQUE: Color and pulse Doppler interrogation was performed of the left lower extremity arterial system, with image documentation. COMPARISON: None. FINDINGS: Common femoral artery: 117 cm/sec, with triphasic flow. Deep femoral artery: 62 cm/sec, with biphasic flow. Proximal superficial femoral artery: 116 cm/sec, with biphasic flow. Mid superficial femoral artery: 110 cm/sec, with biphasic flow. Distal superficial femoral artery: 105 cm/sec, with biphasic flow. Popliteal artery: 87 cm/sec, with physic flow. Posterior tibial artery: 69/66 cm/sec, with biphasic/biphasic flow. Anterior tibial artery/dorsalis pedis: 80/56 cm/sec, with biphasic/5 flow. Walsh-scale imaging description: Scattered atherosclerotic plaque. IMPRESSION: Multiphasic waveforms of the left lower extremity arterial vasculature with no velocity shift to suggest a hemodynamically significant stenosis. Dictated by: Macie Levy M.D. on 01/23/2024 at 15:24 Approved by: Macie Levy M.D. on 01/23/2024 at 15:25
== END ==
PROVIDERS: PCP Internal Medicine; Referring Provider Physician Assistant; Visit Provider Physician Assistant
DX: L97.329 Non-pressure chronic ulcer of left ankle with unspecified severity (principal)
CPT/HCPCS: 93926

== ENCOUNTER → 2024-01-24 13:45 | Outpatient (CLI) | payer OTHER, SELFPAY | PROVIDERS: PCP Internal Medicine; Referring Provider Internal Medicine; Visit Provider Surgery | DX: L97.322 Non-pressure chronic ulcer of left ankle with fat layer exposed (principal); I87.2 Venous insufficiency (chronic) (peripheral); R60.0 Localized edema; L53.9 Erythematous condition, unspecified; K75.4 Autoimmune hepatitis | CPT/HCPCS: 11042 ==

== ENCOUNTER → 2024-01-29 15:07 | Outpatient (CLI) | payer OTHER, SELFPAY | LOC: WC 15:07 | PROVIDERS: PCP Internal Medicine; Referring Provider Internal Medicine; Visit Provider Surgery | DX: L97.322 Non-pressure chronic ulcer of left ankle with fat layer exposed (principal); I87.2 Venous insufficiency (chronic) (peripheral); R60.0 Localized edema; L53.9 Erythematous condition, unspecified; M25.571 Pain in right ankle and joints of right foot | CPT/HCPCS: 11042 ==

== ENCOUNTER → 2024-02-07 14:01 | Outpatient (CLI) | payer OTHER, SELFPAY | PROVIDERS: PCP Internal Medicine; Referring Provider Internal Medicine; Visit Provider Surgery | DX: L97.322 Non-pressure chronic ulcer of left ankle with fat layer exposed (principal); I87.2 Venous insufficiency (chronic) (peripheral); R60.0 Localized edema; L53.9 Erythematous condition, unspecified; K75.4 Autoimmune hepatitis; L08.89 Other specified local infections of the skin and subcutaneous tissue; Z79.2 Long term (current) use of antibiotics | CPT/HCPCS: 11042; 99213 ==

== ENCOUNTER → 2024-02-20 15:04 | Outpatient (CLI) | payer OTHER, SELFPAY | LOC: WC 15:05 | PROVIDERS: PCP Internal Medicine; Referring Provider Internal Medicine; Visit Provider Surgery | DX: L97.322 Non-pressure chronic ulcer of left ankle with fat layer exposed (principal); I87.2 Venous insufficiency (chronic) (peripheral); R60.0 Localized edema; L53.9 Erythematous condition, unspecified | CPT/HCPCS: 11042 ==

== ENCOUNTER → 2024-02-21 17:39 | Outpatient (CLI) | payer OTHER, SELFPAY ==
[2024-02-21 18:08] LABS: Add Manual Diff / Slide Review NO; Basophils Absolute Auto 100 /uL (0-100); Basophils Percent Auto 1.1 % (0-2); Eosinophils Absolute Auto 100 /uL (0-450); Eosinophils Percent Auto 1.5 % (2-4); Hematocrit 41.1 % (36-46); Hemoglobin 13.5 g/dL (12.0-16.0); Lymphocytes Absolute Auto 1900 /uL (1100-4500); Lymphocytes Percent Auto 33.2 % (25-40); Mean Corpuscular HGB Conc 32.8 % (30-36); Mean Corpuscular Hemoglobin 33.6 PG (26-34); Mean Corpuscular Volume 102.3 fL (80-100); Monocytes Absolute Auto 700 /uL (0-900); Monocytes Percent Auto 11.9 % (3-14); Neutrophils Absolute Auto 3000 /uL (1500-7000); Neutrophils Percent Auto 52.3 % (50-75); Platelet Count 253 X10^3/uL (150-400); Red Blood Cell Count 4.02 X10^6/uL (4.0-5.2); Red Cell Distribution Width 13.2 % (11.6-14.8); White Blood Cell Count 5.8 X10^3/uL (4.5-11.0)
[2024-02-21 18:20] LABS: Alanine Aminotransferase 21 IU/L (<35); Albumin 4.1 g/dL (3.5-5.0); Albumin Globulin Ratio 1.3 (1.0-2.8); Alkaline Phosphatase 70 U/L (38-126); Aspartate Aminotransferase 30 IU/L (14-36); Bilirubin Total 0.4 mg/dL (0.2-1.3); Estimated Glomerular Filt Rate > 60 mL/min (>60); Globulin 3.1 g/dL (1.7-4.1); HEMOLYSIS < 15 (0-50); Total Protein 7.2 g/dL (6.3-8.2)
== END ==
PROVIDERS: PCP Internal Medicine; Referring Provider Internal Medicine Infectious Disease; Visit Provider Internal Medicine Infectious Disease
DX: T14.8XXA Other injury of unspecified body region, initial encounter (principal)
CPT/HCPCS: 36415; 80076; 82565; 85025

== ENCOUNTER → 2024-03-04 17:26 | Outpatient (CLI) | payer OTHER, SELFPAY ==
[2024-03-04 17:37] LABS: Appearance Urine UA CLEAR; Bilirubin Urine UA NEGATIVE (NEGATIVE); Color Urine UA YELLOW; Glucose Urine UA NEGATIVE (Negative); Ketones Urine UA NEGATIVE (NEGATIVE); Leukocyte Esterase Urine UA NEGATIVE (NEGATIVE); Nitrite Urine UA NEGATIVE (Negative); Occult Blood Urine UA NEGATIVE (Negative); Protein Urine UA NEGATIVE (Negative); Specific Gravity Urine UA 1.015 (1.000-1.035); Urobilinogen Urine UA 0.2 E.U./dL (0.2)
[2024-03-04 17:45] LABS: pH Urine UA 6.5 (4.5-8.0)
[2024-03-04 18:55] LABS: Bacteria Urine None Seen; Culture Indicated Urine Cult Not Indicated; RBC Urine None Seen (0-5/HPF); Squamous Epithelial Cell Urine None Seen (0-5/HPF); Urine Volume 10mL (spun); WBC Urine None Seen (0-5/HPF)
== END ==
LOC: LAB 17:27
PROVIDERS: PCP Internal Medicine; Referring Provider Obstetrics & Gynecology; Visit Provider Obstetrics & Gynecology
DX: R30.0 Dysuria (principal); R32 Unspecified urinary incontinence
CPT/HCPCS: 81001

== ENCOUNTER → 2024-03-05 14:40 | Outpatient (CLI) | payer OTHER, SELFPAY | LOC: WC 14:41 | PROVIDERS: PCP Internal Medicine; Referring Provider Internal Medicine; Visit Provider Surgery | DX: L97.322 Non-pressure chronic ulcer of left ankle with fat layer exposed (principal); I87.2 Venous insufficiency (chronic) (peripheral); L53.9 Erythematous condition, unspecified; R60.0 Localized edema; K75.4 Autoimmune hepatitis | CPT/HCPCS: 11042 ==

== ENCOUNTER → 2024-03-27 15:21 | Outpatient (CLI) | payer OTHER, SELFPAY | PROVIDERS: PCP Internal Medicine; Referring Provider Internal Medicine; Visit Provider Surgery | DX: L97.322 Non-pressure chronic ulcer of left ankle with fat layer exposed (principal); I87.2 Venous insufficiency (chronic) (peripheral); R60.0 Localized edema; L53.9 Erythematous condition, unspecified | CPT/HCPCS: 11042; 99213 ==

== ENCOUNTER → 2024-04-03 14:21 | Outpatient (CLI) | payer OTHER, SELFPAY | PROVIDERS: PCP Internal Medicine; Referring Provider Internal Medicine; Visit Provider Surgery | DX: L97.322 Non-pressure chronic ulcer of left ankle with fat layer exposed (principal); I87.2 Venous insufficiency (chronic) (peripheral); R60.0 Localized edema; L53.9 Erythematous condition, unspecified; M25.572 Pain in left ankle and joints of left foot; K75.4 Autoimmune hepatitis | CPT/HCPCS: 11042 ==

== ENCOUNTER → 2024-04-03 14:37 | Outpatient (CLI) | payer OTHER, SELFPAY ==
[2024-04-03 15:42] LABS: TSH w/ Reflex to FT4 0.42 uIU/mL (0.47-4.68)
[2024-04-03 20:11] LABS: Free T4, Direct Thyroxine 1.45 ng/dL (0.78-2.19)
== END ==
PROVIDERS: PCP Internal Medicine; Referring Provider Internal Medicine; Visit Provider Internal Medicine
DX: E03.9 Hypothyroidism, unspecified (principal); L97.322 Non-pressure chronic ulcer of left ankle with fat layer exposed; I87.2 Venous insufficiency (chronic) (peripheral); R60.0 Localized edema; L53.9 Erythematous condition, unspecified; M25.572 Pain in left ankle and joints of left foot; K75.4 Autoimmune hepatitis
CPT/HCPCS: 11042; 36415; 84439; 84443

== ENCOUNTER → 2024-04-10 13:37 | Outpatient (CLI) | payer OTHER, SELFPAY | LOC: WC 13:37 | PROVIDERS: PCP Internal Medicine; Referring Provider Internal Medicine; Visit Provider Surgery | DX: L97.322 Non-pressure chronic ulcer of left ankle with fat layer exposed (principal); I87.2 Venous insufficiency (chronic) (peripheral); R60.0 Localized edema; L53.9 Erythematous condition, unspecified; M25.572 Pain in left ankle and joints of left foot | CPT/HCPCS: 11042 ==

== ENCOUNTER → 2024-04-17 15:18 | Outpatient (CLI) | payer OTHER, SELFPAY | LOC: WC 15:18 | PROVIDERS: PCP Internal Medicine; Referring Provider Internal Medicine; Visit Provider Surgery | DX: L97.322 Non-pressure chronic ulcer of left ankle with fat layer exposed (principal); I87.2 Venous insufficiency (chronic) (peripheral); R60.0 Localized edema; L53.9 Erythematous condition, unspecified | CPT/HCPCS: 11042 ==

== ENCOUNTER → 2024-04-24 15:25 | Outpatient (CLI) | payer OTHER, SELFPAY | PROVIDERS: PCP Internal Medicine; Referring Provider Internal Medicine; Visit Provider Surgery | DX: L97.322 Non-pressure chronic ulcer of left ankle with fat layer exposed (principal); I87.2 Venous insufficiency (chronic) (peripheral); R60.0 Localized edema; L53.9 Erythematous condition, unspecified | CPT/HCPCS: 11042; 99213 ==

== ENCOUNTER → 2024-05-08 14:39 | Outpatient (CLI) | payer OTHER, SELFPAY | LOC: WC 14:39 | PROVIDERS: PCP Internal Medicine; Referring Provider Internal Medicine; Visit Provider Surgery | DX: L97.322 Non-pressure chronic ulcer of left ankle with fat layer exposed (principal); I87.2 Venous insufficiency (chronic) (peripheral); R60.0 Localized edema; L53.9 Erythematous condition, unspecified | CPT/HCPCS: 11042 ==

== ENCOUNTER → 2024-05-14 17:55 | Outpatient (CLI) | payer OTHER, SELFPAY ==
[2024-05-14 18:21] LABS: Appearance Urine UA CLEAR; Bilirubin Urine UA NEGATIVE (NEGATIVE); Color Urine UA YELLOW; Glucose Urine UA NEGATIVE (Negative); Ketones Urine UA NEGATIVE (NEGATIVE); Leukocyte Esterase Urine UA TRACE (NEGATIVE); Nitrite Urine UA POSITIVE (Negative); Occult Blood Urine UA NEGATIVE (Negative); Protein Urine UA NEGATIVE (Negative); Urobilinogen Urine UA 0.2 E.U./dL (0.2)
[2024-05-14 18:22] LABS: Add Manual Diff / Slide Review NO; Basophils Absolute Auto 0 /uL (0-100); Basophils Percent Auto 0.6 % (0-2); Eosinophils Absolute Auto 300 /uL (0-450); Eosinophils Percent Auto 6.5 % (2-4); Hematocrit 39.1 % (36-46); Hemoglobin 13.3 g/dL (12.0-16.0); Lymphocytes Absolute Auto 1100 /uL (1100-4500); Lymphocytes Percent Auto 21.3 % (25-40); Mean Corpuscular HGB Conc 33.9 % (30-36); Mean Corpuscular Hemoglobin 33.1 PG (26-34); Mean Corpuscular Volume 97.5 fL (80-100); Monocytes Absolute Auto 600 /uL (0-900); Monocytes Percent Auto 11.8 % (3-14); Neutrophils Absolute Auto 3100 /uL (1500-7000); Neutrophils Percent Auto 59.8 % (50-75); Platelet Count 299 X10^3/uL (150-400); Red Blood Cell Count 4.01 X10^6/uL (4.0-5.2); Red Cell Distribution Width 13.1 % (11.6-14.8); White Blood Cell Count 5.1 X10^3/uL (4.5-11.0)
[2024-05-14 18:24] LABS: Alanine Aminotransferase 25 IU/L (<35); Albumin Globulin Ratio 1.5 (1.0-2.8); Alkaline Phosphatase 99 U/L (38-126); Aspartate Aminotransferase 33 IU/L (14-36); Bilirubin Total 0.4 mg/dL (0.2-1.3); Bilirubin Unconjugated 0.2 mg/dL (0.0-1.1); Globulin 2.7 g/dL (1.7-4.1); HEMOLYSIS < 15 (0-50); Total Protein 6.7 g/dL (6.3-8.2)
[2024-05-14 18:59] LABS: Urine Volume 10mL (spun); pH Urine UA 7.5 (4.5-8.0)
[2024-05-14 19:00] LABS: Bacteria Urine Many (>30); Culture Indicated Urine Specimen Cultured; RBC Urine None Seen (0-5/HPF); Squamous Epithelial Cell Urine 1-5 /HPF (0-5/HPF); WBC Urine 10-30/HPF (0-5/HPF)
== END ==
LOC: LAB 17:56
PROVIDERS: PCP Internal Medicine; Referring Provider Internal Medicine; Visit Provider Internal Medicine
DX: N39.0 Urinary tract infection, site not specified (principal); R35.0 Frequency of micturition
CPT/HCPCS: 36415; 80076; 81001; 85025; 87086

== ENCOUNTER → 2024-05-15 13:48 | Outpatient (CLI) | payer OTHER, SELFPAY | LOC: WC 13:49 | PROVIDERS: PCP Internal Medicine; Referring Provider Internal Medicine; Visit Provider Surgery | DX: L97.322 Non-pressure chronic ulcer of left ankle with fat layer exposed (principal); I87.2 Venous insufficiency (chronic) (peripheral); L53.9 Erythematous condition, unspecified; R60.0 Localized edema | CPT/HCPCS: 11042 ==

== ENCOUNTER → 2024-05-21 14:42 | Outpatient (CLI) | payer OTHER, SELFPAY | LOC: WC 14:42 | PROVIDERS: PCP Internal Medicine; Referring Provider Internal Medicine; Visit Provider Surgery | DX: L97.322 Non-pressure chronic ulcer of left ankle with fat layer exposed (principal); I87.2 Venous insufficiency (chronic) (peripheral); R60.0 Localized edema; L53.9 Erythematous condition, unspecified | CPT/HCPCS: 11042; 99213 ==

== ENCOUNTER → 2024-05-29 14:05 | Outpatient (CLI) | payer OTHER, SELFPAY | LOC: WC 14:06 | PROVIDERS: PCP Internal Medicine; Referring Provider Internal Medicine; Visit Provider Physician Assistant | DX: L97.322 Non-pressure chronic ulcer of left ankle with fat layer exposed (principal); I87.2 Venous insufficiency (chronic) (peripheral); R60.0 Localized edema; L53.9 Erythematous condition, unspecified; K75.4 Autoimmune hepatitis; Z79.620 Long term (current) use of immunosuppressive biologic | CPT/HCPCS: 11042; 87070; 87075; 87077; 87186; 87205; 99214 ==

== ENCOUNTER → 2024-06-05 14:43 | Outpatient (CLI) | payer OTHER, SELFPAY | PROVIDERS: PCP Internal Medicine; Referring Provider Internal Medicine; Visit Provider Surgery | DX: I87.2 Venous insufficiency (chronic) (peripheral) (principal); L97.322 Non-pressure chronic ulcer of left ankle with fat layer exposed; L53.8 Other specified erythematous conditions; R60.0 Localized edema | CPT/HCPCS: 11042 ==

== ENCOUNTER → 2024-06-07 17:54 | Outpatient (CLI) | payer OTHER, SELFPAY | PROVIDERS: PCP Internal Medicine; Visit Provider Registered Nurse | DX: R30.0 Dysuria (principal); R35.0 Frequency of micturition; R39.15 Urgency of urination | CPT/HCPCS: 87086 ==

== ENCOUNTER → 2024-06-12 14:51 | Outpatient (CLI) | payer OTHER, SELFPAY | PROVIDERS: PCP Internal Medicine; Referring Provider Internal Medicine; Visit Provider Surgery | DX: L97.322 Non-pressure chronic ulcer of left ankle with fat layer exposed (principal); I87.2 Venous insufficiency (chronic) (peripheral); R60.0 Localized edema; L53.9 Erythematous condition, unspecified; K75.4 Autoimmune hepatitis | CPT/HCPCS: 11042 ==

== ENCOUNTER → 2024-06-25 14:18 | Outpatient (CLI) | payer OTHER, SELFPAY | PROVIDERS: PCP Internal Medicine; Referring Provider Internal Medicine; Visit Provider Physician Assistant | DX: L97.322 Non-pressure chronic ulcer of left ankle with fat layer exposed (principal); I87.2 Venous insufficiency (chronic) (peripheral); R60.0 Localized edema; K75.4 Autoimmune hepatitis | CPT/HCPCS: 11042; 87070; 87075; 87205 ==

== ENCOUNTER → 2024-06-30 14:21 | Outpatient (CLI) | payer OTHER, SELFPAY ==
[2024-06-30 14:40] LABS: Appearance Urine UA CLEAR; Bilirubin Urine UA NEGATIVE (NEGATIVE); Color Urine UA YELLOW; Glucose Urine UA NEGATIVE (Negative); Ketones Urine UA NEGATIVE (NEGATIVE); Leukocyte Esterase Urine UA TRACE (NEGATIVE); Nitrite Urine UA POSITIVE (Negative); Occult Blood Urine UA NEGATIVE (Negative); Protein Urine UA NEGATIVE (Negative); Specific Gravity Urine UA >=1.030 (1.000-1.035); Urobilinogen Urine UA 0.2 E.U./dL (0.2)
[2024-06-30 14:45] LABS: pH Urine UA 5.5 (4.5-8.0)
[2024-06-30 14:49] LABS: Bacteria Urine Many (>30); Culture Indicated Urine Specimen Cultured; RBC Urine None Seen (0-5/HPF); Squamous Epithelial Cell Urine None Seen (0-5/HPF); Urine Volume 10mL (spun); WBC Urine 1-5/HPF (0-5/HPF)
== END ==
PROVIDERS: PCP Internal Medicine; Referring Provider Obstetrics & Gynecology; Visit Provider Obstetrics & Gynecology
DX: R30.0 Dysuria (principal)
CPT/HCPCS: 81001; 87077; 87086; 87186

== ENCOUNTER → 2024-07-02 15:19 | Outpatient (CLI) | payer OTHER, SELFPAY | PROVIDERS: PCP Internal Medicine; Referring Provider Internal Medicine; Visit Provider Surgery | DX: L97.322 Non-pressure chronic ulcer of left ankle with fat layer exposed (principal); I87.2 Venous insufficiency (chronic) (peripheral); L53.9 Erythematous condition, unspecified; R60.0 Localized edema; K75.4 Autoimmune hepatitis | CPT/HCPCS: 11042 ==

== ENCOUNTER → 2024-07-17 14:57 | Outpatient (CLI) | payer OTHER, SELFPAY | PROVIDERS: PCP Internal Medicine; Referring Provider Internal Medicine; Visit Provider Surgery | DX: I87.2 Venous insufficiency (chronic) (peripheral) (principal); L97.322 Non-pressure chronic ulcer of left ankle with fat layer exposed; R60.0 Localized edema; L53.9 Erythematous condition, unspecified; M25.572 Pain in left ankle and joints of left foot | CPT/HCPCS: 11042 ==

== ENCOUNTER 2024-07-24 18:28 | Emergency (ER) | payer OTHER, SELFPAY ==
[2024-07-24 18:48] VITALS: BP 137/64; PULSE 90; RESP 18; TEMP 36.6; O2SAT 98; BMI 23.4
--- NOTE | 2024-07-24 21:18 | ED_ITS ---
HPI - Wound/Laceration General Chief Complaint: Wound/Laceration Stated Complaint: sore on lt ankle Time Seen by Provider: 07/24/24 21:00 Source: patient Mode of arrival: Ambulatory History of Present Illness HPI narrative: Patient is a 74-year-old female who is here for evaluation of a sore on her left ankle. She states she was had a chronic wound in this area for the past couple years. She was scheduled to see vascular surgery next month. She was also under the care of wound care. Not currently on antibiotics. Over the past couple days has noticed an increase in redness and discomfort over the area. No fevers. No drainage. Related Data Home Medications Medication Instructions Recorded Confirmed budesonide 3 mg 3 mg PO DAILY 04/16/19 06/07/24 capsule,delayed,extended release multivitamin 1 tab PO DAILY 08/31/22 06/07/24 mycophenolate sodium 360 mg 360 mg PO Q12H 08/31/22 06/07/24 tablet,delayed release tramadol 50 mg tablet 50 mg PO DAILY PRN 08/31/22 06/07/24 doxycycline hyclate 100 mg capsule 100 mg PO BID 01/23/24 06/07/24 Previous Rx's Medication Instructions Recorded bupropion HCl 150 mg tablet,12 hr 150 mg PO QAM #90 ea 11/02/22 sustained-release rosuvastatin 5 mg tablet 5 mg PO DAILY #90 tabs 06/25/23 venlafaxine 150 mg 150 mg PO DAILY #90 caps 06/25/23 capsule,extended release 24 hr acyclovir 400 mg tablet 400 mg PO BID #180 tabs 08/23/23 estradiol 0.5 mg tablet See Rx Instructions .Route 11/13/23 .COMPLEX #90 tabs Synthroid 125 mcg tablet 125 mcg PO DAILY #90 tabs 01/23/24 (levothyroxine) oxybutynin chloride 10 mg 10 mg PO DAILY for bladder muscle 02/04/24 tablet,extended release 24 hr dysfunction #90 tabs celecoxib 200 mg capsule 200 mg PO DAILY #90 caps 04/01/24 omeprazole 20 mg capsule,delayed 20 mg PO BID #180 caps 04/08/24 release Allergies Allergy/AdvReac Type Severity Reaction Status Date / Time Penicillins Allergy Mild RASH Verified 06/07/24 17:52 ertapenem AdvReac Severe Seizure Verified 06/07/24 17:52 Review of Systems Review of Systems ROS Unobtainable: All systems reviewed & are unremarkable except as noted in HPI and below Patient History Medical History Ulcer of left ankle Ankle osteomyelitis, left Cervical myelopathy with cervical radiculopathy Cervical radiculopathy, chronic Osteopenia after menopause 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 Microscopic colitis Generalized anxiety disorder Depression, major, recurrent Acquired hypothyroidism Mixed hyperlipidemia Rosacea Scoliosis Chronic back pain Cervical spine disease Graves disease Recurrent UTI Postmenopausal hormone replacement therapy Cystocele Surgical History History of tonsillectomy Status post laparoscopic supracervical hysterectomy Family History Brother Mental health problem Alcoholic Cancer Cirrhosis Father Alcoholic Diabetes mellitus Cirrhosis Mother Mental health problem Alcoholic Sister Cancer Social History Smoking Status: Never smoker Smoking Status: Never smoker alcohol intake frequency: holidays/special occasions only Exam Initial Vital Signs Initial Vital Signs: Vital Signs Temperature 97.8 F 07/24/24 18:48 Pulse Rate 90 07/24/24 18:48 Respiratory Rate 18 07/24/24 18:48 Blood Pressure 137/64 07/24/24 18:48 Pulse Oximetry 98 07/24/24 18:48 Oxygen Delivery Method Room Air 07/24/24 18:48 Const General: cooperative and comfortable Skin Other: Patient has a 2 cm x 2 cm wound on her left ankle. Minimal ulceration. Some surrounding erythema. It was tender to palpation. No vesicles. No pustules. There was no streaking around the area. Extrem Other: Full range of motion of the left ankle. Course Orders Ordered: ED Orders 07/24/24 21:18 Wound Culture and Gram Stain Stat Vital Signs Vital signs: Vital Signs - 8 hr 07/24/24 21:31 Pulse Rate 92 H Respiratory Rate 16 Blood Pressure 174/96 H Pulse Oximetry 97 Oxygen Delivery Method Room Air MDM - Wound/Laceration MDM Narrative Medical decision making narrative: A wound culture was obtained but the patient states she was had wound cultures in the past and they all have not grown any bacteria. She has a picture from the wound for approximately 1 week ago at an actually appears better today than what it did at that time. We discussed potentially starting her on topical antibiotics and waiting for the wound culture however she would like to wait and talk with her ear nose and throat specialist before starting any antibiotics. No indication for admission to the hospital or blood work today. Will discharge home with return precautions. She expressed understanding and agreement with plan. Discharge Plan Departure Patient Disposition: Home Clinical Impression: Ankle wound Instructions: Skin Wound Activity Restrictions/Additional Instructions: A wound culture was pending at the time of your discharge. I do recommend you contact the wound care provider that you are following for a follow-up next week. Return to the emergency department for new or worsening symptoms. Prescriptions: No Action venlafaxine 150 mg capsule,extended release 24hr 150 mg PO DAILY Qty: 90 3RF rosuvastatin 5 mg tablet 5 mg PO DAILY Qty: 90 3RF acyclovir 400 mg tablet 400 mg PO BID Qty: 180 3RF estradiol 0.5 mg tablet See Rx Instructions .ROUTE .COMPLEX Qty: 90 4RF Dose Instruction: TAKE 1 TABLET BY MOUTH EVERY DAY FOR HORMONE REPLACEMENT Rx Instructions: TAKE 1 TABLET BY MOUTH EVERY DAY FOR HORMONE REPLACEMENT oxybutynin chloride 10 mg tablet extended release 24hr 10 mg PO DAILY Qty: 90 3RF celecoxib 200 mg capsule 200 mg PO DAILY Qty: 90 3RF omeprazole 20 mg capsule,delayed release(DR/EC) 20 mg PO BID Qty: 180 3RF bupropion HCl 150 mg tablet sustained-release 12 hr 150 mg PO QAM Qty: 90 3RF doxycycline hyclate 100 mg capsule 100 mg PO BID levothyroxine [Synthroid] 125 mcg tablet 125 mcg PO DAILY Qty: 90 3RF Rx Instructions: brand-name only budesonide 3 mg capsule,delayed,extend.release 3 mg PO DAILY mycophenolate sodium 360 mg tablet,delayed release (DR/EC) 360 mg PO Q12H tramadol 50 mg tablet 50 mg PO DAILY PRN multivitamin Tablet 1 tab PO DAILY Referrals: Abdiel Kang MD [Primary Care Provider] - Stand Alone Forms: Patient Portal/API/Survey
[2024-07-24 21:31] VITALS: BP 174/96; PULSE 92; RESP 16; O2SAT 97
== END 2024-07-24 21:32 | disposition home or self-care (01) ==
PROVIDERS: Emergency Provider Emergency Medicine; PCP Internal Medicine
DX: L97.529 Non-pressure chronic ulcer of other part of left foot with unspecified severity (principal)
CPT/HCPCS: 81003; 87070; 87077; 87205; 99282

== ENCOUNTER → 2024-07-31 13:39 | Outpatient (CLI) | payer OTHER, SELFPAY | PROVIDERS: PCP Internal Medicine; Referring Provider Internal Medicine; Visit Provider Surgery | DX: L97.322 Non-pressure chronic ulcer of left ankle with fat layer exposed (principal); I87.2 Venous insufficiency (chronic) (peripheral); L53.9 Erythematous condition, unspecified; R60.0 Localized edema; M25.572 Pain in left ankle and joints of left foot | CPT/HCPCS: 11042 ==

== ENCOUNTER → 2024-08-07 11:49 | Outpatient (CLI) | payer OTHER, SELFPAY | PROVIDERS: PCP Internal Medicine; Referring Provider Internal Medicine; Visit Provider Surgery | DX: L97.322 Non-pressure chronic ulcer of left ankle with fat layer exposed (principal); I87.2 Venous insufficiency (chronic) (peripheral); R60.0 Localized edema; L53.9 Erythematous condition, unspecified; K75.4 Autoimmune hepatitis | CPT/HCPCS: 11042; 99213 ==

== ENCOUNTER → 2024-08-14 14:36 | Outpatient (CLI) | payer OTHER, SELFPAY | PROVIDERS: PCP Internal Medicine; Referring Provider Internal Medicine; Visit Provider Surgery | DX: L97.322 Non-pressure chronic ulcer of left ankle with fat layer exposed (principal); I87.2 Venous insufficiency (chronic) (peripheral); L53.9 Erythematous condition, unspecified; R60.0 Localized edema; K75.4 Autoimmune hepatitis | CPT/HCPCS: 11042 ==

== ENCOUNTER → 2024-08-21 14:27 | Outpatient (CLI) | payer OTHER, SELFPAY | LOC: WC 14:28 | PROVIDERS: PCP Internal Medicine; Referring Provider Internal Medicine; Visit Provider Surgery | DX: L97.322 Non-pressure chronic ulcer of left ankle with fat layer exposed (principal); I87.2 Venous insufficiency (chronic) (peripheral); K75.4 Autoimmune hepatitis; L53.8 Other specified erythematous conditions | CPT/HCPCS: 11042; 87070; 87075; 87077; 87147; 87186; 87205 ==

== ENCOUNTER → 2024-08-27 14:30 | Outpatient (CLI) | payer OTHER, SELFPAY | LOC: WC 14:32 | PROVIDERS: PCP Internal Medicine; Referring Provider Internal Medicine; Visit Provider Surgery | DX: I87.2 Venous insufficiency (chronic) (peripheral) (principal); L97.322 Non-pressure chronic ulcer of left ankle with fat layer exposed; R60.0 Localized edema; L53.8 Other specified erythematous conditions; R21 Rash and other nonspecific skin eruption | CPT/HCPCS: 11042; 99213 ==

== ENCOUNTER → 2024-09-04 14:43 | Outpatient (CLI) | payer OTHER, SELFPAY | LOC: WC 14:56 | PROVIDERS: PCP Internal Medicine; Referring Provider Internal Medicine; Visit Provider Surgery | DX: I87.2 Venous insufficiency (chronic) (peripheral) (principal); L97.322 Non-pressure chronic ulcer of left ankle with fat layer exposed; B35.9 Dermatophytosis, unspecified; L53.8 Other specified erythematous conditions; R60.0 Localized edema; R21 Rash and other nonspecific skin eruption | CPT/HCPCS: 11042; 99212; 99213 ==

== ENCOUNTER → 2024-09-11 14:10 | Outpatient (CLI) | payer OTHER, SELFPAY | LOC: WC 14:12 | PROVIDERS: PCP Internal Medicine; Referring Provider Internal Medicine; Visit Provider Surgery | DX: L97.322 Non-pressure chronic ulcer of left ankle with fat layer exposed (principal); I87.2 Venous insufficiency (chronic) (peripheral); B35.9 Dermatophytosis, unspecified; L53.9 Erythematous condition, unspecified; R60.0 Localized edema; M25.572 Pain in left ankle and joints of left foot | CPT/HCPCS: 11042 ==

== ENCOUNTER → 2024-09-15 15:16 | Outpatient (CLI) | payer OTHER, SELFPAY | LOC: WC 15:17 | PROVIDERS: PCP Internal Medicine; Referring Provider Internal Medicine; Visit Provider Surgery | DX: L98.8 Other specified disorders of the skin and subcutaneous tissue (principal); S91.002A Unspecified open wound, left ankle, initial encounter; R60.0 Localized edema; L53.9 Erythematous condition, unspecified; R21 Rash and other nonspecific skin eruption | CPT/HCPCS: 29580 ==

== ENCOUNTER → 2024-09-18 13:48 | Outpatient (CLI) | payer OTHER, SELFPAY | LOC: WC 13:50 | PROVIDERS: PCP Internal Medicine; Referring Provider Internal Medicine; Visit Provider Surgery | DX: L97.322 Non-pressure chronic ulcer of left ankle with fat layer exposed (principal); I87.2 Venous insufficiency (chronic) (peripheral); R60.0 Localized edema; B35.9 Dermatophytosis, unspecified; L53.9 Erythematous condition, unspecified | CPT/HCPCS: 11042 ==

== ENCOUNTER → 2024-09-22 15:09 | Outpatient (CLI) | payer OTHER, SELFPAY | PROVIDERS: PCP Internal Medicine; Referring Provider Internal Medicine; Visit Provider Surgery | DX: S91.002A Unspecified open wound, left ankle, initial encounter (principal); R60.0 Localized edema; L53.8 Other specified erythematous conditions; R21 Rash and other nonspecific skin eruption | CPT/HCPCS: 99212 ==

== ENCOUNTER → 2024-09-25 13:45 | Outpatient (CLI) | payer OTHER, SELFPAY ==
--- NOTE | 2024-09-25 | OV.WND_ITS ---
PROGRESS NOTE DETAILS PATIENT NAME: ELISSA GALLEGOS PATIENT NUMBER: [id number] CLINICIAN: MARIAM CUEVAS PATIENT DATE OF : 1950 PHYSICIAN / AGENT PRODUCER: RAHEEM PETERSON PATIENT SUBJECTIVE CHIEF COMPLAINT THIS INFORMATION WAS OBTAINED FROM THE PATIENT. MORE PAIN ALLERGIES PENICILLIN (SEVERITY: MODERATE, REACTION: BODY RASH) HPI THIS INFORMATION WAS OBTAINED FROM THE PATIENT. THE FOLLOWING HPI ELEMENTS WERE DOCUMENTED FOR THE PATIENT'S WOUND: LOCATION: L ANKLE DURATION: 02/27/23 CONTEXT: VENOUS THE PATIENT IS A 74 YEAR OLD FEMALE WITH HISTORY OF AUTO IMMUNE HEPATITIS WHO RETURNS TODAY FOR FOLLOW UP OF AN ULCER OF THE MEDIAL LEFT ANKLE. THE PATIENT IS RECEIVING DRESSING CHANGES WITH URGO CLEAN WITH TUBIGRIP FOR COMPRESSION AND IS APPLYING CLOTRIMAZOLE TO THE PERIWOUND SKIN. SHE RECENTLY COMPLETED A COURSE OF DOXYCYCLINE. THE PATIENT REPORTS LESS PERIWOUND ITCHING AND PAIN IS SLIGHTLY WORSE. THE PATIENT REPORTS A GOOD APPETITE AND DENIES HAVING ANY RECENT CHANGES IN HER OVERALL HEALTH. ON EXAM TODAY THE ULCER MEASUREMENTS ARE SLIGHTLY LARGER BUT THE TISSUE QUALITY IS CONTINUING TO IMPROVE. PERIWOUND FUNGAL RASH IS IMPROVED. MRI 07/10/23 SHOWED EVIDENCE FOR CELLULITIS BUT NO EVIDENCE FOR OSTEOMYELITIS. VENOUS ULTRASOUND SHOWED NO EVIDENCE FOR REFLUX. BONE SCAN REPORTEDLY DID NOT SHOW ANY EVIDENCE FOR OSTEOMYELITIS. THE PATIENT WAS PREVIOUSLY RECEIVING IV ERTAPENEM UNDER THE CARE OF DR. GANDARA HOWEVER IT WAS DISCONTINUED WHEN SHE LOST CONSCIOUSNESS. SHE THEN COMPLETED A COURSE OF CEFADROXIL. THE PATIENT DID NOT HAVE ANY SIGNIFICANT IMPROVEMENT WITH ANTIBIOTIC THERAPY. THE PATIENT IS ON CHRONIC IMMUNE SUPPRESSION FOR TREATMENT OF HER AUTO IMMUNE HEPATITIS. A BIOPSY WAS PERFORMED AND REVEALED FIBROSIS AND REACTIVE INFLAMMATION AND SQUAMOUS ATYPIA. REPEAT BIOPSY REVEALED CUTANEOUS ULCER WITH STASIS CHANGES AND DERMAL FIBROSIS. THE PATIENT UNDERWENT VEIN ABLATION OF LEFT LOWER EXTREMITY ON AUGUST 19, 2024. TREATMENT HAS BEEN COMPLICATED BY HER INTOLERANCE TO A VARIETY OF WOUND CARE PRODUCTS AND COMPRESSION HOWEVER THE PATIENT IS NOW WILLING TO TRY COMPRESSION AGAIN. THE PATIENT HAS RECEIVED THE VELCRO WRAPS. LABS: 08/21/24: CULTURE GREW STAPHYLOCOCCUS AUREUS 07/24/24: CULTURE GREW ACINETOBACTER 06/25/24: CULTURE GREW LIGHT GROWTH MIXED SKIN REGIS 05/29/24: CULTURE GREW SCANT STAPHYLOCOCCUS CAPITIS 05/14/24: WBC 5.1, HEMOGLOBIN 13.3, HCT 39.1, 2 LFTS NORMAL 01/17/24: BIOPSY REVEALED CUTANEOUS ULCER WITH STASIS CHANGES AND DERMAL FIBROSIS, NO NEOPLASM 12/11/23: WBC 6.8, HGB 12.8, HCT 37.8, ELECTROLYTES NORMAL, GFR GREATER THAN 60, LFTS NORMAL 10/22/23: CULTURE GREW ENTEROBACTER CLOACAE COMPLEX ELISSA GALLEGOS [id number] 1950 10/10/23: ANKLE MRI SHOWS EVIDENCE FOR SKIN ULCERATION AND SURROUNDING CELLULITIS, NO EVIDENCE FOR OSTEOMYELITIS 07/10/23: ANKLE MRI SHOWS EVIDENCE FOR CELLULITIS, NO ABSCESS OR OSTEOMYELITIS 06/07/23: CULTURE GREW STAPHYLOCOCCUS AUREUS 05/21/23: WBC 5.3, HEMOGLOBIN 12.9, HCT 37.5 05/02/23: CULTURE GREW LISA ALBICANS 05/02/23: X-RAY LEFT ANKLE SHOWED SOFT TISSUE SWELLING 03/01/23: WBC 5.9, HEMOGLOBIN 11.4, HCT 32.9, NORMAL ELECTROLYTES, GFR GREATER THAN 60, LFTS NORMAL MEDICAL HISTORY THIS INFORMATION WAS OBTAINED FROM THE PATIENT. PATIENT HAS A MEDICAL HISTORY OF: HYPOTHYROIDISM (SECONDARY TO MAYER FOR GRAVES DISEASE) HYPERLIPIDEMIA GASTRO ESOPH. REFLUX DISEASE (GERD) OSTEOARTHRITIS RESTLESS LEG SYNDROME DEPRESSION AUTOIMMUNE HEPATITIS ANKYLOSING SPONDYLITIS C4-C5 DISC COMPRESSION LYMPHOCYTIC COLITIS HERPES KERATITIS CYSTOCELE GRAVES DISEASE ANXIETY ADDITIONAL INFORMATION DOES PATIENT HAVE A HISTORY OF CANCER? YES? COMPLETE ALL QUESTIONS.: YES LOCATION OF CANCER: SKIN CANCER SURGICAL HISTORY THIS INFORMATION WAS OBTAINED FROM THE PATIENT. PATIENT HAS A SURGICAL HISTORY OF: PARTIAL HYSTERECTOMY- TONSILLECTOMY- BUNIONECTOMY- RIGHT SHOULDER ACROMIOPLASTY- BONE SPUR- AMPUTATION- (LEFT 2ND AND 3RD TOES- HAMMER TOE DEFORMATION) CYSTOCELE REPAIR- EYELID SURGERY- DEVIATED SEPTUM REPAIR- OBJECTIVE VITALS HEIGHT/LENGTH: 60 IN (152.4 CM), WEIGHT: 117.1 LBS (53.23 KGS), BMI: 22.9, TEMPERATURE: 98.2 ?F (36.78 ?C), PULSE: 92 BPM, RESPIRATORY RATE: 16 BREATHS/MIN, BLOOD PRESSURE: 152/81 MMHG, PULSE ELISSA GALLEGOS [id number] 1950 OXIMETRY: 98 %. PHYSICAL EXAM CONSTITUTIONAL: VITAL SIGNS REVIEWED AND NOTED. WELL DEVELOPED, WELL NOURISHED, AND IN NO ACUTE DISTRESS. ALERT AND ORIENTED X3. RESPIRATORY: EVEN RESPIRATIONS WITHOUT USE OF ACCESSORY MUSCLES. NO INTERCOASTAL RETRACTIONS NOTED. EVEN AND NON LABORED RESPIRATION. INTEGUMENTARY (HAIR, SKIN): MILD PERIWOUND SKIN IRRITATION. PERIWOUND TENDERNESS. SEE WOUND ASSESSMENT. SKIN WARM AND DRY. PERIWOUND FUNGAL RASH IMPROVED. NEUROLOGICAL: SENSATION: SYMMETRIC FUNCTION BY INFORMAL OBSERVATION. PSYCHIATRIC: ORIENTATION TO TIME, PLACE AND PERSON: NORMAL AFFECT WITH NORMAL THOUGHT PATTERN. ADDITIONAL INFORMATION THE PATIENT'S POTENTIAL TO HEAL IS: POOR. WOUND ASSESSMENT(S) WOUND #2 LEFT, MEDIAL ANKLE IS A CHRONIC FULL THICKNESS INFECTIOUS ACQUIRED ON 02/27/2023 AND HAS RECEIVED A STATUS OF NOT HEALED. INITIAL WOUND ENCOUNTER MEASUREMENTS ARE 3.6CM LENGTH X 2.6CM WIDTH X 0.2 CM DEPTH, WITH AN AREA OF 9.36 SQ CM AND A VOLUME OF 1.872 CUBIC CM.INITIAL WOUND ENCOUNTER PREVIOUS MEASUREMENTS FROM 09/22/2024 ARE 3.6CM LENGTH X 2.5CM WIDTH X 0.3CM DEPTH, WITH AN AREA OF 9 SQ CM AND A VOLUME OF 2.7 CUBIC CM. ADIPOSE IS EXPOSED. HYPERGRANULATION WAS NOTED. NO TUNNELING HAS BEEN NOTED. NO SINUS TRACT HAS BEEN NOTED. NO UNDERMINING HAS BEEN NOTED. THERE IS A MODERATE AMOUNT OF SEROSANGUINEOUS DRAINAGE NOTED WHICH HAS NO ODOR. THE PATIENT REPORTS A WOUND PAIN OF LEVEL 4/10. THE WOUND MARGIN IS ATTACHED WOUND BED HAS YES, PINK, FIRM, GRANULATION, YES SLOUGH, NO ESCHAR, NO EPITHELIALIZATION. THE PERIWOUND SKIN EXHIBITED EDEMA, RASH, ATROPHIE DIOGENES AND ERYTHEMA. THE PERIWOUND SKIN DID NOT EXHIBIT BRAWNY INDURATION, EXCORIATION, INDURATION, CALLUS, CREPITUS, FLUCTUANCE, MACERATION, CYANOSIS, ECCHYMOSIS, HEMOSIDEROSIS, PALLOR AND RUBOR. THE PERIWOUND SKIN WAS MOIST. THE PERIWOUND SKIN WAS NOT FRIABLE AND DRY/SCALY. THE TEMPERATURE OF THE PERIWOUND SKIN IS WNL. PERIWOUND SKIN DOES NOT EXHIBIT SIGNS OR SYMPTOMS OF INFECTION. LOCAL PULSE IS PALPABLE. ADDITIONAL INFORMATION OTHER DEVITALIZED TISSUE PRESENT: BIOFILM ASSESSMENT ACTIVE PROBLEMS ICD-10 (ENCOUNTER DIAGNOSIS) I87.2 - VENOUS INSUFFICIENCY (CHRONIC) (PERIPHERAL) (ENCOUNTER DIAGNOSIS) L97.322 - NON-PRESSURE CHRONIC ULCER OF LEFT ANKLE WITH FAT LAYER EXPOSED (ENCOUNTER DIAGNOSIS) B35.9 - DERMATOPHYTOSIS, UNSPECIFIED GENERAL NOTES ULCER MEDIAL LEFT ANKLE, MEASUREMENTS SLIGHTLY LARGER BUT TISSUE QUALITY IS CONTINUING TO IMPROVE, PERIWOUND FUNGAL RASH IMPROVED THE FOLLOWING FACTORS HAVE BEEN IDENTIFIED THAT MAY AFFECT WOUND HEALING: DEVITALIZED TISSUE BIOFILM INFECTION VENOUS INSUFFICIENCY ELISSA GALLEGOS [id number] 1950 GOALS: REMOVED DEVITALIZED TISSUE REMOVE AND PREVENT BIOFILM TREAT INFECTION WOUND CLOSURE REDUCE SWELLING PLAN: DEBRIDEMENT, CLOTRIMAZOLE THE PERIWOUND SKIN WITH EACH DRESSING CHANGE, CONTINUE DRESSING CHANGES WITH URGO CLEAN AND USE VELCRO WRAPS FOR COMPRESSION. CONTINUE SOCORRO. FOLLOW UP IN 1 WEEK FOR A RECHECK. PROCEDURES WOUND #2 WOUND #2 (INFECTIOUS) IS LOCATED ON THE LEFT, MEDIAL ANKLE. A SKIN/SUBCUTANEOUS TISSUE LEVEL SURGICAL DEBRIDEMENT WITH A TOTAL AREA DEBRIDED OF 9.36 SQ CM. WAS PERFORMED BY RAHEEM PETERSON MD. SUBCUTANEOUS WAS REMOVED ALONG WITH DEVITALIZED TISSUE: BIOFILM, EXUDATE AND SLOUGH. THE FOLLOWING INSTRUMENT(S) WERE USED: CURETTE. PAIN CONTROL WAS ACHIEVED USING EMLA LIDOCAINE/PRILOCAINE 2.5%/2.5%. A TIME OUT WAS CONDUCTED PRIOR TO THE START OF THE PROCEDURE. A MINIMAL AMOUNT OF BLEEDING WAS CONTROLLED WITH PRESSURE. THE PROCEDURE WAS TOLERATED WELL WITH A PAIN LEVEL OF 0 THROUGHOUT AND A PAIN LEVEL OF 0 FOLLOWING THE PROCEDURE. POST DEBRIDEMENT MEASUREMENTS: 3.6CM LENGTH X 2.6CM WIDTH X 0.3CM DEPTH; WITH AN AREA OF 9.36 SQ CM AND A VOLUME OF 2.808 CUBIC CM. ADDITIONAL INFORMATION MUSCLE FASCIA OR BONE REMOVED AND SENT TO PATHOLOGY?: NO PLAN WOUND ORDERS: WOUND #2 LEFT, MEDIAL ANKLE CLEANSER CLEANSE WOUND WITH NORMAL SALINE APPLY HYPOCHLOROUS ACID (VASHE OR SIMILAR) SOAKED 4X4 GAUZE TO WOUND BED FOR 5- 10 MINUTES AFTER PROVIDER HAS COMPLETED WOUND EXAM. REMOVE GAUZE AND DRESS WOUND ACCORDING TO DRESSING ORDERS. PROCEDURE / ANESTHETIC 4% TOPICAL LIDOCAINE TO WOUND BED PRIOR TO PROCEDURE, IN CLINIC ONLY. DRESSING ORDERS APPLY DRESSING(S) AND SECURE WITH: - URGOCLEAN AG. AQUACEL TO BOLSTER. MEXTRA TO COVER. DRESSING CHANGE FREQUENCY CHANGE DRESSING EVERY OTHER DAY. ADDITIONAL ORDERS: TOPICAL TREATMENTS OTHER ORDER: - LOTRISONE AND BAG BALM COMPRESSION/EDEMA CONTROL ELEVATE LEG(S) ABOVE THE LEVEL OF THE HEART MUCH POSSIBLE. AVOID STANDING IN ONE POSITION FOR MORE THAN 10 MINUTES. AVOID SITTING WITH LEGS DOWN. DO NOT CROSS LEGS WHEN SITTING. APPLY MULTI LAYER WRAP TO AFFECTED LEG(S) AT 20-30MMHG. - FARROW WRAP TO LEFT LEG DIETARY TAKE VITAMIN C 1000MG BY MOUTH DAILY. TAKE ZINC 25MG BY MOUTH DAILY. ELISSA GALLEGOS [id number] 1950 INCREASE THE PROTEIN IN YOUR DIET. FOLLOW-UP APPOINTMENTS RETURN APPOINTMENT 1 WEEK - SUNDAY FOR MD VISITS. SCRIBING ATTESTATION I ATTEST, THE NURSE, THAT I SCRIBED THESE ORDERS FOR THE WOUND CARE PROVIDER. PROVIDER REVIEW AND ATTESTATION: REVIEWED AND EVALUATED LABS. REVIEWED HOSPITAL RECORDS. DISCUSSED THE PLAN OF CARE @ BEDSIDE WITH - THE PATIENT I AGREE AND ATTEST TO THE ABOVE INFORMATION PROVIDED FROM OTHER LICENSED PROFESSIONALS. PLAN OF CARE: 01. ENSURE/ESTABLISH OPTIMAL BLOOD FLOW : - COMPLETE LOWER EXTREMITY ASSESSMENT STATUS: CONTINUED DATE: 09/04/2024 - PERFORM NON-INVASIVE VASCULAR TESTING (I.E. BETH) AND DOCUMENT FINDINGS. CONSIDER REPEATING WHEN WOUND HEALING <40% AFTER 30 DAYS OF WOUND CARE. STATUS: COMPLETED DATE: 09/04/2024 - ORDER VASCULAR CONSULT FOR EVALUATION/TREATMENT AND/OR NON-INVASIVE VASCULAR TESTING. STATUS: COMPLETED DATE: 09/04/2024 02. ASSESS FOR/TREAT INFECTION : - EVALUATE FOR SIGNS AND SYMPTOMS OF INFECTION AND DOCUMENT FINDINGS. STATUS: CONTINUED DATE: 09/04/2024 03. DEBRIDE WEEKLY OR MORE OFTEN PRN : - EVALUATE PATIENT IN CENTER WEEKLY TO ASSESS WOUND BED AND MARGINS FOR NEED FOR DEBRIDEMENT. STATUS: CONTINUED DATE: 09/04/2024 04. OPTIMIZE GLUCOSE CONTROL AND NUTRITION : - ORDER/REVIEW PERTINENT LABS TO EVALUATE RENAL FUNCTION, GLUCOSE CONTROL, AND NUTRITIONAL STATUS. STATUS: CONTINUED DATE: 09/04/2024 - COMPLETE A NUTRITION RISK ASSESSMENT. STATUS: COMPLETED DATE: 09/04/2024 05. OFFLOADING PLAN : - REVIEWED, NOT APPLICABLE 06. OPTIMIZE HOST FACTORS: - ASSESS AND REVIEW PATIENT HISTORY FOR WOUND ETIOLOGY, CO-MORBID CONDITIONS, MEDICATION REGIME, AND SMOKING HISTORY. STATUS: CONTINUED DATE: 09/04/2024 07. DRESSING SELECTION : - EVALUATE FOR DRESSING-RELATED FACTORS, SUCH AVAILABILITY, WEAR TIME, ADAPTABILITY AND USE TO BETTER OPTIMIZE WOUND HEALING AND PATIENT COMPLIANCE. STATUS: CONTINUED DATE: 09/04/2024 - CHOOSE TOPICAL TREATMENTS AND/OR DRESSING BASED ON WOUND TYPE AND APPEARANCE, PERIWOUND SKIN CONDITION, WOUND SIZE AND DEPTH, ANATOMIC LOCATION, VOLUME OF EXUDATE, EDEMA IN THE LOWER EXTREMITIES, AND RISK OR PRESENCE OF INFECTION. STATUS: CONTINUED DATE: 08/07/2024 08. ADVANCED MODALITIES : - SET TREATMENT GOALS ACCORDING TO PATIENT AND/OR CAREGIVER?S ABILITY/ COMPLIANCE. STATUS: CONTINUED DATE: 09/04/2024 09. FALL PREVENTION : - COMPLETE FALL ASSESSMENT. STATUS: CONTINUED DATE: 09/04/2024 10. PAIN MANAGEMENT : ELISSA GALLEGOS [id number] 1950 - COMPLETE PAIN ASSESSMENT STATUS: CONTINUED DATE: 09/04/2024 - PREPARE PATIENT TO SET REASONABLE EXPECTATIONS PRIOR TO PROCEDURE. STATUS: CONTINUED DATE: 09/04/2024 11. MEASURABLE GOALS FOR WOUND HEALING AND/OR HYPERBARIC OXYGEN THERAPY : - DECREASE WOUND DIMENSIONS STATUS: CONTINUED DATE: 09/04/2024 - IMPROVE QUALITY OF LIFE STATUS: CONTINUED DATE: 09/04/2024 - REDUCE RISK FOR INFECTION STATUS: CONTINUED DATE: 09/04/2024 12. DURATION/FREQUENCY OF WOUND CARE VISITS : - 1X WEEKLY FOR 30 DAYS STATUS: CONTINUED DATE: 09/04/2024 ELECTRONIC SIGNATURE(S) SIGNED BY: DATE: RAHEEM PETERSON MD 09/25/2024 15:58:03 (PT) ENTERED BY: RAHEEM PETERSON MD ON 09/25/2024 15:54:40 (PT) ELISSA GALLEGOS [id number] 1950
== END ==
LOC: WC 13:49
PROVIDERS: PCP Internal Medicine; Referring Provider Internal Medicine; Visit Provider Surgery
DX: I87.2 Venous insufficiency (chronic) (peripheral) (principal); L97.322 Non-pressure chronic ulcer of left ankle with fat layer exposed; K75.4 Autoimmune hepatitis; L53.8 Other specified erythematous conditions; R21 Rash and other nonspecific skin eruption
CPT/HCPCS: 11042

== ENCOUNTER → 2024-10-02 14:12 | Outpatient (CLI) | payer OTHER, SELFPAY ==
--- NOTE | 2024-10-02 | OV.WND_ITS ---
PROGRESS NOTE DETAILS PATIENT NAME: ELISSA GALLEGOS PATIENT NUMBER: [id number] CLINICIAN: SUDARSHAN BRADSHAW R.N. PATIENT DATE OF : 1950 PHYSICIAN / TONGER: KRISTENRAHEEM PATIENT SUBJECTIVE CHIEF COMPLAINT THIS INFORMATION WAS OBTAINED FROM THE PATIENT. THE COMPRESSION WRAP HAS BEEN TOO TIGHT AND PAINFUL. GENERAL NOTES LEFT ANKLE VENOUS ULCER. ALLERGIES PENICILLIN (SEVERITY: MODERATE, REACTION: BODY RASH) HPI THIS INFORMATION WAS OBTAINED FROM THE PATIENT. THE FOLLOWING HPI ELEMENTS WERE DOCUMENTED FOR THE PATIENT'S WOUND: LOCATION: L ANKLE DURATION: 02/27/23 CONTEXT: VENOUS THE PATIENT IS A 74 YEAR OLD FEMALE WITH HISTORY OF AUTO IMMUNE HEPATITIS WHO RETURNS TODAY FOR FOLLOW UP OF AN ULCER OF THE MEDIAL LEFT ANKLE. THE PATIENT IS RECEIVING DRESSING CHANGES WITH URGO CLEAN WITH VELCRO COMPRESSION AND IS APPLYING CLOTRIMAZOLE TO THE PERIWOUND SKIN. SHE HAD REMOVE THE VELCRO COMPRESSION BECAUSE IT WAS RUBBING AGAINST THE ULCER AND CAUSING PAIN. THE PATIENT REPORTS A GOOD APPETITE AND DENIES HAVING ANY RECENT CHANGES IN HER OVERALL HEALTH. ON EXAM TODAY THE ULCER MEASUREMENTS ARE STABLE AND THE TISSUE QUALITY IS CONTINUING TO IMPROVE. PERIWOUND FUNGAL RASH IS IMPROVED. MRI 07/10/23 SHOWED EVIDENCE FOR CELLULITIS BUT NO EVIDENCE FOR OSTEOMYELITIS. VENOUS ULTRASOUND SHOWED NO EVIDENCE FOR REFLUX. BONE SCAN REPORTEDLY DID NOT SHOW ANY EVIDENCE FOR OSTEOMYELITIS. THE PATIENT WAS PREVIOUSLY RECEIVING IV ERTAPENEM UNDER THE CARE OF DR. GANDARA HOWEVER IT WAS DISCONTINUED WHEN SHE LOST CONSCIOUSNESS. SHE THEN COMPLETED A COURSE OF CEFADROXIL. THE PATIENT DID NOT HAVE ANY SIGNIFICANT IMPROVEMENT WITH ANTIBIOTIC THERAPY. THE PATIENT IS ON CHRONIC IMMUNE SUPPRESSION FOR TREATMENT OF HER AUTO IMMUNE HEPATITIS. A BIOPSY WAS PERFORMED AND REVEALED FIBROSIS AND REACTIVE INFLAMMATION AND SQUAMOUS ATYPIA. REPEAT BIOPSY REVEALED CUTANEOUS ULCER WITH STASIS CHANGES AND DERMAL FIBROSIS. THE PATIENT UNDERWENT VEIN ABLATION OF LEFT LOWER EXTREMITY ON AUGUST 19, 2024. TREATMENT HAS BEEN COMPLICATED BY HER INTOLERANCE TO A VARIETY OF WOUND CARE PRODUCTS AND COMPRESSION HOWEVER THE PATIENT IS NOW WILLING TO TRY COMPRESSION AGAIN. LABS: 08/21/24: CULTURE GREW STAPHYLOCOCCUS AUREUS 07/24/24: CULTURE GREW ACINETOBACTER 06/25/24: CULTURE GREW LIGHT GROWTH MIXED SKIN REGIS 05/29/24: CULTURE GREW SCANT STAPHYLOCOCCUS CAPITIS 05/14/24: WBC 5.1, HEMOGLOBIN 13.3, HCT 39.1, 2 LFTS NORMAL 01/17/24: BIOPSY REVEALED CUTANEOUS ULCER WITH STASIS CHANGES AND DERMAL FIBROSIS, NO NEOPLASM 12/11/23: WBC 6.8, HGB 12.8, HCT 37.8, ELECTROLYTES NORMAL, GFR GREATER THAN 60, LFTS NORMAL ELISSA GALLEGOS [id number] 1950 10/22/23: CULTURE GREW ENTEROBACTER CLOACAE COMPLEX 10/10/23: ANKLE MRI SHOWS EVIDENCE FOR SKIN ULCERATION AND SURROUNDING CELLULITIS, NO EVIDENCE FOR OSTEOMYELITIS 07/10/23: ANKLE MRI SHOWS EVIDENCE FOR CELLULITIS, NO ABSCESS OR OSTEOMYELITIS 06/07/23: CULTURE GREW STAPHYLOCOCCUS AUREUS 05/21/23: WBC 5.3, HEMOGLOBIN 12.9, HCT 37.5 05/02/23: CULTURE GREW LISA ALBICANS 05/02/23: X-RAY LEFT ANKLE SHOWED SOFT TISSUE SWELLING 03/01/23: WBC 5.9, HEMOGLOBIN 11.4, HCT 32.9, NORMAL ELECTROLYTES, GFR GREATER THAN 60, LFTS NORMAL FAMILY HISTORY THIS INFORMATION WAS OBTAINED FROM THE PATIENT. UNKNOWN HISTORY- MATERNAL GRANDPARENTS, PATERNAL GRANDPARENTS CANCER- SIBLING DIABETES- FATHER MENTAL ILLNESS- MOTHER, SIBLING OTHER- CHILD SEIZURES- CHILD TUBERCULOSIS- MOTHER, SIBLING SOCIAL HISTORY THIS INFORMATION WAS OBTAINED FROM THE PATIENT. NEVER SMOKER ALCOHOL USE: OCCASIONALLY, 4 GLASSES/MONTH CAFFEINE USE: 2/DAY CHILDREN LIVES IN: PRIVATE HOME- WITH SONS MARITAL STATUS: OCCUPATION: [employer] MEDICAL HISTORY THIS INFORMATION WAS OBTAINED FROM THE PATIENT. PATIENT HAS A MEDICAL HISTORY OF: HYPOTHYROIDISM (SECONDARY TO MAYER FOR GRAVES DISEASE) HYPERLIPIDEMIA GASTRO ESOPH. REFLUX DISEASE (GERD) OSTEOARTHRITIS RESTLESS LEG SYNDROME DEPRESSION AUTOIMMUNE HEPATITIS ANKYLOSING SPONDYLITIS C4-C5 DISC COMPRESSION LYMPHOCYTIC COLITIS HERPES KERATITIS CYSTOCELE GRAVES DISEASE ANXIETY ADDITIONAL INFORMATION ELISSA GALLEGOS [id number] 1950 DOES PATIENT HAVE A HISTORY OF CANCER? YES? COMPLETE ALL QUESTIONS.: YES LOCATION OF CANCER: SKIN CANCER SURGICAL HISTORY THIS INFORMATION WAS OBTAINED FROM THE PATIENT. PATIENT HAS A SURGICAL HISTORY OF: PARTIAL HYSTERECTOMY- TONSILLECTOMY- BUNIONECTOMY- RIGHT SHOULDER ACROMIOPLASTY- BONE SPUR- AMPUTATION- (LEFT 2ND AND 3RD TOES- HAMMER TOE DEFORMATION) CYSTOCELE REPAIR- EYELID SURGERY- DEVIATED SEPTUM REPAIR- REVIEW OF SYSTEMS (ROS) THIS INFORMATION WAS OBTAINED FROM THE PATIENT. COMPLAINTS AND SYMPTOMS PATIENT COM PLAINS OF: CARDIOVASCULAR (CENTRAL): DYSPNEA ON EXERTION CO-MORBID CONDITIONS: VENOUS INSUFFIENCY CONSTITUTIONAL SYMPTOMS (GENERAL HEALTH): LOSS OF APPETITE PRIOR WOUND HISTORY: DRAINAGE, ERYTHEMA, PAIN PATIENT DENIES COM PLAINTS OR SY M PTOM S RELATED TO: GENERAL NOTES ALLERGIC/IMMUNOLOGIC: FREQUENT RASHES CARDIOVASCULAR (CENTRAL): CHEST PAIN CONSTITUTIONAL SYMPTOMS (GENERAL HEALTH): CHILLS, FEVER HEMATOLOGIC/LYMPHATIC: SWELLING PRIOR WOUND HISTORY: BLEEDING, MALODOR RESPIRATORY: COUGH, SHORTNESS OF BREATH OBJECTIVE VITALS HEIGHT/LENGTH: 60 IN (152.4 CM), WEIGHT: 117.1 LBS (53.23 KGS), BMI: 22.9, TEMPERATURE: 98 ?F (36.67 ?C), PULSE: 78 BPM, RESPIRATORY RATE: 16 BREATHS/MIN, BLOOD PRESSURE: 145/79 MMHG, PULSE OXIMETRY: 98 %. PHYSICAL EXAM CONSTITUTIONAL: VITAL SIGNS REVIEWED AND NOTED. WELL DEVELOPED, WELL NOURISHED, AND IN NO ACUTE DISTRESS. ALERT AND ORIENTED X3. RESPIRATORY: EVEN RESPIRATIONS WITHOUT USE OF ACCESSORY MUSCLES. NO INTERCOASTAL RETRACTIONS NOTED. EVEN AND NON LABORED RESPIRATION. INTEGUMENTARY (HAIR, SKIN): ELISSA GALLEGOS [id number] 1950 MILD PERIWOUND INFLAMMATION. PERIWOUND TENDERNESS, NO SWELLING. SEE WOUND ASSESSMENT. SKIN WARM AND DRY. PERIWOUND FUNGAL RASH IMPROVED. NEUROLOGICAL: SENSATION: SYMMETRIC FUNCTION BY INFORMAL OBSERVATION. PSYCHIATRIC: ORIENTATION TO TIME, PLACE AND PERSON: NORMAL AFFECT WITH NORMAL THOUGHT PATTERN. ADDITIONAL INFORMATION THE PATIENT'S POTENTIAL TO HEAL IS: POOR. LOWER EXTREMITY ASSESSMENT EDEMA ASSESSMENT: LEFT EXTREMITY: EDEMA IS PRESENT COMPRESSION DEVICE IN USE: YES DEVICE USED CORRECTLY: YES DEVICE IN USE: FARROW WRAP CALF MEASUREMENT 28 CM FROM HEEL WITH LEFT MEASUREMENT OF 31.5 CM ANKLE MEASUREMENT 5 CM FROM ANKLE WITH LEFT MEASUREMENT OF 19 CM FOOT MEASUREMENT 13 CM FROM HEEL WITH LEFT MEASUREMENT OF 19.5 CM RIGHT EXTREMITY: EDEMA IS NOT PRESENT COMPRESSION DEVICE IN USE: YES DEVICE USED CORRECTLY: YES DEVICE IN USE: COMPRESSION STOCKINGS VASCULAR ASSESSMENT LEFT EXTREMITY COLORS, HAIR GROWTH, AND CONDITIONS: EXTREMITY COLOR: PIGMENTED HAIR GROWTH ON EXTREMITY: YES TEMPERATURE OF EXTREMITY: WARM CAPILARY REFILL: < 3 SECONDS ERYTHEMA: YES DEPENDENT RUBOR: NO HYPERPIGMENTATION: NO LIPODERMATOSCLEROSIS: NO RIGHT EXTREMITY COLORS, HAIR GROWTH, AND CONDITIONS: EXTREMITY COLOR: PIGMENTED HAIR GROWTH ON EXTREMITY: YES TEMPERATURE OF EXTREMITY: WARM CAPILARY REFILL: < 3 SECONDS ERYTHEMA: NO DEPENDENT RUBOR: NO HYPERPIGMENTATION: NO LIPODERMATOSCLEROSIS: NO OFF-LOADING: LEFT OFF-LOADING DEVICE IN USE: NO RIGHT OFF-LOADING DEVICE IN USE: NO WOUND ASSESSMENT(S) WOUND #2 LEFT, MEDIAL ANKLE IS A CHRONIC FULL THICKNESS INFECTIOUS ACQUIRED ON 02/27/2023 AND HAS RECEIVED A STATUS OF NOT HEALED. INITIAL WOUND ENCOUNTER MEASUREMENTS ARE 3.5CM LENGTH X 2.6CM WIDTH X 0.3 CM DEPTH, WITH AN AREA OF 9.1 SQ CM AND A VOLUME OF 2.73 CUBIC CM.INITIAL WOUND ENCOUNTER PREVIOUS MEASUREMENTS FROM 09/25/2024 ARE 3.6CM LENGTH X 2.6CM WIDTH X 0.2CM DEPTH, WITH AN AREA OF 9.36 SQ CM AND A VOLUME OF 1.872 CUBIC CM. ADIPOSE IS EXPOSED. HYPERGRANULATION WAS NOTED. NO TUNNELING HAS BEEN NOTED. NO SINUS TRACT HAS BEEN NOTED. NO UNDERMINING HAS BEEN NOTED. THERE IS A MODERATE AMOUNT OF PURULENT DRAINAGE NOTED WHICH HAS NO ODOR. THE PATIENT REPORTS A WOUND PAIN OF LEVEL 4/10. THE WOUND MARGIN IS ATTACHED WOUND BED HAS YES, PINK, FIRM, GRANULATION, YES SLOUGH, NO ESCHAR, NO EPITHELIALIZATION. THE PERIWOUND SKIN EXHIBITED EDEMA, RASH, ATROPHIE DIOGENES AND ERYTHEMA. THE PERIWOUND SKIN DID NOT EXHIBIT BRAWNY INDURATION, EXCORIATION, INDURATION, CALLUS, CREPITUS, FLUCTUANCE, MACERATION, CYANOSIS, ECCHYMOSIS, HEMOSIDEROSIS, PALLOR AND RUBOR. THE PERIWOUND SKIN WAS MOIST. THE PERIWOUND SKIN WAS ELISSA GALLEGOS [id number] 1950 NOT FRIABLE AND DRY/SCALY. THE TEMPERATURE OF THE PERIWOUND SKIN IS WNL. PERIWOUND SKIN DOES NOT EXHIBIT SIGNS OR SYMPTOMS OF INFECTION. LOCAL PULSE IS PALPABLE. GENERAL NOTES PROXIMAL SATELLITE ULCER: 0.5 X 0.5 X 0.2CM ADDITIONAL INFORMATION OTHER DEVITALIZED TISSUE PRESENT: BIOFILM ASSESSMENT ACTIVE PROBLEMS ICD-10 (ENCOUNTER DIAGNOSIS) I87.2 - VENOUS INSUFFICIENCY (CHRONIC) (PERIPHERAL) (ENCOUNTER DIAGNOSIS) L97.322 - NON-PRESSURE CHRONIC ULCER OF LEFT ANKLE WITH FAT LAYER EXPOSED (ENCOUNTER DIAGNOSIS) B35.9 - DERMATOPHYTOSIS, UNSPECIFIED GENERAL NOTES ULCER MEDIAL LEFT ANKLE, MEASUREMENTS STABLE AND TISSUE QUALITY IS CONTINUING TO IMPROVE, PERIWOUND FUNGAL RASH IMPROVED THE FOLLOWING FACTORS HAVE BEEN IDENTIFIED THAT MAY AFFECT WOUND HEALING: DEVITALIZED TISSUE BIOFILM INFECTION VENOUS INSUFFICIENCY GOALS: REMOVED DEVITALIZED TISSUE REMOVE AND PREVENT BIOFILM TREAT INFECTION WOUND CLOSURE REDUCE SWELLING PLAN: DEBRIDEMENT, CLOTRIMAZOLE THE PERIWOUND SKIN WITH EACH DRESSING CHANGE, CONTINUE DRESSING CHANGES WITH URGO CLEAN AND START TWO-LAYER LIGHT COMPRESSION TWICE A WEEK. CONTINUE SOCORRO. FOLLOW UP IN 1 WEEK FOR A RECHECK. PROCEDURES WOUND #2 WOUND #2 (INFECTIOUS) IS LOCATED ON THE LEFT, MEDIAL ANKLE. A SKIN/SUBCUTANEOUS TISSUE LEVEL SURGICAL DEBRIDEMENT WITH A TOTAL AREA DEBRIDED OF 9.1 SQ CM. WAS PERFORMED BY RAHEEM PETERSON MD. SUBCUTANEOUS WAS REMOVED ALONG WITH DEVITALIZED TISSUE: BIOFILM, EXUDATE AND SLOUGH. THE FOLLOWING INSTRUMENT(S) WERE USED: CURETTE. PAIN CONTROL WAS ACHIEVED USING EMLA LIDOCAINE/PRILOCAINE 2.5%/2.5%. A TIME OUT WAS CONDUCTED PRIOR TO THE START OF THE PROCEDURE. A MINIMAL AMOUNT OF BLEEDING WAS CONTROLLED WITH PRESSURE. THE PROCEDURE WAS TOLERATED WELL WITH A PAIN LEVEL OF 0 THROUGHOUT AND A PAIN LEVEL OF 0 FOLLOWING THE PROCEDURE. POST DEBRIDEMENT MEASUREMENTS: 3.5CM LENGTH X 2.6CM WIDTH X 0.4CM DEPTH; WITH AN AREA OF 9.1 SQ CM AND A VOLUME OF 3.64 CUBIC CM. ADDITIONAL INFORMATION MUSCLE FASCIA OR BONE REMOVED AND SENT TO PATHOLOGY?: NO WOUND #2 (INFECTIOUS) IS LOCATED ON THE LEFT, MEDIAL ANKLE. A MULTILAYER COMPRESSION PROCEDURE WAS PERFORMED FOR THE LOWER LEFT EXTREMITY BY MARIAM CUEVAS RN. A 2 LAYER COBAN WRAP WAS APPLIED WITH ELISSA GALLEGOS [id number] 1950 MODERATE (20-30 MMHG) COMPRESSION. THE PROCEDURE WAS TOLERATED WELL WITH A PAIN LEVEL OF 0 THROUGHOUT AND A PAIN LEVEL OF 0 FOLLOWING THE PROCEDURE. GENERAL NOTES COBAN 2 LAYER LITE COMPRESSION WRAP SYSTEM APPLIED PER BUTTERMAKER'S GUIDELINES. PLAN WOUND ORDERS: WOUND #2 LEFT, MEDIAL ANKLE HAND HYGIENE HAND HYGIENE - WASH HANDS BEFORE AND AFTER WOUND CARE. CALL THE WOUND CENTER AT [phone] IF YOU HAVE SIGNS OR SYMPTOMS OF INFECTION, FEVER CHILLS OR SHAKES, INCREASED DRAINAGE, INCREASED ODOR OR UNUSUAL REDNESS. AFTER WOUND CENTER HOURS PLEASE NOTIFY YOUR PCP OR GO TO THE EMERGENCY ROOM. CLEANSER CLEANSE WOUND WITH NORMAL SALINE APPLY HYPOCHLOROUS ACID (VASHE OR SIMILAR) SOAKED 4X4 GAUZE TO WOUND BED FOR 5- 10 MINUTES AFTER PROVIDER HAS COMPLETED WOUND EXAM. REMOVE GAUZE AND DRESS WOUND ACCORDING TO DRESSING ORDERS. PROCEDURE / ANESTHETIC 4% TOPICAL LIDOCAINE TO WOUND BED PRIOR TO PROCEDURE, IN CLINIC ONLY. TOPICAL TREATMENTS OTHER ORDER: - LOTRISONE TO MARILIA-WOUND. DRESSING ORDERS APPLY DRESSING(S) AND SECURE WITH: - URGOCLEAN AG (FENESTRATED), MEXTRA TO COVER. DRESSING CHANGE FREQUENCY LEAVE DRESSING INTACT UNTIL YOUR NEXT WOUND CENTER APPOINTMENT. KEEP DRY. IF DRESSING BECOMES SOILED OR WET CONTACT THE WOUND CENTER AT [phone]. ADDITIONAL ORDERS: COMPRESSION/EDEMA CONTROL ELEVATE LEG(S) ABOVE THE LEVEL OF THE HEART MUCH POSSIBLE. AVOID STANDING IN ONE POSITION FOR MORE THAN 10 MINUTES. AVOID SITTING WITH LEGS DOWN. DO NOT CROSS LEGS WHEN SITTING. APPLY MULTI LAYER WRAP TO AFFECTED LEG(S) AT 20-30MMHG. - COBAN 2 LAYER LITE COMPRESSION WRAP SYSTEM TO LEFT LEG. DIETARY TAKE VITAMIN C 1000MG BY MOUTH DAILY. TAKE ZINC 25MG BY MOUTH DAILY. INCREASE THE PROTEIN IN YOUR DIET. FOLLOW-UP APPOINTMENTS RETURN APPOINTMENT 1 WEEK - SUNDAY FOR MD VISITS. RETURN FOR NURSE VISIT ON DATE NOTED BELOW FOR WOUND ASSESSMENT, MECHANICAL DEBRIDEMENT NECESSARY, AND COMPRESSION DRESSING CHANGE ORDERED DURING TODAY'S VISIT: COMPLETE FOR DIAGNOSIS OF: - MONDAYS FOR RE-APPLICATION OF DRESSING/WRAP. SCRIBING ATTESTATION I ATTEST, THE NURSE, THAT I SCRIBED THESE ORDERS FOR THE WOUND CARE PROVIDER. PROVIDER REVIEW AND ATTESTATION: REVIEWED AND EVALUATED LABS. REVIEWED HOSPITAL RECORDS. DISCUSSED THE PLAN OF CARE @ BEDSIDE WITH - THE PATIENT I AGREE AND ATTEST TO THE ABOVE INFORMATION PROVIDED FROM OTHER LICENSED PROFESSIONALS. PLAN OF CARE: 01. ENSURE/ESTABLISH OPTIMAL BLOOD FLOW : - COMPLETE LOWER EXTREMITY ASSESSMENT STATUS: CONTINUED DATE: 10/02/2024 - PERFORM NON-INVASIVE VASCULAR TESTING (I.E. BETH) AND DOCUMENT FINDINGS. CONSIDER REPEATING WHEN WOUND HEALING <40% AFTER 30 DAYS OF WOUND CARE. ELISSA GALLEGOS [id number] 1950 STATUS: COMPLETED DATE: 09/04/2024 - ORDER VASCULAR CONSULT FOR EVALUATION/TREATMENT AND/OR NON-INVASIVE VASCULAR TESTING. STATUS: COMPLETED DATE: 09/04/2024 02. ASSESS FOR/TREAT INFECTION : - EVALUATE FOR SIGNS AND SYMPTOMS OF INFECTION AND DOCUMENT FINDINGS. STATUS: CONTINUED DATE: 10/02/2024 03. DEBRIDE WEEKLY OR MORE OFTEN PRN : - EVALUATE PATIENT IN CENTER WEEKLY TO ASSESS WOUND BED AND MARGINS FOR NEED FOR DEBRIDEMENT. STATUS: CONTINUED DATE: 10/02/2024 04. OPTIMIZE GLUCOSE CONTROL AND NUTRITION : - ORDER/REVIEW PERTINENT LABS TO EVALUATE RENAL FUNCTION, GLUCOSE CONTROL, AND NUTRITIONAL STATUS. STATUS: CONTINUED DATE: 10/02/2024 - COMPLETE A NUTRITION RISK ASSESSMENT. STATUS: COMPLETED DATE: 09/04/2024 05. OFFLOADING PLAN : - REVIEWED, NOT APPLICABLE 06. OPTIMIZE HOST FACTORS: - ASSESS AND REVIEW PATIENT HISTORY FOR WOUND ETIOLOGY, CO-MORBID CONDITIONS, MEDICATION REGIME, AND SMOKING HISTORY. STATUS: CONTINUED DATE: 10/02/2024 07. DRESSING SELECTION : - EVALUATE FOR DRESSING-RELATED FACTORS, SUCH AVAILABILITY, WEAR TIME, ADAPTABILITY AND USE TO BETTER OPTIMIZE WOUND HEALING AND PATIENT COMPLIANCE. STATUS: CONTINUED DATE: 10/02/2024 - CHOOSE TOPICAL TREATMENTS AND/OR DRESSING BASED ON WOUND TYPE AND APPEARANCE, PERIWOUND SKIN CONDITION, WOUND SIZE AND DEPTH, ANATOMIC LOCATION, VOLUME OF EXUDATE, EDEMA IN THE LOWER EXTREMITIES, AND RISK OR PRESENCE OF INFECTION. STATUS: CONTINUED DATE: 10/02/2024 08. ADVANCED MODALITIES : - SET TREATMENT GOALS ACCORDING TO PATIENT AND/OR CAREGIVER?S ABILITY/ COMPLIANCE. STATUS: CONTINUED DATE: 10/02/2024 09. FALL PREVENTION : - COMPLETE FALL ASSESSMENT. STATUS: CONTINUED DATE: 10/02/2024 10. PAIN MANAGEMENT : - COMPLETE PAIN ASSESSMENT STATUS: CONTINUED DATE: 10/02/2024 - PREPARE PATIENT TO SET REASONABLE EXPECTATIONS PRIOR TO PROCEDURE. STATUS: CONTINUED DATE: 10/02/2024 11. MEASURABLE GOALS FOR WOUND HEALING AND/OR HYPERBARIC OXYGEN THERAPY : - DECREASE WOUND DIMENSIONS STATUS: CONTINUED DATE: 10/02/2024 - IMPROVE QUALITY OF LIFE STATUS: CONTINUED DATE: 10/02/2024 - REDUCE RISK FOR INFECTION STATUS: CONTINUED DATE: 10/02/2024 12. DURATION/FREQUENCY OF WOUND CARE VISITS : - 1X WEEKLY FOR 30 DAYS STATUS: CONTINUED DATE: 10/02/2024 ELISSA GALLEGOS [id number] 1950 ELECTRONIC SIGNATURE(S) SIGNED BY: DATE: RAHEEM PETERSON MD 10/02/2024 15:47:55 (PT) ENTERED BY: RAHEEM PETERSON MD ON 10/02/2024 15:46:03 (PT) ELISSA GALLEGOS [id number] 1950
== END ==
LOC: WC 14:13
PROVIDERS: PCP Internal Medicine; Referring Provider Internal Medicine; Visit Provider Surgery
DX: I87.2 Venous insufficiency (chronic) (peripheral) (principal); L97.322 Non-pressure chronic ulcer of left ankle with fat layer exposed; L53.8 Other specified erythematous conditions; R60.0 Localized edema; R21 Rash and other nonspecific skin eruption
CPT/HCPCS: 11042; 99213

== ENCOUNTER → 2024-10-06 15:44 | Outpatient (CLI) | payer OTHER, SELFPAY | LOC: WC 15:45 | PROVIDERS: PCP Internal Medicine; Referring Provider Internal Medicine; Visit Provider Surgery | DX: I87.2 Venous insufficiency (chronic) (peripheral) (principal); L97.322 Non-pressure chronic ulcer of left ankle with fat layer exposed; L53.8 Other specified erythematous conditions; R21 Rash and other nonspecific skin eruption | CPT/HCPCS: 11042; 87070; 87075; 87077; 87147; 87186; 87205 ==

== ENCOUNTER → 2024-10-09 14:06 | Outpatient (CLI) | payer OTHER, SELFPAY | LOC: WC 14:07 | PROVIDERS: PCP Internal Medicine; Referring Provider Internal Medicine; Visit Provider Surgery | DX: L97.322 Non-pressure chronic ulcer of left ankle with fat layer exposed (principal); R60.0 Localized edema; L53.9 Erythematous condition, unspecified | CPT/HCPCS: 29581 ==

== ENCOUNTER → 2024-10-13 14:19 | Outpatient (CLI) | payer OTHER, SELFPAY | LOC: WC 14:19 | PROVIDERS: PCP Internal Medicine; Referring Provider Internal Medicine; Visit Provider Surgery | DX: I87.2 Venous insufficiency (chronic) (peripheral) (principal); L97.322 Non-pressure chronic ulcer of left ankle with fat layer exposed; R21 Rash and other nonspecific skin eruption; L53.8 Other specified erythematous conditions; L84 Corns and callosities | CPT/HCPCS: 11042 ==

== ENCOUNTER → 2024-10-15 13:32 | Outpatient (CLI) | payer OTHER, SELFPAY | LOC: WC 13:33 | PROVIDERS: PCP Internal Medicine; Referring Provider Internal Medicine; Visit Provider Surgery | DX: L53.8 Other specified erythematous conditions (principal); I87.2 Venous insufficiency (chronic) (peripheral); L97.322 Non-pressure chronic ulcer of left ankle with fat layer exposed; R21 Rash and other nonspecific skin eruption | CPT/HCPCS: 29581 ==

== ENCOUNTER → 2024-10-20 16:17 | Outpatient (CLI) | payer OTHER, SELFPAY ==
[2024-10-20 17:17] LABS: Appearance Urine UA CLEAR; Bilirubin Urine UA NEGATIVE (NEGATIVE); Color Urine UA YELLOW; Glucose Urine UA NEGATIVE (Negative); Ketones Urine UA NEGATIVE (NEGATIVE); Leukocyte Esterase Urine UA 1+ (NEGATIVE); Nitrite Urine UA NEGATIVE (Negative); Occult Blood Urine UA NEGATIVE (Negative); Protein Urine UA TRACE (Negative); Specific Gravity Urine UA >=1.030 (1.000-1.035); Urobilinogen Urine UA 0.2 E.U./dL (0.2)
[2024-10-20 17:20] LABS: pH Urine UA 5.5 (4.5-8.0)
[2024-10-20 17:29] LABS: Bacteria Urine Many (>30); Culture Indicated Urine Specimen Cultured; RBC Urine 0-1/HPF (0-5/HPF); Squamous Epithelial Cell Urine 5-10 /HPF (0-5/HPF); Urine Volume 10mL (spun); WBC Urine 10-30/HPF (0-5/HPF)
== END ==
PROVIDERS: PCP Internal Medicine; Referring Provider Obstetrics & Gynecology; Visit Provider Obstetrics & Gynecology
DX: R82.90 Unspecified abnormal findings in urine (principal)
CPT/HCPCS: 81001; 87077; 87086; 87186

== ENCOUNTER → 2024-10-23 14:06 | Outpatient (CLI) | payer OTHER, SELFPAY ==
--- NOTE | 2024-10-23 | OV.WND_ITS ---
PROGRESS NOTE DETAILS PATIENT NAME: ELISSA GALLEGOS PATIENT NUMBER: [id number] CLINICIAN: ROSITA REICH RN PATIENT DATE OF : 1950 PHYSICIAN / PATIENT FINANCIAL COORDINATOR: RAHEEM PETERSON PATIENT SUBJECTIVE CHIEF COMPLAINT THIS INFORMATION WAS OBTAINED FROM THE PATIENT. MY LEG HURT BADLY YESTERDAY EVENING GENERAL NOTES LEFT ANKLE INFECTIOUS ULCER. ALLERGIES PENICILLIN (SEVERITY: MODERATE, REACTION: BODY RASH) HPI THIS INFORMATION WAS OBTAINED FROM THE PATIENT. THE FOLLOWING HPI ELEMENTS WERE DOCUMENTED FOR THE PATIENT'S WOUND: LOCATION: L ANKLE DURATION: 02/27/23 CONTEXT: VENOUS THE PATIENT IS A 74 YEAR OLD FEMALE WITH HISTORY OF AUTO IMMUNE HEPATITIS WHO RETURNS TODAY FOR FOLLOW UP OF AN ULCER OF THE MEDIAL LEFT ANKLE. THE PATIENT IS RECEIVING DRESSING CHANGES WITH [employer] WITH REGULAR MULTILAYER COMPRESSION TWICE A WEEK AND IS APPLYING LOTRISONE TO THE PERIWOUND SKIN. SHE DID NOT COME IN FOR A NURSE VISIT LAST WEEK AND THE CURRENT DRESSING HAS BEEN IN PLACE FOR 8 DAYS. THE PATIENT IS STILL HAVING EPISODES OF SEVERE PAIN. SHE HAS HAD A GOOD APPETITE AND DENIES HAVING ANY RECENT CHANGES IN HER OVERALL HEALTH. SHE IS TAKING PROTEIN SUPPLEMENTS. ON EXAM TODAY THE ULCER MEASUREMENTS ARE STABLE AND THERE IS MORE SLOUGH. THERE IS INCREASED PERIWOUND INFLAMMATION. MRI 07/10/23 SHOWED EVIDENCE FOR CELLULITIS BUT NO EVIDENCE FOR OSTEOMYELITIS. VENOUS ULTRASOUND SHOWED NO EVIDENCE FOR REFLUX. BONE SCAN REPORTEDLY DID NOT SHOW ANY EVIDENCE FOR OSTEOMYELITIS. THE PATIENT WAS PREVIOUSLY RECEIVING IV ERTAPENEM UNDER THE CARE OF DR. GANDARA HOWEVER IT WAS DISCONTINUED WHEN SHE LOST CONSCIOUSNESS. SHE THEN COMPLETED A COURSE OF CEFADROXIL. THE PATIENT DID NOT HAVE ANY SIGNIFICANT IMPROVEMENT WITH ANTIBIOTIC THERAPY. THE PATIENT IS ON CHRONIC IMMUNE SUPPRESSION FOR TREATMENT OF HER AUTO IMMUNE HEPATITIS. A BIOPSY WAS PERFORMED AND REVEALED FIBROSIS AND REACTIVE INFLAMMATION AND SQUAMOUS ATYPIA. REPEAT BIOPSY REVEALED CUTANEOUS ULCER WITH STASIS CHANGES AND DERMAL FIBROSIS. THE PATIENT UNDERWENT VEIN ABLATION OF LEFT LOWER EXTREMITY ON AUGUST 19, 2024. TREATMENT HAS BEEN COMPLICATED BY HER INTOLERANCE TO A VARIETY OF WOUND CARE PRODUCTS. THE PATIENT IS CURRENTLY ON CIPRO FOR TREATMENT OF A UTI. LABS: 10/06/24: CULTURE GREW SCANT GROWTH STAPH AUREUS 08/21/24: CULTURE GREW STAPHYLOCOCCUS AUREUS 07/24/24: CULTURE GREW ACINETOBACTER 06/25/24: CULTURE GREW LIGHT GROWTH MIXED SKIN REGIS 05/29/24: CULTURE GREW SCANT STAPHYLOCOCCUS CAPITIS 05/14/24: WBC 5.1, HEMOGLOBIN 13.3, HCT 39.1, 2 LFTS NORMAL ELISSA GALLEGOS [id number] 1950 01/17/24: BIOPSY REVEALED CUTANEOUS ULCER WITH STASIS CHANGES AND DERMAL FIBROSIS, NO NEOPLASM 12/11/23: WBC 6.8, HGB 12.8, HCT 37.8, ELECTROLYTES NORMAL, GFR GREATER THAN 60, LFTS NORMAL 10/22/23: CULTURE GREW ENTEROBACTER CLOACAE COMPLEX 10/10/23: ANKLE MRI SHOWS EVIDENCE FOR SKIN ULCERATION AND SURROUNDING CELLULITIS, NO EVIDENCE FOR OSTEOMYELITIS 07/10/23: ANKLE MRI SHOWS EVIDENCE FOR CELLULITIS, NO ABSCESS OR OSTEOMYELITIS 06/07/23: CULTURE GREW STAPHYLOCOCCUS AUREUS 05/21/23: WBC 5.3, HEMOGLOBIN 12.9, HCT 37.5 05/02/23: CULTURE GREW LISA ALBICANS 05/02/23: X-RAY LEFT ANKLE SHOWED SOFT TISSUE SWELLING 03/01/23: WBC 5.9, HEMOGLOBIN 11.4, HCT 32.9, NORMAL ELECTROLYTES, GFR GREATER THAN 60, LFTS NORMAL MEDICAL HISTORY THIS INFORMATION WAS OBTAINED FROM THE PATIENT. PATIENT HAS A MEDICAL HISTORY OF: HYPOTHYROIDISM (SECONDARY TO MAYER FOR GRAVES DISEASE) HYPERLIPIDEMIA GASTRO ESOPH. REFLUX DISEASE (GERD) OSTEOARTHRITIS RESTLESS LEG SYNDROME DEPRESSION AUTOIMMUNE HEPATITIS ANKYLOSING SPONDYLITIS C4-C5 DISC COMPRESSION LYMPHOCYTIC COLITIS HERPES KERATITIS CYSTOCELE GRAVES DISEASE ANXIETY ADDITIONAL INFORMATION DOES PATIENT HAVE A HISTORY OF CANCER? YES? COMPLETE ALL QUESTIONS.: YES LOCATION OF CANCER: SKIN CANCER SURGICAL HISTORY THIS INFORMATION WAS OBTAINED FROM THE PATIENT. PATIENT HAS A SURGICAL HISTORY OF: PARTIAL HYSTERECTOMY- TONSILLECTOMY- BUNIONECTOMY- RIGHT SHOULDER ACROMIOPLASTY- BONE SPUR- AMPUTATION- (LEFT 2ND AND 3RD TOES- HAMMER TOE DEFORMATION) CYSTOCELE REPAIR- EYELID SURGERY- DEVIATED SEPTUM REPAIR- OBJECTIVE VITALS ELISSA GALLEGOS [id number] 1950 HEIGHT/LENGTH: 60 IN (152.4 CM), WEIGHT: 117.1 LBS (53.23 KGS), BMI: 22.9, TEMPERATURE: 98.9 ?F (37.17 ?C), PULSE: 90 BPM, RESPIRATORY RATE: 18 BREATHS/MIN, BLOOD PRESSURE: 133/77 MMHG, PULSE OXIMETRY: 99 %. PHYSICAL EXAM CONSTITUTIONAL: VITAL SIGNS REVIEWED AND NOTED. WELL DEVELOPED, WELL NOURISHED, AND IN NO ACUTE DISTRESS. ALERT AND ORIENTED X3. RESPIRATORY: EVEN RESPIRATIONS WITHOUT USE OF ACCESSORY MUSCLES. NO INTERCOASTAL RETRACTIONS NOTED. EVEN AND NON LABORED RESPIRATION. INTEGUMENTARY (HAIR, SKIN): INCREASED PERIWOUND INFLAMMATION. PERIWOUND TENDERNESS. SEE WOUND ASSESSMENT. SKIN WARM AND DRY. NO RASHES. NEUROLOGICAL: SENSATION: SYMMETRIC FUNCTION BY INFORMAL OBSERVATION. PSYCHIATRIC: ORIENTATION TO TIME, PLACE AND PERSON: NORMAL AFFECT WITH NORMAL THOUGHT PATTERN. ADDITIONAL INFORMATION THE PATIENT'S POTENTIAL TO HEAL IS: POOR. WOUND ASSESSMENT(S) WOUND #2 LEFT, MEDIAL ANKLE IS A CHRONIC FULL THICKNESS INFECTIOUS ACQUIRED ON 02/27/2023 AND HAS RECEIVED A STATUS OF NOT HEALED. INITIAL WOUND ENCOUNTER MEASUREMENTS ARE 3.5CM LENGTH X 2.5CM WIDTH X 0.2 CM DEPTH, WITH AN AREA OF 8.75 SQ CM AND A VOLUME OF 1.75 CUBIC CM.INITIAL WOUND ENCOUNTER PREVIOUS MEASUREMENTS FROM 10/15/2024 ARE 3.4CM LENGTH X 2.6CM WIDTH X 0.2CM DEPTH, WITH AN AREA OF 8.84 SQ CM AND A VOLUME OF 1.768 CUBIC CM. ADIPOSE IS EXPOSED. HYPERGRANULATION WAS NOTED. NO TUNNELING HAS BEEN NOTED. NO SINUS TRACT HAS BEEN NOTED. NO UNDERMINING HAS BEEN NOTED. THERE IS A MODERATE AMOUNT OF PURULENT DRAINAGE NOTED WHICH HAS NO ODOR. THE PATIENT REPORTS A WOUND PAIN OF LEVEL 4/10. THE WOUND MARGIN IS ATTACHED WOUND BED HAS YES, BRIGHT RED, PINK, FIRM, GRANULATION, YES SLOUGH, NO ESCHAR, NO EPITHELIALIZATION. THE PERIWOUND SKIN EXHIBITED EDEMA, EXCORIATION, RASH, MACERATION, ATROPHIE DIOGENES AND ERYTHEMA. THE PERIWOUND SKIN DID NOT EXHIBIT BRAWNY INDURATION, INDURATION, CALLUS, CREPITUS, FLUCTUANCE, CYANOSIS, ECCHYMOSIS, HEMOSIDEROSIS, PALLOR AND RUBOR. THE PERIWOUND SKIN WAS MOIST. THE PERIWOUND SKIN WAS NOT FRIABLE AND DRY/SCALY. THE TEMPERATURE OF THE PERIWOUND SKIN IS WNL. PERIWOUND SKIN DOES NOT EXHIBIT SIGNS OR SYMPTOMS OF INFECTION. LOCAL PULSE IS PALPABLE. GENERAL NOTES PROXIMAL SATELLITE ULCER: 0.7X0.6X0.1CM. PERIWOUND SKIN BREAKDOWN NOTED TO ALL OF PERIWOUND. ADDITIONAL INFORMATION OTHER DEVITALIZED TISSUE PRESENT: BIOFILM ASSESSMENT ACTIVE PROBLEMS ICD-10 (ENCOUNTER DIAGNOSIS) I87.2 - VENOUS INSUFFICIENCY (CHRONIC) (PERIPHERAL) (ENCOUNTER DIAGNOSIS) L97.322 - NON-PRESSURE CHRONIC ULCER OF LEFT ANKLE WITH FAT LAYER EXPOSED (ENCOUNTER DIAGNOSIS) B35.9 - DERMATOPHYTOSIS, UNSPECIFIED GENERAL NOTES ULCER MEDIAL LEFT ANKLE, MEASUREMENTS STABLE, INCREASED SLOUGH AND PERIWOUND INFLAMMATION THE FOLLOWING FACTORS HAVE BEEN IDENTIFIED THAT MAY AFFECT WOUND HEALING: ELISSA GALLEGOS [id number] 1950 DEVITALIZED TISSUE BIOFILM INFECTION VENOUS INSUFFICIENCY GOALS: REMOVED DEVITALIZED TISSUE REMOVE AND PREVENT BIOFILM TREAT INFECTION WOUND CLOSURE REDUCE SWELLING PLAN: DEBRIDEMENT, ZINC BARRIER CREAM TO THE PERIWOUND SKIN WITH EACH DRESSING CHANGE, CONTINUE DRESSING CHANGES WITH [employer] AND SWITCH TO MULTILAYER REGULAR COMPRESSION TWICE A WEEK. CONTINUE SOCORRO. FOLLOW UP IN 1 WEEK FOR A RECHECK. EMPHASIZED THE IMPORTANCE OF HAVING DRESSING CHANGE TWICE A WEEK. PROCEDURES WOUND #2 WOUND #2 (INFECTIOUS) IS LOCATED ON THE LEFT, MEDIAL ANKLE. A SKIN/SUBCUTANEOUS TISSUE LEVEL SURGICAL DEBRIDEMENT WITH A TOTAL AREA DEBRIDED OF 8.75 SQ CM. WAS PERFORMED BY RAHEEM PETERSON MD. SUBCUTANEOUS WAS REMOVED ALONG WITH DEVITALIZED TISSUE: BIOFILM, EXUDATE AND SLOUGH. THE FOLLOWING INSTRUMENT(S) WERE USED: BLADE. PAIN CONTROL WAS ACHIEVED USING EMLA LIDOCAINE/PRILOCAINE 2.5%/2.5%. A TIME OUT WAS CONDUCTED PRIOR TO THE START OF THE PROCEDURE. A MODERATE AMOUNT OF BLEEDING WAS CONTROLLED WITH PRESSURE. THE PROCEDURE WAS TOLERATED WELL WITH A PAIN LEVEL OF 5 THROUGHOUT AND A PAIN LEVEL OF 3 FOLLOWING THE PROCEDURE. POST DEBRIDEMENT MEASUREMENTS: 3.5CM LENGTH X 2.5CM WIDTH X 0.3CM DEPTH; WITH AN AREA OF 8.75 SQ CM AND A VOLUME OF 2.625 CUBIC CM. ADDITIONAL INFORMATION MUSCLE FASCIA OR BONE REMOVED AND SENT TO PATHOLOGY?: NO WOUND #2 (INFECTIOUS) IS LOCATED ON THE LEFT, MEDIAL ANKLE. A MULTILAYER COMPRESSION PROCEDURE WAS PERFORMED FOR THE LOWER LEFT EXTREMITY BY TRENTON STEWART MA. A 2 LAYER COBAN WRAP WAS APPLIED WITH HIGH (30-40 MMHG) COMPRESSION. THE PROCEDURE WAS TOLERATED WELL WITH A PAIN LEVEL OF 0 THROUGHOUT AND A PAIN LEVEL OF 0 FOLLOWING THE PROCEDURE. GENERAL NOTES COBAN 2 LAYER REGULAR COMPRESSION WRAP SYSTEM APPLIED PER HVAC OPERATIONS TECHNICIAN'S GUIDELINES. PLAN WOUND ORDERS: WOUND #2 LEFT, MEDIAL ANKLE HAND HYGIENE HAND HYGIENE - WASH HANDS BEFORE AND AFTER WOUND CARE. CALL THE WOUND CENTER AT [phone] IF YOU HAVE SIGNS OR SYMPTOMS OF INFECTION, FEVER CHILLS OR SHAKES, INCREASED DRAINAGE, INCREASED ODOR OR UNUSUAL REDNESS. AFTER WOUND CENTER HOURS PLEASE NOTIFY YOUR PCP OR GO TO THE EMERGENCY ROOM. CLEANSER CLEANSE WOUND WITH NORMAL SALINE APPLY HYPOCHLOROUS ACID (VASHE OR SIMILAR) SOAKED 4X4 GAUZE TO WOUND BED FOR 5- 10 MINUTES AFTER PROVIDER HAS COMPLETED WOUND EXAM. REMOVE GAUZE AND DRESS WOUND ACCORDING TO DRESSING ORDERS. PROCEDURE / ANESTHETIC 4% TOPICAL LIDOCAINE TO WOUND BED PRIOR TO PROCEDURE, IN CLINIC ONLY. TOPICAL TREATMENTS OTHER ORDER: - ZINC OXIDE BARRIER CREAM TO PERIWOUND. EL ELISSA Fregoso [id number] 1950 DRESSING ORDERS APPLY DRESSING(S) AND SECURE WITH: - URGOCLEAN AG (FENESTRATED), AQUACEL TO BOLSTER, MEXTRA TO COVER. (OPTIFOAM ON ACHILLES FOR CUSHIONING). DRESSING CHANGE FREQUENCY LEAVE DRESSING INTACT UNTIL YOUR NEXT WOUND CENTER APPOINTMENT. KEEP DRY. IF DRESSING BECOMES SOILED OR WET CONTACT THE WOUND CENTER AT [phone]. COMPRESSION/EDEMA CONTROL ELEVATE LEG(S) ABOVE THE LEVEL OF THE HEART MUCH POSSIBLE. AVOID STANDING IN ONE POSITION FOR MORE THAN 10 MINUTES. AVOID SITTING WITH LEGS DOWN. DO NOT CROSS LEGS WHEN SITTING. APPLY MULTI LAYER WRAP TO AFFECTED LEG(S) AT 30-40MMHG. - COBAN 2 LAYER COMPRESSION WRAP SYSTEM TO LEFT LEG. ADDITIONAL ORDERS: DIETARY TAKE VITAMIN C 1000MG BY MOUTH DAILY. TAKE ZINC 25MG BY MOUTH DAILY. INCREASE THE PROTEIN IN YOUR DIET. FOLLOW-UP APPOINTMENTS RETURN APPOINTMENT 1 WEEK - THURSDAYS. RETURN FOR NURSE VISIT ON DATE NOTED BELOW FOR WOUND ASSESSMENT, MECHANICAL DEBRIDEMENT NECESSARY, AND COMPRESSION DRESSING CHANGE ORDERED DURING TODAY'S VISIT: COMPLETE FOR DIAGNOSIS OF: - MONDAYS FOR NURSE VISIT FOR RE-APPLICATION OF DRESSING/WRAP. SCRIBING ATTESTATION I ATTEST, THE NURSE, THAT I SCRIBED THESE ORDERS FOR THE WOUND CARE PROVIDER. PROVIDER REVIEW AND ATTESTATION: REVIEWED AND EVALUATED LABS. REVIEWED HOSPITAL RECORDS. DISCUSSED THE PLAN OF CARE @ BEDSIDE WITH - THE PATIENT I AGREE AND ATTEST TO THE ABOVE INFORMATION PROVIDED FROM OTHER LICENSED PROFESSIONALS. PLAN OF CARE: 01. ENSURE/ESTABLISH OPTIMAL BLOOD FLOW : - COMPLETE LOWER EXTREMITY ASSESSMENT STATUS: CONTINUED DATE: 10/02/2024 - PERFORM NON-INVASIVE VASCULAR TESTING (I.E. BETH) AND DOCUMENT FINDINGS. CONSIDER REPEATING WHEN WOUND HEALING <40% AFTER 30 DAYS OF WOUND CARE. STATUS: COMPLETED DATE: 09/04/2024 - ORDER VASCULAR CONSULT FOR EVALUATION/TREATMENT AND/OR NON-INVASIVE VASCULAR TESTING. STATUS: COMPLETED DATE: 09/04/2024 02. ASSESS FOR/TREAT INFECTION : - EVALUATE FOR SIGNS AND SYMPTOMS OF INFECTION AND DOCUMENT FINDINGS. STATUS: CONTINUED DATE: 10/02/2024 03. DEBRIDE WEEKLY OR MORE OFTEN PRN : - EVALUATE PATIENT IN CENTER WEEKLY TO ASSESS WOUND BED AND MARGINS FOR NEED FOR DEBRIDEMENT. STATUS: CONTINUED DATE: 10/02/2024 04. OPTIMIZE GLUCOSE CONTROL AND NUTRITION : - ORDER/REVIEW PERTINENT LABS TO EVALUATE RENAL FUNCTION, GLUCOSE CONTROL, AND NUTRITIONAL STATUS. STATUS: CONTINUED DATE: 10/02/2024 - COMPLETE A NUTRITION RISK ASSESSMENT. STATUS: COMPLETED DATE: 09/04/2024 05. OFFLOADING PLAN : - REVIEWED, NOT APPLICABLE 06. OPTIMIZE HOST FACTORS: - ASSESS AND REVIEW PATIENT HISTORY FOR WOUND ETIOLOGY, CO-MORBID CONDITIONS, MEDICATION REGIME, AND SMOKING HISTORY. STATUS: CONTINUED DATE: 10/02/2024 ELISSA GALLEGOS [id number] 1950 07. DRESSING SELECTION : - EVALUATE FOR DRESSING-RELATED FACTORS, SUCH AVAILABILITY, WEAR TIME, ADAPTABILITY AND USE TO BETTER OPTIMIZE WOUND HEALING AND PATIENT COMPLIANCE. STATUS: CONTINUED DATE: 10/02/2024 - CHOOSE TOPICAL TREATMENTS AND/OR DRESSING BASED ON WOUND TYPE AND APPEARANCE, PERIWOUND SKIN CONDITION, WOUND SIZE AND DEPTH, ANATOMIC LOCATION, VOLUME OF EXUDATE, EDEMA IN THE LOWER EXTREMITIES, AND RISK OR PRESENCE OF INFECTION. STATUS: CONTINUED DATE: 10/02/2024 08. ADVANCED MODALITIES : - SET TREATMENT GOALS ACCORDING TO PATIENT AND/OR CAREGIVER?S ABILITY/ COMPLIANCE. STATUS: CONTINUED DATE: 10/02/2024 09. FALL PREVENTION : - COMPLETE FALL ASSESSMENT. STATUS: CONTINUED DATE: 10/02/2024 10. PAIN MANAGEMENT : - COMPLETE PAIN ASSESSMENT STATUS: CONTINUED DATE: 10/02/2024 - PREPARE PATIENT TO SET REASONABLE EXPECTATIONS PRIOR TO PROCEDURE. STATUS: CONTINUED DATE: 10/02/2024 11. MEASURABLE GOALS FOR WOUND HEALING AND/OR HYPERBARIC OXYGEN THERAPY : - DECREASE WOUND DIMENSIONS STATUS: CONTINUED DATE: 10/02/2024 - IMPROVE QUALITY OF LIFE STATUS: CONTINUED DATE: 10/02/2024 - REDUCE RISK FOR INFECTION STATUS: CONTINUED DATE: 10/02/2024 12. DURATION/FREQUENCY OF WOUND CARE VISITS : - 1X WEEKLY FOR 30 DAYS STATUS: CONTINUED DATE: 10/02/2024 ELECTRONIC SIGNATURE(S) SIGNED BY: DATE: RAHEEM PETERSON MD 10/23/2024 16:18:43 (PT) ENTERED BY: RAHEEM PETERSON MD ON 10/23/2024 16:13:19 (PT) ELISSA GALLEGOS [id number] 1950
== END ==
LOC: WC 14:07
PROVIDERS: PCP Internal Medicine; Referring Provider Internal Medicine; Visit Provider Surgery
DX: I87.2 Venous insufficiency (chronic) (peripheral) (principal); L97.322 Non-pressure chronic ulcer of left ankle with fat layer exposed; B35.9 Dermatophytosis, unspecified; L53.8 Other specified erythematous conditions; R60.0 Localized edema
CPT/HCPCS: 11042

== ENCOUNTER → 2024-10-27 14:50 | Outpatient (CLI) | payer OTHER, SELFPAY | LOC: WC 14:51 | PROVIDERS: PCP Internal Medicine; Referring Provider Internal Medicine; Visit Provider Surgery | DX: S91.002A Unspecified open wound, left ankle, initial encounter (principal); L53.8 Other specified erythematous conditions | CPT/HCPCS: 29581 ==

== ENCOUNTER → 2024-10-30 13:25 | Outpatient (CLI) | payer OTHER, SELFPAY | PROVIDERS: PCP Internal Medicine; Referring Provider Internal Medicine; Visit Provider Surgery | DX: L97.322 Non-pressure chronic ulcer of left ankle with fat layer exposed (principal); I87.2 Venous insufficiency (chronic) (peripheral); L53.9 Erythematous condition, unspecified; B35.9 Dermatophytosis, unspecified; M25.572 Pain in left ankle and joints of left foot; K75.4 Autoimmune hepatitis | CPT/HCPCS: 11042; 99213 ==

== ENCOUNTER → 2024-11-06 10:56 | Outpatient (CLI) | payer OTHER, SELFPAY | PROVIDERS: PCP Internal Medicine; Referring Provider Internal Medicine; Visit Provider Physician Assistant | DX: S91.002A Unspecified open wound, left ankle, initial encounter (principal); L53.8 Other specified erythematous conditions; R21 Rash and other nonspecific skin eruption; R60.0 Localized edema | CPT/HCPCS: 99212 ==

== ENCOUNTER → 2024-11-13 13:31 | Outpatient (CLI) | payer OTHER, SELFPAY | PROVIDERS: PCP Internal Medicine; Referring Provider Internal Medicine; Visit Provider Surgery | DX: I87.2 Venous insufficiency (chronic) (peripheral) (principal); L97.322 Non-pressure chronic ulcer of left ankle with fat layer exposed; L53.8 Other specified erythematous conditions; B35.9 Dermatophytosis, unspecified; R21 Rash and other nonspecific skin eruption | CPT/HCPCS: 11042; 99213 ==

== ENCOUNTER → 2024-11-18 14:29 | Outpatient (CLI) | payer OTHER, SELFPAY | PROVIDERS: PCP Internal Medicine; Referring Provider Internal Medicine; Visit Provider Surgery | DX: I87.2 Venous insufficiency (chronic) (peripheral) (principal); L97.322 Non-pressure chronic ulcer of left ankle with fat layer exposed; L08.9 Local infection of the skin and subcutaneous tissue, unspecified; L53.8 Other specified erythematous conditions; R60.0 Localized edema | CPT/HCPCS: 11042; 87070; 87075; 87205 ==

== ENCOUNTER → 2024-11-18 15:34 | Outpatient (CLI) | payer OTHER, SELFPAY ==
--- NOTE | 2024-11-18 15:41 | DI.RAD.S_ITS ---
PROCEDURE: XR ANKLE LT MIN 3V INDICATIONS: SUBACUTE OSTEOMYELITIS OF LT FOOT TECHNIQUE: 3 views of the ankle were acquired. COMPARISON: [facility], CR, XR ANKLE LT MIN 3V, 05/02/2023, 23:06. FINDINGS: Diffuse osseous demineralization. No acute fracture or dislocation. The ankle mortise is preserved on the nonweightbearing view. No talar dome osteochondral defect. No osseous erosions or periosteal reaction. No radiographic evidence of subcutaneous emphysema. IMPRESSION: No acute fracture, dislocation, or radiographic evidence of osteomyelitis. Dictated by: Chandrakant Carrillo M.D. on 11/18/2024 at 16:34 Approved by: Chandrakant Carrillo M.D. on 11/18/2024 at 16:35
== END ==
PROVIDERS: PCP Internal Medicine; Referring Provider Internal Medicine; Visit Provider Internal Medicine Infectious Disease
DX: M86.272 Subacute osteomyelitis, left ankle and foot (principal); I87.2 Venous insufficiency (chronic) (peripheral); L97.322 Non-pressure chronic ulcer of left ankle with fat layer exposed; L08.9 Local infection of the skin and subcutaneous tissue, unspecified; L53.8 Other specified erythematous conditions; R60.0 Localized edema
CPT/HCPCS: 11042; 73610; 87070; 87075; 87205

== ENCOUNTER → 2024-11-26 14:53 | Outpatient (CLI) | payer OTHER, SELFPAY | LOC: WC 14:54 | PROVIDERS: PCP Internal Medicine; Referring Provider Internal Medicine; Visit Provider Surgery | DX: I87.2 Venous insufficiency (chronic) (peripheral) (principal); L97.322 Non-pressure chronic ulcer of left ankle with fat layer exposed; L08.9 Local infection of the skin and subcutaneous tissue, unspecified; R21 Rash and other nonspecific skin eruption | CPT/HCPCS: 11042; 99213 ==

== ENCOUNTER → 2024-12-11 14:57 | Outpatient (CLI) | payer OTHER, SELFPAY | LOC: WC 14:59 | PROVIDERS: PCP Internal Medicine; Referring Provider Internal Medicine; Visit Provider Surgery | DX: B99.9 Unspecified infectious disease (principal); L97.322 Non-pressure chronic ulcer of left ankle with fat layer exposed; I87.2 Venous insufficiency (chronic) (peripheral); B35.9 Dermatophytosis, unspecified; K75.4 Autoimmune hepatitis | CPT/HCPCS: 11042 ==

== ENCOUNTER → 2024-12-17 13:58 | Outpatient (CLI) | payer OTHER, SELFPAY | PROVIDERS: PCP Internal Medicine; Referring Provider Internal Medicine; Visit Provider Surgery | DX: B99.9 Unspecified infectious disease (principal); L97.322 Non-pressure chronic ulcer of left ankle with fat layer exposed; B35.9 Dermatophytosis, unspecified; L08.9 Local infection of the skin and subcutaneous tissue, unspecified; L53.9 Erythematous condition, unspecified; Z89.422 Acquired absence of other left toe(s); K75.4 Autoimmune hepatitis | CPT/HCPCS: 11042 ==

== ENCOUNTER → 2024-12-25 14:17 | Outpatient (CLI) | payer OTHER, SELFPAY | PROVIDERS: PCP Internal Medicine; Referring Provider Internal Medicine; Visit Provider Surgery | DX: I87.2 Venous insufficiency (chronic) (peripheral) (principal); L97.322 Non-pressure chronic ulcer of left ankle with fat layer exposed; B99.9 Unspecified infectious disease; B35.9 Dermatophytosis, unspecified; L08.9 Local infection of the skin and subcutaneous tissue, unspecified; R60.0 Localized edema; L53.9 Erythematous condition, unspecified; K75.4 Autoimmune hepatitis | CPT/HCPCS: 11042; 99213 ==

== ENCOUNTER → 2024-12-25 15:22 | Outpatient (CLI) | payer OTHER, SELFPAY ==
--- NOTE | 2024-12-25 15:24 | DI.RAD.S_ITS ---
PROCEDURE: XR CERVICAL SPINE 4V OR 5V INDICATIONS: NECK PAIN TECHNIQUE: 5 views of the cervical spine acquired. COMPARISON: [facility], CR, XR CERVICAL SPINE 4V OR 5V, 12/29/2022, 14:45. [facility], CR, XR CERVICAL SPINE 2V OR 3V, 11/26/2020, 16:45. FINDINGS: Bones: No fractures or dislocations to the T1 level. Loss cervical spine lordosis. There is multilevel disc space height loss most pronounced at C4-C5 and C5-C6 and C6-C7. Anterolisthesis of C3 on C4 measuring 0.3 cm. Bony neural foraminal narrowing at C3-C4 bilaterally. Soft tissues: No prevertebral soft tissue swelling. IMPRESSION: Advanced degenerative changes in the cervical spine with reversed lordosis. Dictated by: Cam Fortune M.D. on 12/25/2024 at 17:10 Approved by: Cam Fortune M.D. on 12/25/2024 at 17:14
== END ==
PROVIDERS: PCP Internal Medicine; Referring Provider Physical Medicine & Rehabilitation; Visit Provider Physical Medicine & Rehabilitation
DX: M54.12 Radiculopathy, cervical region (principal); G95.9 Disease of spinal cord, unspecified; M89.8X8 Other specified disorders of bone, other site; I87.2 Venous insufficiency (chronic) (peripheral); L97.322 Non-pressure chronic ulcer of left ankle with fat layer exposed; B99.9 Unspecified infectious disease; B35.9 Dermatophytosis, unspecified; L08.9 Local infection of the skin and subcutaneous tissue, unspecified; R60.0 Localized edema; L53.9 Erythematous condition, unspecified; K75.4 Autoimmune hepatitis
CPT/HCPCS: 11042; 72050

== ENCOUNTER → 2025-01-01 13:10 | Outpatient (CLI) | payer OTHER, SELFPAY | LOC: WC 13:15 | PROVIDERS: PCP Internal Medicine; Referring Provider Internal Medicine; Visit Provider Surgery | DX: I87.2 Venous insufficiency (chronic) (peripheral) (principal); L97.322 Non-pressure chronic ulcer of left ankle with fat layer exposed; L53.9 Erythematous condition, unspecified | CPT/HCPCS: 11042 ==

== ENCOUNTER → 2025-01-08 13:26 | Outpatient (CLI) | payer OTHER, SELFPAY | LOC: WC 13:32 | PROVIDERS: PCP Internal Medicine; Referring Provider Internal Medicine; Visit Provider Surgery | DX: I87.2 Venous insufficiency (chronic) (peripheral) (principal); L97.322 Non-pressure chronic ulcer of left ankle with fat layer exposed; L08.89 Other specified local infections of the skin and subcutaneous tissue; K75.4 Autoimmune hepatitis | CPT/HCPCS: 11042 ==

== ENCOUNTER → 2025-01-15 13:20 | Outpatient (CLI) | payer OTHER, SELFPAY | PROVIDERS: PCP Internal Medicine; Referring Provider Internal Medicine; Visit Provider Surgery | DX: I87.2 Venous insufficiency (chronic) (peripheral) (principal); L97.322 Non-pressure chronic ulcer of left ankle with fat layer exposed; B35.9 Dermatophytosis, unspecified; L08.9 Local infection of the skin and subcutaneous tissue, unspecified | CPT/HCPCS: 11042 ==

== ENCOUNTER → 2025-01-28 15:58 | Outpatient (CLI) | payer OTHER, SELFPAY | LOC: WC 15:59 | PROVIDERS: PCP Internal Medicine; Referring Provider Internal Medicine; Visit Provider Surgery | DX: B99.9 Unspecified infectious disease (principal); L97.322 Non-pressure chronic ulcer of left ankle with fat layer exposed; I87.2 Venous insufficiency (chronic) (peripheral); L08.89 Other specified local infections of the skin and subcutaneous tissue | CPT/HCPCS: 11042; 99213 ==

== ENCOUNTER → 2025-02-04 14:57 | Outpatient (CLI) | payer OTHER, SELFPAY | PROVIDERS: PCP Internal Medicine; Referring Provider Internal Medicine; Visit Provider Surgery | DX: I87.2 Venous insufficiency (chronic) (peripheral) (principal); L97.322 Non-pressure chronic ulcer of left ankle with fat layer exposed | CPT/HCPCS: 11042 ==

== ENCOUNTER → 2025-02-19 13:05 | Outpatient (CLI) | payer OTHER, SELFPAY | LOC: WC 13:05 | PROVIDERS: PCP Internal Medicine; Referring Provider Internal Medicine; Visit Provider Surgery | DX: L97.322 Non-pressure chronic ulcer of left ankle with fat layer exposed (principal); I87.2 Venous insufficiency (chronic) (peripheral); L08.9 Local infection of the skin and subcutaneous tissue, unspecified; K75.4 Autoimmune hepatitis | CPT/HCPCS: 11042; 87070; 87075; 87077; 87186; 87205 ==

== ENCOUNTER 2025-02-26 09:22 | Outpatient (CLI) | payer OTHER, SELFPAY ==
[2025-02-26 10:10] VITALS: BP 153/70; PULSE 77; RESP 16; TEMP 36.1; O2SAT 95
[2025-02-26 10:30] VITALS: BP 185/86; PULSE 87; RESP 16; O2SAT 100
[2025-02-26] MEDS: MIDAZOLAM 2 MG/2 ML VIAL IV (10:35)
[2025-02-26 10:40] VITALS: BP 145/61; PULSE 77; RESP 16; O2SAT 98
[2025-02-26] MEDS: BUPIVACAINE 0.25% (PF) VIAL 2 ML INJ (10:42)
[2025-02-26] MEDS: DEXAMETHASONE 10 MG/ML VIAL 20 MG INJ (10:42)
[2025-02-26 10:45] VITALS: BP 143/67; PULSE 75; RESP 16; O2SAT 99
--- NOTE | 2025-02-26 10:52 | P.PCN_ITS ---
Date/Time/Diagnoses Date of procedure: 02/26/25 Time of procedure: 10:52 Pre-procedure diagnosis: 1. CERVICAL STENOSIS, 2. CERVICAL HNP WITH UPPER EXTREMITY RADICULAR FEATURES Post-procedure diagnosis: same Procedure Notes Procedure: 1. FLUORSCOPICALLY GUIDED CONTRAST CONTROLLED INTERLAMINAR EPIDURAL STEROID INJECTION - C6/7 TL ALIVIA Indications: Ann is referred by Dr. Kang for treatment of Cervical HNP with Upper Extremity Paresthesias. Physician: Faustino Jara Total Fluoroscopy time (seconds): 24 Total sedation minutes: 11 Complications: none Procedure in detail & Post-procedure care: FINDINGS Cervical Stenosis due to disc deterioration and nerve root irritation and nerve root irritation DESCRIPTION OF PROCEDURE Fluoroscopically guided, contrast-controlled C6/7 translaminar epidural steroid injection with conscious sedation. Following review of allergy and review of potential side effects and complications, including, but not necessarily limited to, infection, allergic reaction, local tissue breakdown, temporary as well as permanent nerve injury, stroke, paralysis, and possible , the patient indicated that patient understood and agreed to proceed. An informed consent document was signed by the patient, witnessed by a nurse, and placed in the patient's chart. Additionally, other treatment options including modalities, medications, and physical therapy were reviewed with the patient. After review of previous anaesthesic history and IV conscious sedation the patient was deemed safe to proceed with today?s procedure with IV conscious sedation as ASA class II designation. Safety time-out was performed to confirm patient ID, procedure to be performed and site of procedure. IV sedation was accomplished with a combination of 2mg of Versed administered by the RN after DO order, titrated to patient comfort during the course of the procedure while the patient remained responsive to all verbal commands. In the prone position, following sterile prep and drape of the cervical region, the C6/7 translaminar space was identified fluoroscopically. The skin was anesthetized via a 25-gauge 1.5-inch needle with 1% lidocaine solution. At this point, a 25-gauge, 2.5-inch short bevel spinal needle was atraumatically introduced and advanced under fluoroscopic guidance into epidural space at the C6/7 translaminar space. Depth was confirmed on lateral view. Radiological data, including multiple fluoroscopic views of the cervical spine, reveal a spinal needle at the C6/7 translaminar space. Lateral views then show placement of the needle in the epidural space. Subsequent views show contrast material flowing superiorly and inferiorly in the epidural space. DSA fluoroscopy with live contrast injection, once again, confirmed no vascular or intrathecal uptake. At this point, using loss of resistance technique with saline and air, the epidural space was entered. Following negative aspiration, injection of approximately 1.5 cc of Isovue-200 with live fluoroscopy in the AP view confirmed epidural flow in the epidural space without vascular or intrathecal uptake observed. Subsequently, a test dose of 1 cc of 1% lidocaine solution was injected and patient was observed for two minutes without signs or symptoms of complications, including abdominal pain, shortness of breath, bilateral upper or lower extremity weakness, nausea and vomiting, prior to steroid injection. At this point, 2cc or 20mg of dexamethasone was then injected without incident. The patient tolerated the procedure well without signs or symptoms of complica tions prior to being transferred to the recovery area for further monitoring, The patient was then transferred to the recovery area where they were observed for an appropriate period of time after the injection. The patient reported a VAS score of 6 prior to the procedure and a post-procedure VAS of 0. POST OP INSTRUCTIONS The patient was provided a Pain Log to continue to record their response to the target-specific procedure prior to follow-up visit with the referring provider. Additionally, specific post-injection care instructions and a contact number to our office were provided if concerns arise regarding possible complications associated with the procedure are suspected.
[2025-02-26 11:00] VITALS: BP 134/60; PULSE 71; O2SAT 97
[2025-02-26 11:05] VITALS: BP 131/63; PULSE 71; RESP 16; O2SAT 100
== END 2025-02-26 11:16 | disposition home or self-care (01) ==
PROVIDERS: PCP Internal Medicine; Referring Provider Physical Medicine & Rehabilitation; Visit Provider Physical Medicine & Rehabilitation
DX: M48.02 Spinal stenosis, cervical region (principal); M50.123 Cervical disc disorder at C6-C7 level with radiculopathy
CPT/HCPCS: 62321; 99152; J1100; J2250

== ENCOUNTER → 2025-03-26 14:34 | Outpatient (CLI) | payer OTHER, SELFPAY | PROVIDERS: PCP Internal Medicine; Referring Provider Internal Medicine; Visit Provider Surgery | DX: K75.4 Autoimmune hepatitis (principal); I87.2 Venous insufficiency (chronic) (peripheral); L97.322 Non-pressure chronic ulcer of left ankle with fat layer exposed; L92.9 Granulomatous disorder of the skin and subcutaneous tissue, unspecified | CPT/HCPCS: 11042; 87070; 87075; 87077; 87147; 87186; 87205 ==

== ENCOUNTER → 2025-04-09 14:37 | Outpatient (CLI) | payer OTHER, SELFPAY | LOC: WC 14:40 | PROVIDERS: PCP Internal Medicine; Referring Provider Internal Medicine; Visit Provider Surgery | DX: K75.4 Autoimmune hepatitis (principal); L97.322 Non-pressure chronic ulcer of left ankle with fat layer exposed; I87.2 Venous insufficiency (chronic) (peripheral); L92.9 Granulomatous disorder of the skin and subcutaneous tissue, unspecified; L90.8 Other atrophic disorders of skin; R60.0 Localized edema; Z88.0 Allergy status to penicillin; Z79.620 Long term (current) use of immunosuppressive biologic | CPT/HCPCS: 11042; 99213 ==

== ENCOUNTER → 2025-04-23 14:31 | Outpatient (CLI) | payer OTHER, SELFPAY | LOC: WC 14:31 | PROVIDERS: PCP Internal Medicine; Referring Provider Internal Medicine; Visit Provider Surgery | DX: I87.2 Venous insufficiency (chronic) (peripheral) (principal); L97.322 Non-pressure chronic ulcer of left ankle with fat layer exposed; L08.9 Local infection of the skin and subcutaneous tissue, unspecified; L53.8 Other specified erythematous conditions; L98.8 Other specified disorders of the skin and subcutaneous tissue | CPT/HCPCS: 11042 ==

== ENCOUNTER → 2025-04-30 15:08 | Outpatient (CLI) | payer OTHER, SELFPAY | LOC: WC 15:32 | PROVIDERS: PCP Internal Medicine; Referring Provider Internal Medicine; Visit Provider Surgery | DX: K75.4 Autoimmune hepatitis (principal); I87.2 Venous insufficiency (chronic) (peripheral); L97.322 Non-pressure chronic ulcer of left ankle with fat layer exposed; L81.8 Other specified disorders of pigmentation; L92.9 Granulomatous disorder of the skin and subcutaneous tissue, unspecified; L90.8 Other atrophic disorders of skin; L53.9 Erythematous condition, unspecified | CPT/HCPCS: 11042 ==

== ENCOUNTER → 2025-05-11 14:50 | Outpatient (CLI) | payer OTHER, SELFPAY | LOC: WC 15:06 | PROVIDERS: PCP Internal Medicine; Referring Provider Internal Medicine; Visit Provider Surgery | DX: I87.2 Venous insufficiency (chronic) (peripheral) (principal); L97.322 Non-pressure chronic ulcer of left ankle with fat layer exposed; L53.8 Other specified erythematous conditions; L98.8 Other specified disorders of the skin and subcutaneous tissue | CPT/HCPCS: 11042; 99213 ==

== ENCOUNTER → 2025-05-18 14:46 | Outpatient (CLI) | payer OTHER, SELFPAY | LOC: WC 14:47 | PROVIDERS: PCP Internal Medicine; Referring Provider Internal Medicine; Visit Provider Surgery | DX: I87.2 Venous insufficiency (chronic) (peripheral) (principal); L97.322 Non-pressure chronic ulcer of left ankle with fat layer exposed; L08.9 Local infection of the skin and subcutaneous tissue, unspecified; L53.8 Other specified erythematous conditions; L98.8 Other specified disorders of the skin and subcutaneous tissue | CPT/HCPCS: 11042 ==

== ENCOUNTER → 2025-05-25 16:18 | Outpatient (CLI) | payer OTHER, SELFPAY ==
[2025-05-25 17:36] LABS: Hematocrit 37.6 % (36-46); Hemoglobin 12.7 g/dL (12.0-16.0); Mean Corpuscular HGB Conc 33.7 % (30-36); Mean Corpuscular Hemoglobin 32.9 PG (26-34); Mean Corpuscular Volume 97.5 fL (80-100); Platelet Count 254 X10^3/uL (150-400)
[2025-05-25 18:01] LABS: Alanine Aminotransferase 20 IU/L (<35); Albumin 3.9 g/dL (3.5-5.0); Albumin Globulin Ratio 1.4 (1.0-2.8); Alkaline Phosphatase 81 U/L (38-126); Blood Urea Nitrogen 36 mg/dL (7-17); Calcium 9.8 mg/dL (8.4-10.2); Carbon Dioxide 28 mmol/L (22-32); Chloride 103 mmol/L (98-107); Cholesterol 210 mg/dL (140-199); Estimated Glomerular Filt Rate > 60 mL/min (>60); Globulin 2.7 g/dL (1.7-4.1); Glucose 97 mg/dL (70-99); HDL Cholesterol 65 mg/dL (40-60); HEMOLYSIS < 15 (0-50); Potassium 4.4 mmol/L (3.4-5.1); Sodium 137 mmol/L (137-145); Total Protein 6.6 g/dL (6.3-8.2); Triglycerides 98 mg/dL (35-150)
[2025-05-25 18:28] LABS: TSH w/ Reflex to FT4 29.80 uIU/mL (0.47-4.68)
[2025-05-25 20:26] LABS: Free T4, Direct Thyroxine 0.98 ng/dL (0.78-2.19)
== END ==
PROVIDERS: PCP Internal Medicine; Referring Provider Internal Medicine; Visit Provider Internal Medicine
DX: E03.9 Hypothyroidism, unspecified (principal); E78.2 Mixed hyperlipidemia; K75.4 Autoimmune hepatitis
CPT/HCPCS: 36415; 80053; 80061; 84439; 84443; 85027

== ENCOUNTER → 2025-06-01 14:42 | Outpatient (CLI) | payer OTHER, SELFPAY | LOC: WC 14:43 | PROVIDERS: PCP Internal Medicine; Referring Provider Internal Medicine; Visit Provider Surgery | DX: I87.2 Venous insufficiency (chronic) (peripheral) (principal); L97.322 Non-pressure chronic ulcer of left ankle with fat layer exposed; L08.9 Local infection of the skin and subcutaneous tissue, unspecified; B18.2 Chronic viral hepatitis C; L53.8 Other specified erythematous conditions; L98.8 Other specified disorders of the skin and subcutaneous tissue; R21 Rash and other nonspecific skin eruption | CPT/HCPCS: 11042 ==

== ENCOUNTER → 2025-06-08 14:32 | Outpatient (CLI) | payer OTHER, SELFPAY | LOC: WC 14:33 | PROVIDERS: PCP Internal Medicine; Referring Provider Internal Medicine; Visit Provider Surgery | DX: I87.2 Venous insufficiency (chronic) (peripheral) (principal); L97.322 Non-pressure chronic ulcer of left ankle with fat layer exposed; L08.9 Local infection of the skin and subcutaneous tissue, unspecified; L53.8 Other specified erythematous conditions; L98.8 Other specified disorders of the skin and subcutaneous tissue; K75.4 Autoimmune hepatitis | CPT/HCPCS: 11106; 99213 ==

== ENCOUNTER → 2025-06-15 15:06 | Outpatient (CLI) | payer OTHER, SELFPAY | LOC: WC 15:08 | PROVIDERS: PCP Internal Medicine; Referring Provider Internal Medicine; Visit Provider Surgery | DX: I87.2 Venous insufficiency (chronic) (peripheral) (principal); L97.322 Non-pressure chronic ulcer of left ankle with fat layer exposed; L53.8 Other specified erythematous conditions; L98.8 Other specified disorders of the skin and subcutaneous tissue | CPT/HCPCS: 11042 ==

== ENCOUNTER 2025-06-21 09:08 | Emergency (ER) | payer OTHER, SELFPAY ==
[2025-06-21 09:12] VITALS: BP 172/74; PULSE 103; RESP 16; TEMP 37.1; O2SAT 99; BMI 23.4
--- NOTE | 2025-06-21 09:20 | DI.US.S_ITS ---
PROCEDURE: US PERIPH VENOUS LOW EXTREM LT INDICATIONS: swelling TECHNIQUE: Real-time imaging, as well as color and pulse Doppler interrogation, were performed of the lower extremity deep veins from the inguinal ligament to the popliteal fossa, with documentation of the visualized calf veins. COMPARISON: None. FINDINGS: Internal echoes and noncompressibility noted in the common femoral vein Remainder of the imaged vessels including the superficial femoral, popliteal, posterior tibial veins all of appropriate vasculature and compressibility IMPRESSION: Positive right common femoral deep venous thrombosis Approved by: Pawan Bhakta M.D. on 06/21/2025 at 10:51
--- NOTE | 2025-06-21 09:31 | ED.EXTPRO ---
HPI - Extremity Problem General Chief complaint: Extremity Problem,Nontraumatic Stated complaint: Edema LT leg; retaining fluid Time Seen by Provider: 06/21/25 09:19 Source: patient Mode of arrival: Ambulatory History of Present Illness HPI Narrative: Patient is a 75-year-old female history of left medial malleoli wound that has been nonhealing she is followed by wound care and infectious disease. Takes cefadroxil twice a day. She reports that the wound has been slightly more painful in her leg has gotten more swollen over the last 2-3 days. No fever or chills. She was instructed by Infectious Disease if her leg it is to be worse and she needs to go to the emergency department. She has had vein surgery in August of 2024 she had an arterial ultrasound December of 2023 which did not show any kind of stenosis. She denies any chest pain or worsening shortness of breath but says that since this wound she has had ongoing shortness of breath with exertion. No significant chest pain no abdominal pain no other symptoms. Related Data Home Medications ?Medication ?Instructions ?Recorded ?Confirmed budesonide 3 mg 3 mg PO DAILY 04/16/19 05/25/25 capsule,delayed,extended release multivitamin 1 tab PO DAILY 08/31/22 05/25/25 triamcinolone acetonide 0.1 % applic topical 09/04/24 05/25/25 topical cream cefadroxil 500 mg capsule 500 mg PO BID 12/29/24 05/25/25 Previous Rx's ?Medication ?Instructions ?Recorded rosuvastatin 5 mg tablet 5 mg PO DAILY #90 tabs 06/25/23 estradiol 0.5 mg tablet See Rx Instructions .Route 11/13/23 .COMPLEX #90 tabs oxybutynin chloride 10 mg 10 mg PO DAILY for bladder muscle 02/04/24 tablet,extended release 24 hr dysfunction #90 tabs omeprazole 20 mg capsule,delayed 20 mg PO BID #180 caps 04/08/24 release bupropion HCl 150 mg tablet,12 hr 150 mg PO QAM #90 ea 07/28/24 sustained-release venlafaxine 150 mg 150 mg PO DAILY #90 caps 10/08/24 capsule,extended release 24 hr oxycodone-acetaminophen 5 mg-325 1 tab PO BID PRN pain #60 tabs 10/30/24 mg tablet acyclovir 400 mg tablet 400 mg PO BID #180 tabs 01/26/25 celecoxib 200 mg capsule 200 mg PO DAILY #90 caps 01/26/25 mycophenolate sodium 360 mg 360 mg PO Q12H #120 tabs 05/26/25 tablet,delayed release levothyroxine 137 mcg tablet 137 mcg PO DAILY #90 tabs 05/27/25 (Synthroid) apixaban 5 mg (74 tabs) tablets in See Rx Instructions PO .COMPLEX 06/21/25 a dose pack (Eliquis DVT-PE Treat #74 ea 30D Start) Allergies Allergy/AdvReac Type Severity Reaction Status Date / Time Penicillins Allergy Mild RASH Verified 06/21/25 09:12 ertapenem AdvReac Severe Seizure Verified 06/21/25 09:12 Patient History Medical History Acquired hypothyroidism Ankle osteomyelitis, left Cervical myelopathy with cervical radiculopathy Cervical radiculopathy, chronic Cervical spine disease Chronic back pain Cystocele Depression, major, recurrent Generalized anxiety disorder Graves disease Herpesviral infection Microscopic colitis Mixed hyperlipidemia Osteopenia after menopause Postmenopausal hormone replacement therapy Primary osteoarthritis involving multiple joints Recurrent UTI Rosacea Scoliosis Ulcer of left ankle Surgical History History of tonsillectomy Status post laparoscopic supracervical hysterectomy Family History Brother Mental health problem Alcoholic Cancer Cirrhosis Father Alcoholic Diabetes mellitus Cirrhosis Mother Mental health problem Alcoholic Sister Cancer Social History Smoking Status: Never smoker Smoking Status: Never smoker alcohol intake frequency: holidays/special occasions only Exam Initial Vital Signs Initial Vital Signs: Vital Signs Temperature 98.7 F 06/21/25 09:12 Pulse Rate 103 H 06/21/25 09:12 Respiratory Rate 16 06/21/25 09:12 Blood Pressure 172/74 H 06/21/25 09:12 Pulse Oximetry 99 06/21/25 09:12 Oxygen Delivery Method Room Air 06/21/25 09:12 GENERAL: Alert pleasant 75-year-old female and in no acute distress. HEENT: Head atraumatic,EOMI, pupils reactive, face symmetric, moist mucous membranes CARDIOVASCULAR: Regular rate and rhythm without murmurs, rubs or gallops. RESPIRATORY: Breath sounds equal bilaterally, no wheezes rales or rhonchi. ABDOMEN: Soft, nontender. Normoactive bowel sounds all 4 quadrants. No guarding or rebound. EXTREMITIES: Normal range of motion, no clubbing or edema. Neurovascularly intact NEUROLOGICAL: Alert and oriented x4.Normal gait and speech. Cranial nerves II through XII grossly intact. SKIN: Left malleoli 4 x 3.5 cm open wound with some mild surrounding erythema no streaking Course Orders Ordered: Discontinued Medications Apixaban (Apixaban 5 Mg Tablet) 5 mg PO NOW ONE Stop: 06/21/25 12:17 Last Admin: 06/21/25 12:21 Dose: 5 mg Documented By: CHERYL Apixaban (Apixaban 5 Mg Tablet) 5 mg PO NOW ONE Stop: 06/21/25 12:24 Last Admin: 06/21/25 12:29 Dose: 5 mg Documented By: CHERYL Vital Signs Vital signs: Vital Signs - 8 hr 06/21/25 09:12 06/21/25 12:17 06/21/25 12:17 Temperature 98.7 F Pulse Rate 103 H 76 Respiratory Rate 16 Blood Pressure 172/74 H 132/66 Pulse Oximetry 99 88 L Oxygen Delivery Method Room Air MDM - Extremity (Nontraumatic) Lab Data 06/21/25 09:39 06/21/25 09:39 Labs: Lab Results 06/21/25 Range/Units 09:39 WBC 5.5 (4.5-11.0) X10^3/uL RBC 3.83 L (4.0-5.2) X10^6/uL Hgb 12.6 (12.0-16.0) g/dL Hct 37.0 (36-46) % MCV 96.6 (80-100) fL MCH 33.0 (26-34) PG MCHC 34.1 (30-36) % RDW 13.1 (11.6-14.8) % Plt Count 277 (150-400) X10^3/uL Neut % (Auto) 64.0 (50-75) % Lymph % (Auto) 18.7 L (25-40) % Clark % (Auto) 14.6 H (3-14) % Eos % (Auto) 1.8 L (2-4) % Baso % (Auto) 0.9 (0-2) % Neut # (Auto) 3500 (2144-0905) /uL Lymph # (Auto) 1000 L (3101-3380) /uL Clark # (Auto) 800 (0-900) /uL Eos # (Auto) 100 (0-450) /uL Baso # (Auto) 0 (0-100) /uL Sodium 139 (137-145) mmol/L Potassium 4.0 (3.4-5.1) mmol/L Chloride 105 (98-107) mmol/L Carbon Dioxide 23 (22-32) mmol/L BUN 39 H (7-17) mg/dL Creatinine 0.83 (0.52-1.04) mg/dL Estimated GFR > 60 (>60) mL/min BUN/Creatinine Ratio 47.0 H (6-22) Glucose 97 (70-99) mg/dL Lactate 0.9 (0.7-2.1) mmol/L Calcium 9.4 (8.4-10.2) mg/dL Total Bilirubin 0.4 (0.2-1.3) mg/dL AST 34 (14-36) IU/L ALT 23 (<35) IU/L Alkaline Phosphatase 93 (38-126) U/L Total Protein 7.7 (6.3-8.2) g/dL Albumin 4.5 (3.5-5.0) g/dL Globulin 3.2 (1.7-4.1) g/dL Albumin/Globulin Ratio 1.4 (1.0-2.8) Imaging Data US - DVT: Radiologist's Impression: PROCEDURE: US PERIPH VENOUS LOW EXTREM LT INDICATIONS: swelling TECHNIQUE: Real-time imaging, as well as color and pulse Doppler interrogation, were performed of the lower extremity deep veins from the inguinal ligament to the popliteal fossa, with documentation of the visualized calf veins. COMPARISON: None. FINDINGS: Internal echoes and noncompressibility noted in the common femoral vein Remainder of the imaged vessels including the superficial femoral, popliteal, posterior tibial veins all of appropriate vasculature and compressibility IMPRESSION: Positive right common femoral deep venous thrombosis Approved by: Pawan Bhakta M.D. on 06/21/2025 at 10:51 us arterial: Radiologist's Impression: PROCEDURE: US ARTERIAL DUPLEX LE LT INDICATIONS: non healing wound TECHNIQUE: Color and pulse Doppler interrogation was performed of the left lower extremity arterial system, with image documentation. COMPARISON: [facility], , US ARTERIAL DUPLEX LE LT, 01/23/2024, 9:58. FINDINGS: Left lower extremity: Biphasic waveforms Common femoral artery: 200 cm/sec Deep femoral artery: 117 cm/sec Proximal superficial femoral artery: 131 cm/sec Mid superficial femoral artery: 106 cm/sec Distal superficial femoral artery: 83 cm/sec Popliteal artery: 90 cm/sec Posterior tibial artery: 52 cm/sec Anterior tibial artery/dorsalis pedis: 52 cm/sec Walsh-scale imaging description: Atherosclerotic plaque IMPRESSION: Diffuse atherosclerotic plaque without focal stenosis. Elevated common femoral artery velocity suggests inflow disease. Approved by: Pawan Bhakta M.D. on 06/21/2025 at 11:12 MDM Narrative Medical decision making narrative: Patient is 75-year-old female presenting today with chronic ongoing left lower extremity wound. It is nonhealing followed closely by Infectious Disease now. It is definitely more swollen than the right leg all up superior her knee. There is mild erythema she does not have any streaking no gross drainage. Blood work has been reviewed she has no leukocytosis no anemia a significant left shift electrolytes are within normal limits Arterial ultrasound does show diffuse plaque but no significant stenosis she also has a strong palpable pulse in her foot so no concern for acute arterial occlusion Ultrasound venous is positive for a DVT in right common femoral Patient updated on test results and symptoms. She has no contraindication to anticoagulation and given her 1st dose of Eliquis here in the ED I spoke with pharmacy [facility] patient needs pre-approval initially wrote for the starter pack of Eliquis was change to the 5 mg tablets still needed prior authorization from insurance company. Unable to do this from the emergency department. 06/22/[address] Kang, PCP updated on the fact that patient needs prior authorization for Eliquis he is aware and work on it. Discharge Plan Departure Patient Disposition: Home Clinical Impression: DVT (deep venous thrombosis) Instructions: Deep Vein Thrombosis Activity Restrictions/Additional Instructions: *You have been diagnosed with DVT *What to do: At this time you have a blood clot in the left leg. This will take time to dissolve. You are starting on a blood thinner called Eliquis. There is increased risk of bleeding with this medication. If you should fall and hit your head or have bloody stool please return to the emergency department. *Continue to take medications as directed Eliquis 10 mg twice a day for 7 days then 5 mg twice daily, do not combine with aspirin ibuprofen/Aleve/Motrin *Follow up with your primary care provider in 2-3 days or call [phone] *Return to ER if you should have increasing bleeding redness weakness or any new, worsening or concerning symptoms Prescriptions: New Eliquis DVT-PE Treat 30D Start 5 mg (74 tabs) tablets,dose pack See Rx Instructions .ROUTE .COMPLEX Qty: 74 0RF Rx Instructions: orally per package directions No Action rosuvastatin 5 mg tablet 5 mg PO DAILY Qty: 90 3RF estradiol 0.5 mg tablet See Rx Instructions .ROUTE .COMPLEX Qty: 90 4RF Dose Instruction: TAKE 1 TABLET BY MOUTH EVERY DAY FOR HORMONE REPLACEMENT Rx Instructions: TAKE 1 TABLET BY MOUTH EVERY DAY FOR HORMONE REPLACEMENT oxybutynin chloride 10 mg tablet extended release 24hr 10 mg PO DAILY Qty: 90 3RF omeprazole 20 mg capsule,delayed release(DR/EC) 20 mg PO BID Qty: 180 3RF bupropion HCl 150 mg tablet sustained-release 12 hr 150 mg PO QAM Qty: 90 3RF venlafaxine 150 mg capsule,extended release 24hr 150 mg PO DAILY Qty: 90 3RF acyclovir 400 mg tablet 400 mg PO BID Qty: 180 3RF celecoxib 200 mg capsule 200 mg PO DAILY Qty: 90 3RF levothyroxine [Synthroid] 137 mcg tablet 137 mcg PO DAILY Qty: 90 1RF Rx Instructions: brand name only triamcinolone acetonide 0.1 % cream topical mycophenolate sodium 360 mg tablet,delayed release (DR/EC) 360 mg PO Q12H Qty: 120 0RF budesonide 3 mg capsule,delayed,extend.release 3 mg PO DAILY multivitamin Tablet 1 tab PO DAILY oxycodone-acetaminophen 5-325 mg tablet 1 tab PO BID PRN (Reason: pain) Qty: 60 0RF cefadroxil 500 mg capsule 500 mg PO BID Referrals: Abdiel Kang MD [Primary Care Provider, Internal Medicine] Stand Alone Forms: Patient Portal/API
[2025-06-21 09:47] LABS: Add Manual Diff / Slide Review NO; Hematocrit 37.0 % (36-46); Hemoglobin 12.6 g/dL (12.0-16.0); Lymphocytes Absolute Auto 1000 /uL (1100-4500); Mean Corpuscular HGB Conc 34.1 % (30-36); Mean Corpuscular Hemoglobin 33.0 PG (26-34); Mean Corpuscular Volume 96.6 fL (80-100); Platelet Count 277 X10^3/uL (150-400)
[2025-06-21 10:00] LABS: Lactate (Lactic Acid) 0.9 mmol/L (0.7-2.1)
[2025-06-21 10:01] LABS: Alanine Aminotransferase 23 IU/L (<35); Albumin 4.5 g/dL (3.5-5.0); Albumin Globulin Ratio 1.4 (1.0-2.8); Alkaline Phosphatase 93 U/L (38-126); Blood Urea Nitrogen 39 mg/dL (7-17); Calcium 9.4 mg/dL (8.4-10.2); Carbon Dioxide 23 mmol/L (22-32); Chloride 105 mmol/L (98-107); Estimated Glomerular Filt Rate > 60 mL/min (>60); Globulin 3.2 g/dL (1.7-4.1); Glucose 97 mg/dL (70-99); HEMOLYSIS 16 (0-50); Potassium 4.0 mmol/L (3.4-5.1); Sodium 139 mmol/L (137-145); Total Protein 7.7 g/dL (6.3-8.2)
--- NOTE | 2025-06-21 10:41 | DI.US.S_ITS ---
PROCEDURE: US ARTERIAL DUPLEX LE LT INDICATIONS: non healing wound TECHNIQUE: Color and pulse Doppler interrogation was performed of the left lower extremity arterial system, with image documentation. COMPARISON: [facility], [place], US ARTERIAL DUPLEX LE LT, 01/23/2024, 9:58. FINDINGS: Left lower extremity: Biphasic waveforms Common femoral artery: 200 cm/sec Deep femoral artery: 117 cm/sec Proximal superficial femoral artery: 131 cm/sec Mid superficial femoral artery: 106 cm/sec Distal superficial femoral artery: 83 cm/sec Popliteal artery: 90 cm/sec Posterior tibial artery: 52 cm/sec Anterior tibial artery/dorsalis pedis: 52 cm/sec Walsh-scale imaging description: Atherosclerotic plaque IMPRESSION: Diffuse atherosclerotic plaque without focal stenosis. Elevated common femoral artery velocity suggests inflow disease. Approved by: Pawan Bhakta M.D. on 06/21/2025 at 11:12
[2025-06-21 12:17] VITALS: BP 132/66; PULSE 76; O2SAT 88
[2025-06-21] MEDS: APIXABAN 5 MG TABLET PO ×2 (12:21→12:29)
== END 2025-06-21 12:55 | disposition home or self-care (01) ==
PROVIDERS: Emergency Provider Emergency Medicine; PCP Internal Medicine
DX: I82.412 Acute embolism and thrombosis of left femoral vein (principal); L97.329 Non-pressure chronic ulcer of left ankle with unspecified severity
CPT/HCPCS: 36415; 80053; 83605; 85025; 87040; 93926; 93971; 99283; 99284

== ENCOUNTER → 2025-06-22 13:38 | Outpatient (CLI) | payer OTHER, SELFPAY | LOC: WC 13:47 | PROVIDERS: PCP Internal Medicine; Referring Provider Internal Medicine; Visit Provider Surgery | DX: I87.2 Venous insufficiency (chronic) (peripheral) (principal); L97.322 Non-pressure chronic ulcer of left ankle with fat layer exposed; L53.8 Other specified erythematous conditions; L98.8 Other specified disorders of the skin and subcutaneous tissue | CPT/HCPCS: 11042 ==

== ENCOUNTER → 2025-06-29 15:32 | Outpatient (CLI) | payer OTHER, SELFPAY | PROVIDERS: PCP Internal Medicine; Referring Provider Internal Medicine; Visit Provider Internal Medicine | DX: Z12.11 Encounter for screening for malignant neoplasm of colon (principal) | CPT/HCPCS: 82274 ==

== ENCOUNTER → 2025-06-29 16:22 | Outpatient (CLI) | payer OTHER, SELFPAY | PROVIDERS: PCP Internal Medicine; Referring Provider Internal Medicine; Visit Provider Surgery | DX: I87.2 Venous insufficiency (chronic) (peripheral) (principal); L97.322 Non-pressure chronic ulcer of left ankle with fat layer exposed; L92.8 Other granulomatous disorders of the skin and subcutaneous tissue; L98.8 Other specified disorders of the skin and subcutaneous tissue; R23.4 Changes in skin texture | CPT/HCPCS: 11042 ==

== ENCOUNTER → 2025-07-06 14:32 | Outpatient (CLI) | payer OTHER, SELFPAY | LOC: WC 14:33 | PROVIDERS: PCP Internal Medicine; Referring Provider Internal Medicine; Visit Provider Surgery | DX: K75.4 Autoimmune hepatitis (principal); L97.322 Non-pressure chronic ulcer of left ankle with fat layer exposed; I87.2 Venous insufficiency (chronic) (peripheral); L81.8 Other specified disorders of pigmentation; L92.9 Granulomatous disorder of the skin and subcutaneous tissue, unspecified; L90.8 Other atrophic disorders of skin; I82.412 Acute embolism and thrombosis of left femoral vein; Z79.01 Long term (current) use of anticoagulants | CPT/HCPCS: 11042; 99213 ==

== ENCOUNTER → 2025-07-13 14:43 | Outpatient (CLI) | payer OTHER, SELFPAY | LOC: WC 14:43 | PROVIDERS: PCP Internal Medicine; Referring Provider Internal Medicine; Visit Provider Surgery | DX: I87.2 Venous insufficiency (chronic) (peripheral) (principal); L97.322 Non-pressure chronic ulcer of left ankle with fat layer exposed; L08.9 Local infection of the skin and subcutaneous tissue, unspecified; L53.9 Erythematous condition, unspecified; L53.8 Other specified erythematous conditions; R23.4 Changes in skin texture | CPT/HCPCS: 11042; 87070; 87075; 87205 ==

== ENCOUNTER 2025-07-16 17:45 | Emergency (ER) | payer OTHER, SELFPAY ==
[2025-07-16 17:54] VITALS: BP 156/82; PULSE 85; RESP 16; TEMP 36.2; O2SAT 98; BMI 23.4
--- NOTE | 2025-07-16 17:59 | DI.CT.S_ITS ---
PROCEDURE: CT CERVICAL SPINE WO CON INDICATIONS: fall on thinners TECHNIQUE: Noncontrast 3 mm thick sections acquired from the skull base to the T4 level. Sagittal and coronal reformats were then constructed. For radiation dose reduction, the following was used: automated exposure control, adjustment of mA and/or kV according to patient size. COMPARISON: [facility], [place], XR CERVICAL SPINE 4V OR 5V, 12/25/2024, 15:34. FINDINGS: Image quality: Diagnostic Bones: Focal kyphosis in the cervical spine and anterolisthesis of C3 on C4, as before. No new traumatic subluxation. No displaced fracture. Moderate background spondylosis with disc space height loss worst from C4-C6. Soft tissues: No significant prevertebral soft tissue swelling. IMPRESSION: No displaced fracture or traumatic subluxation. Reversal of the normal cervical lordosis as well as moderate degenerative changes. Unchanged C3 on C4 anterolisthesis. If there is high concern for further derangement, consider MRI evaluation. Dictated by: Basilio Li M.D. on 07/16/2025 at 18:25 Approved by: Basilio Li M.D. on 07/16/2025 at 18:27
--- NOTE | 2025-07-16 17:59 | DI.CT.S_ITS ---
PROCEDURE: CT HEAD/BRAIN WO CON INDICATIONS: fall on thinners TECHNIQUE: Noncontrast 4.5 mm thick angled axial sections acquired from the foramen magnum to the vertex, with coronal and sagittal reformats. For radiation dose reduction, the following was used: automated exposure control, adjustment of mA and/or kV according to patient size. COMPARISON: [facility], CT, CT HEAD/BRAIN WO CON, 01/20/2024, 0:11. FINDINGS: Image quality: Diagnostic CSF spaces: Basal cisterns are patent. Lateral ventricles are symmetric. Volume: Vascular calcifications. Periventricular white matter disease is commonly seen with chronic microangiopathy. Volume loss is present. These findings are [id number] Brain: No acute hemorrhage. No gross loss of crenshaw-white differentiation Craniofacial structures: No significant paranasal sinus opacity IMPRESSION: No acute intracranial hemorrhage. Dictated by: Basilio Li M.D. on 07/16/2025 at 18:24 Approved by: Basilio Li M.D. on 07/16/2025 at 18:25
--- NOTE | 2025-07-16 18:47 | ED.FALL ---
HPI - Fall General Chief Complaint: Trauma Stated Complaint: Fall. Time Seen by Provider: 07/16/25 17:59 Source: patient Mode of arrival: Ambulatory History of Present Illness HPI Narrative: 75-year-old female history of DVT on Eliquis had a mechanical ground level fall today tripped over a dog while walking outside hitting her head against the cement. Patient denies any loss of consciousness, but does have a headache. She denies any nausea, vomiting, blurred vision, neck pain, back pain, bowel or bladder incontinence, chest, pain, shortness of breath, lightheadedness, dizziness, bowel or bladder incontinence or gait instability. Other than what is stated 14 point review of system is negative. Related Data Home Medications ?Medication ?Instructions ?Recorded ?Confirmed budesonide 3 mg 3 mg PO DAILY 04/16/19 07/09/25 capsule,delayed,extended release multivitamin 1 tab PO DAILY 08/31/22 07/09/25 triamcinolone acetonide 0.1 % applic topical 09/04/24 07/09/25 topical cream cefadroxil 500 mg capsule 500 mg PO BID 12/29/24 07/09/25 Previous Rx's ?Medication ?Instructions ?Recorded rosuvastatin 5 mg tablet 5 mg PO DAILY #90 tabs 06/25/23 estradiol 0.5 mg tablet See Rx Instructions .Route 11/13/23 .COMPLEX #90 tabs oxybutynin chloride 10 mg 10 mg PO DAILY for bladder muscle 02/04/24 tablet,extended release 24 hr dysfunction #90 tabs omeprazole 20 mg capsule,delayed 20 mg PO BID #180 caps 04/08/24 release venlafaxine 150 mg 150 mg PO DAILY #90 caps 10/08/24 capsule,extended release 24 hr oxycodone-acetaminophen 5 mg-325 1 tab PO BID PRN pain #60 tabs 10/30/24 mg tablet acyclovir 400 mg tablet 400 mg PO BID #180 tabs 01/26/25 celecoxib 200 mg capsule 200 mg PO DAILY #90 caps 01/26/25 mycophenolate sodium 360 mg 360 mg PO Q12H #120 tabs 05/26/25 tablet,delayed release levothyroxine 137 mcg tablet 137 mcg PO DAILY #90 tabs 05/27/25 (Synthroid) apixaban 5 mg tablet 5 mg PO BID #60 tabs 06/24/25 bupropion HCl 150 mg tablet,12 hr 150 mg PO QAM #90 ea 07/08/25 sustained-release Allergies Allergy/AdvReac Type Severity Reaction Status Date / Time Penicillins Allergy Mild RASH Verified 07/16/25 17:54 ertapenem AdvReac Severe Seizure Verified 07/16/25 17:54 Review of Systems Review of Systems ROS Unobtainable: All systems reviewed & are unremarkable except as noted in HPI and below Patient History Medical History Acquired hypothyroidism Ankle osteomyelitis, left Cervical myelopathy with cervical radiculopathy Cervical radiculopathy, chronic Cervical spine disease Chronic back pain Cystocele Depression, major, recurrent Generalized anxiety disorder Graves disease Herpesviral infection Microscopic colitis Mixed hyperlipidemia Osteopenia after menopause Postmenopausal hormone replacement therapy Primary osteoarthritis involving multiple joints Recurrent UTI Rosacea Scoliosis Ulcer of left ankle Surgical History History of tonsillectomy Status post laparoscopic supracervical hysterectomy Family History Brother Mental health problem Alcoholic Cancer Cirrhosis Father Alcoholic Diabetes mellitus Cirrhosis Mother Mental health problem Alcoholic Sister Cancer alcohol intake frequency: holidays/special occasions only Exam Narrative Exam Narrative: GENERAL: [75] year old patient appears stated age. Well-developed patient, in mild distress. HEAD: Atraumatic. Normocephalic. EYES: Pupils equal round and reactive. Extraocular motions intact. No scleral icterus. No injection or drainage. ENT: Nose without bleeding, purulent drainage. Throat without erythema, tonsillar hypertrophy or exudate. Airway patent. NECK: Trachea midline. Non tender CARDIOVASCULAR: Regular rate and rhythm without murmurs, gallops, or rubs. RESPIRATORY: Clear to auscultation. Breath sounds equal bilaterally. No wheezes, rales, or rhonchi. GASTROINTESTINAL: Abdomen soft, non-tender, nondistended. EXTREMITIES: No edema or joint tenderness. BACK: Nontender without deformity or crepitance. No flank tenderness. NEURO: AOx3. SKIN: No rash or erythema of visible areas. Left temporal hematoma dime-size Initial Vital Signs Initial Vital Signs: Vital Signs Temperature 97.1 F L 07/16/25 17:54 Pulse Rate 85 07/16/25 17:54 Respiratory Rate 16 07/16/25 17:54 Blood Pressure 156/82 H 07/16/25 17:54 Pulse Oximetry 98 07/16/25 17:54 Oxygen Delivery Method Room Air 07/16/25 17:54 Procedures Laceration Repair Laceration 1: Time of procedure: 21:35 Site: scalp Side (If applicable): left Size (cm): 0.5 Description: linear Depth: simple, single layer Local Anesthetic: lidocaine 1% and with epi Amount of anesthesia used (mL): 2 Skin layer closed with: nylon Skin layer suture size: 5-0 Number of sutures: 2 Course Orders Ordered: ED Orders 07/16/25 17:59 CT cervical spine wo con Stat CT head/brain wo con Stat Vital Signs Vital signs: Vital Signs - 8 hr 07/16/25 17:54 07/16/25 21:13 Temperature 97.1 F L Pulse Rate 85 77 Respiratory Rate 16 16 Blood Pressure 156/82 H 149/89 H Pulse Oximetry 98 99 Oxygen Delivery Method Room Air Room Air MDM - Fall Imaging Data CT scan - head: Radiologist's Impression: [address] [address] [address] Scan Report Signed Patient: Ann Murcia MR#: [id number] : 1950 Acct:[id number] Age/Sex: 75 / F Date of Service: 07/16/25 Loc: ED Accession Number: [id number] Procedure: CT head/brain wo con Ordering Provider: Cassidy Jacobs D.O. PROCEDURE: CT HEAD/BRAIN WO CON INDICATIONS: fall on thinners TECHNIQUE: Noncontrast 4.5 mm thick angled axial sections acquired from the foramen magnum to the vertex, with coronal and sagittal reformats. For radiation dose reduction, the following was used: automated exposure control, adjustment of mA and/or kV according to patient size. COMPARISON: [facility], CT, CT HEAD/BRAIN WO CON, 01/20/2024, 0:11. FINDINGS: Image quality: Diagnostic CSF spaces: Basal cisterns are patent. Lateral ventricles are symmetric. Volume: Vascular calcifications. Periventricular white matter disease is commonly seen with chronic microangiopathy. Volume loss is present. These findings are [id number] Brain: No acute hemorrhage. No gross loss of crenshaw-white differentiation Craniofacial structures: No significant paranasal sinus opacity IMPRESSION: No acute intracranial hemorrhage. Dictated by: Basilio Li M.D. on 07/16/2025 at 18:24 Approved by: Basilio Li M.D. on 07/16/2025 at 18:25 CT - cervical spine: Radiologist's Impression: [address] [address] [address] Scan Report Signed Patient: Ann Murcia MR#: [id number] : 1950 Acct:[id number] Age/Sex: 75 / F Date of Service: 07/16/25 Loc: ED Accession Number: [id number] Procedure: CT cervical spine wo con Ordering Provider: Cassidy Jacobs D.O. PROCEDURE: CT CERVICAL SPINE WO CON INDICATIONS: fall on thinners TECHNIQUE: Noncontrast 3 mm thick sections acquired from the skull base to the T4 level. Sagittal and coronal reformats were then constructed. For radiation dose reduction, the following was used: automated exposure control, adjustment of mA and/or kV according to patient size. COMPARISON: [facility], CR, XR CERVICAL SPINE 4V OR 5V, 12/25/2024, 15:34. FINDINGS: Image quality: Diagnostic Bones: Focal kyphosis in the cervical spine and anterolisthesis of C3 on C4, as before. No new traumatic subluxation. No displaced fracture. Moderate background spondylosis with disc space height loss worst from C4-C6. Soft tissues: No significant prevertebral soft tissue swelling. IMPRESSION: No displaced fracture or traumatic subluxation. Reversal of the normal cervical lordosis as well as moderate degenerative changes. Unchanged C3 on C4 anterolisthesis. If there is high concern for further derangement, consider MRI evaluation. MDM Narrative Medical decision making narrative: All lab work, vital signs, nurse triage note, medication list, previous ER visits, and all imaging studies reviewed. CT scan head and neck showed no acute process 2 stitches placed. Differential dx - fracture, hemorrhage, contusion, hematoma. Discharge Plan Departure Patient Disposition: Home Clinical Impression: Hematoma, Facial laceration Instructions: DI for Trauma Activity Restrictions/Additional Instructions: Return with new or worsening symptoms. Follow up PCP in 3-5 days for suture removal. Prescriptions: No Action rosuvastatin 5 mg tablet 5 mg PO DAILY Qty: 90 3RF estradiol 0.5 mg tablet See Rx Instructions .ROUTE .COMPLEX Qty: 90 4RF Dose Instruction: TAKE 1 TABLET BY MOUTH EVERY DAY FOR HORMONE REPLACEMENT Rx Instructions: TAKE 1 TABLET BY MOUTH EVERY DAY FOR HORMONE REPLACEMENT oxybutynin chloride 10 mg tablet extended release 24hr 10 mg PO DAILY Qty: 90 3RF omeprazole 20 mg capsule,delayed release(DR/EC) 20 mg PO BID Qty: 180 3RF venlafaxine 150 mg capsule,extended release 24hr 150 mg PO DAILY Qty: 90 3RF acyclovir 400 mg tablet 400 mg PO BID Qty: 180 3RF celecoxib 200 mg capsule 200 mg PO DAILY Qty: 90 3RF levothyroxine [Synthroid] 137 mcg tablet 137 mcg PO DAILY Qty: 90 1RF Rx Instructions: brand name only triamcinolone acetonide 0.1 % cream topical mycophenolate sodium 360 mg tablet,delayed release (DR/EC) 360 mg PO Q12H Qty: 120 0RF bupropion HCl 150 mg tablet sustained-release 12 hr 150 mg PO QAM Qty: 90 3RF apixaban 5 mg tablet 5 mg PO BID Qty: 60 1RF budesonide 3 mg capsule,delayed,extend.release 3 mg PO DAILY multivitamin Tablet 1 tab PO DAILY oxycodone-acetaminophen 5-325 mg tablet 1 tab PO BID PRN (Reason: pain) Qty: 60 0RF cefadroxil 500 mg capsule 500 mg PO BID Referrals: Abdiel Kang MD [Primary Care Provider, Internal Medicine] Stand Alone Forms: Patient Portal/API
[2025-07-16 21:13] VITALS: BP 149/89; PULSE 77; RESP 16; O2SAT 99
== END 2025-07-16 21:44 | disposition home or self-care (01) ==
PROVIDERS: Emergency Provider Family Medicine; PCP Internal Medicine
DX: S01.01XA Laceration without foreign body of scalp, initial encounter (principal); R51.9 Headache, unspecified; W18.09XA Striking against other object with subsequent fall, initial encounter
CPT/HCPCS: 12001; 70450; 72125; 99281; 99284

== ENCOUNTER → 2025-07-20 14:44 | Outpatient (CLI) | payer OTHER, SELFPAY | LOC: WC 14:44 | PROVIDERS: PCP Internal Medicine; Referring Provider Internal Medicine; Visit Provider Surgery | DX: I87.2 Venous insufficiency (chronic) (peripheral) (principal); L97.322 Non-pressure chronic ulcer of left ankle with fat layer exposed; L08.9 Local infection of the skin and subcutaneous tissue, unspecified; R23.4 Changes in skin texture; L53.8 Other specified erythematous conditions | CPT/HCPCS: 11042 ==